=== PATIENT | female | born 1975 | race African-American/Black ===

== ENCOUNTER 2017-02-02 23:12 | Inpatient (IN) | payer OTHER ==
[2017-02-03 00:09] LABS: BASOPHIL 0.1 % (0-2.0); MCH 28.6 pg (25.7-33.7); MCHC 32.4 g/dl (32.0-36.0); MEAN CELL VOLUME 88.1 fl (80-96); MEAN PLT VOLUME 8.5 fl (7.5-11.1); NEUTROPHILS 87.7 % (42.8-82.8); PLATELET COUNT 326 K/MM3 (134-434); RDW 18.2 % (11.6-15.6); WHITE BLOOD COUNT 16.3 K/mm3 (4.0-10.0)
[2017-02-03 00:10] LABS: URINE APPEARANCE CLEAR; URINE BILIRUBIN NEGATIVE (NEGATIVE); URINE BLOOD NEGATIVE (NEGATIVE); URINE COLOR YELLOW; URINE GLUCOSE (UA) 3+ (NEGATIVE); URINE KETONE TRACE (NEGATIVE); URINE LEUK ESTERASE NEGATIVE (NEGATIVE); URINE NITRITE NEGATIVE (NEGATIVE); URINE UROBILINOGEN NEGATIVE E.U./dl (0.2-1.0)
[2017-02-03 00:15] LABS: URINE PROTEIN 1+ (NEGATIVE)
[2017-02-03 00:17] LABS: URINE BACTERIA RARE /hpf (NONE SEEN); URINE HYALINE CAST 26 /lpf; URINE MUCUS MANY; URINE RBC 2 /hpf (0-3); URINE WBC 2 /hpf (3-5)
[2017-02-03] MEDS ORDERED: SODIUM CHLORIDE 1,000 ML IV STA ×2 (00:18→03:10)
[2017-02-03] MEDS ORDERED: ONDANSETRON 4 MG/2 ML VIAL IVPUSH ONE ×2 (00:18→03:10)
[2017-02-03] MEDS ORDERED: morphine CARPU-JECT 4 MG/1 ML DISP.SYRIN IVPUSH ONE ×2 (00:18→03:10)
[2017-02-03] MEDS ORDERED: ONDANSETRON 4 MG/2 ML VIAL ONE ×2 (00:28→03:20)
[2017-02-03] MEDS ORDERED: morphine CARPU-JECT 4 MG/1 ML DISP.SYRIN ONE ×2 (00:28→03:20)
[2017-02-03 00:29] LABS: ALBUMIN 3.6 g/dl (3.4-5.0); ALK PHOS 128 U/L (45-117); ANION GAP 17 (8-16); CALCIUM 8.5 mg/dL (8.5-10.1); CO2 23 mmol/L (21-32); COCKROFT - GAULT 71.5615; CREATININE 0.8 mg/dL (0.55-1.02); SGOT/AST 28 U/L (15-37); SGPT/ALT 26 U/L (12-78)
[2017-02-03 00:35] LABS: GLUCOSE,RANDOM 302 mg/dL (74-106)
[2017-02-03] MEDS ORDERED: ONDANSETRON 4 MG/2 ML VIAL IVPB PRN (03:54)
[2017-02-03] MEDS ORDERED: MAGNESIUM SULF 50% (8.12 MEQ/2 ML-1 GM VIAL) IVPB ONE ×2 (04:06→07:04)
[2017-02-03] MEDS: LACTATED RINGERS SOLUTION 1,000 ML IV SCH (04:10)
--- NOTE | 2017-02-03 04:10 | PDOC ---
History of Present Illness - General Chief Complaint: Pain Stated Complaint: ACUTE PANCREATIS, DIZZY WEAK Time Seen by Provider: 02/02/17 23:33 History Source: Patient Exam Limitations: No Limitations - History of Present Illness Travel History: No Initial Comments: 02/03/17 04:05 41yo Female patient w/ PmHx: Pancreatitis presents to ED c/o sudden onset abdominal pain followed by abdominal bloating. Patient state symptoms began around 4-5 am yesterday morning and progressed to n/v, chills. Patient verbalized history of pancreatitis, but never this bad. Denies fever, CP, diff breathing, or any other complaints at this time. Timing/Duration: reports: getting worse, changing over time Quality: reports: severe Pain Radiation: reports: RUQ, LLQ, epigastric Activities at Onset: reports: sleep Treatment Prior to Arrive: improves with: analgesics Aggravating Factors: worse with: None, Defecation, Eating, Emotional upset, Exertion, [place], Movement, Voiding, Change in position Alleviating Factors: worse with: None, Belching, Shallow Breathing, Defecation, Eating, Holding Breath, Passing Gas, Change in Position, Rest, Voiding, Vomiting Past History - Travel Traveled outside of the country in the last 30 days: No Close contact w/someone who was outside of country & ill: No - Past Medical History Allergies/Adverse Reactions: Allergies Allergy/AdvReac Type Severity Reaction Status Date / Time No Known Allergies Allergy Verified 02/02/17 23:26 Home Medications: Ambulatory Orders NK [No Known Home Medication] 02/03/17 - Psycho/Social/Smoking Cessation Hx Suicidal Ideation: No Smoking History: Current every day smoker Have you smoked in the past 12 months: No Number of Cigarettes Smoked Daily: 8 Information on smoking cessation initiated: No Hx Alcohol Use: No Drug/Substance Use Hx: No Abd/GI Specific PMHX - Complaint Specific PMHX Colitis: No Diverticulitis: No Gall Bladder Disease: No GERD: No Hepatitis: No Irritable Bowel Synd (IBS): No Pancreatitis: Yes GI Ulcer Disease: No Review of Systems - Review of Systems Able to Perform ROS?: Yes Is the patient limited Green[place]ic proficient: No Constitutional: Yes: Chills. No: Fever Respiratory: No: Cough, Shortness of Breath, Stridor, Wheezing Cardiac (ROS): No: Chest Pain, Lightheadedness, Palpitations, Syncope, Chest Tightness ABD/GI: Yes: Abdominal Distended, Nausea, Poor Appetite, Poor Fluid Intake, Vomiting, Abdominal cramping (LUQ, RUQ). No: Constipated, Diarrhea : No: Burning, Dysuria, Flank Pain, Hematuria Musculoskeletal: No: Back Pain Integumentary: No: Bruising, Erythema, Rash, Sweating Neurological: No: Headache All Other Systems: Reviewed and Negative *Physical Exam - Vital Signs Last Vital Signs Temp Pulse Resp BP Pulse Ox 97.9 F 102 H 29 H 134/95 97 02/02/17 23:26 02/03/17 03:40 02/03/17 03:40 02/03/17 03:40 02/03/17 03:40 - Physical Exam General Appearance: Yes: Apparent Distress, Disheveled, Moderate Distress, Thin Neck: positive: Trachea midline, Supple. negative: Decreased range of motion, Stridor, Lymphadenopathy (R), Lymphadenopathy (L) Respiratory/Chest: positive: Lungs Clear, Normal Breath Sounds, Rapid RR. negative: Chest Tender, Respiratory Distress, Accessory Muscle Use, Labored Respiration, Stridor, Wheezing Cardiovascular: positive: Tachycardia Gastrointestinal/Abdominal: positive: Tender, Soft, Increased Bowel Sounds, Distended, Guarding, Rebound, Tenderness Musculoskeletal: positive: Normal Inspection. negative: CVA Tenderness, Decreased Range of Motion Extremity: positive: Normal Capillary Refill, Normal Inspection, Normal Range of Motion. negative: Pedal Edema, Swelling, Calf Tenderness, Erythema Integumentary: positive: Normal Color, Dry, Warm. negative: Moist, Hives, Rash , Swelling, Bruising Neurologic: positive: traffic agent II-XII NML intact, Fully Oriented, Alert, Normal Mood/ Affect, Normal Response, Motor Strength / ED Treatment Course - LABORATORY CBC & Chemistry Diagram: 02/02/17 23:45 02/02/17 23:45 - ADDITIONAL ORDERS Additional order review: Laboratory Results 02/03/17 02/02/17 02/02/17 00:17 23:45 23:45 Sodium 139 Potassium 3.3 L Chloride 99 Carbon Dioxide 23 Anion Gap 17 H BUN 10 Creatinine 0.8 Creat Clearance w eGFR > 60 Random Glucose 302 H* Calcium 8.5 Magnesium 1.5 L Total Bilirubin 1.0 AST 28 ALT 26 Alkaline Phosphatase 128 H Total Protein 7.0 Albumin 3.6 Total Amylase 206 H Lipase 2636 H Serum , Qual Urine Color Urine Appearance Urine pH Urine Protein Urine Glucose (UA) Urine Ketones Urine Blood Urine Nitrite Urine Bilirubin Urine Urobilinogen Ur Leukocyte Esterase Urine RBC Urine WBC Ur Epithelial Cells Urine Bacteria Hyaline Casts Urine Mucus Blood Type B POSITIVE Antibody Screen Negative 02/02/17 23:45 Sodium Potassium Chloride Carbon Dioxide Anion Gap BUN Creatinine Creat Clearance w eGFR Random Glucose Calcium Magnesium Total Bilirubin AST ALT Alkaline Phosphatase Total Protein Albumin Total Amylase Lipase Serum , Qual Negative Urine Color Yellow Urine Appearance Clear Urine pH 5.0 Urine Protein 1+ H Urine Glucose (UA) 3+ H Urine Ketones Trace H Urine Blood Negative Urine Nitrite Negative Urine Bilirubin Negative Urine Urobilinogen Negative Ur Leukocyte Esterase Negative Urine RBC 2 Urine WBC 2 Ur Epithelial Cells Few Urine Bacteria Rare Hyaline Casts 26 Urine Mucus Many Blood Type Antibody Screen 02/02/17 23:45 RBC 2.88 L MCV 88.1 MCHC 32.4 RDW 18.2 H MPV 8.5 Neutrophils % 87.7 H Lymphocytes % 6.8 L Monocytes % 5.4 Eosinophils % 0.0 Basophils % 0.1 - RADIOLOGY Radiology Studies Ordered: Category Date Time Status ABDOMEN & PELVIS CT WITH CONTR [CT] Stat CT Scan 02/03/17 00:19 Taken - Medications Given in the ED: ED Medications Discontinued Medications Generic Name Dose Route Start Last Admin Trade Name Freq PRN Reason Stop Dose Admin Sodium Chloride 1,000 mls @ 1,000 mls/hr 02/03/17 00:18 02/03/17 00:15 Normal Saline - IV 02/03/17 01:17 1,000 mls/hr ASDIR STA Administration Morphine Sulfate 4 mg 02/03/17 00:18 02/03/17 00:37 Morphine Injection - IVPUSH 02/03/17 00:19 4 mg ONCE ONE Administration Morphine Sulfate 4 mg 02/03/17 03:10 02/03/17 03:33 Morphine Injection - IVPUSH 02/03/17 03:11 4 mg ONCE ONE Administration Ondansetron HCl 4 mg 02/03/17 00:18 02/03/17 00:37 Zofran Injection IVPUSH 02/03/17 00:19 4 mg ONCE ONE Administration Ondansetron HCl 4 mg 02/03/17 03:10 02/03/17 03:33 Zofran Injection IVPUSH 02/03/17 03:11 4 mg ONCE ONE Administration Progress Note - Progress Note Progress Note: SPOKE WITH DR. CHRISTIAN MADRID (SURGERY) WHO WILL CONSULT ON CASE. REQUEST THAT PATIENT BE PLACED IN ICU. - 0340 am. SPOKE WITH ZACH MORELAND (ICU) WHO ACCEPTED PATIENT- 0400 am. *DC/Admit/Observation/Transfer Diagnosis at time of Disposition: Acute pancreatitis Qualifiers: Pancreatitis type: unspecified pancreatitis type Acute pancreatitis complication: uninfected necrosis Qualified Code(s): K85.91 - Acute pancreatitis with uninfected necrosis, unspecified - Discharge Dispostion Condition at time of disposition: Guarded Admit: Yes
--- NOTE | 2017-02-03 04:27 | HP ---
Admitting History and Physical - Admission Chief Complaint: abdominal pain History of Present Illness: 41 yo f w hx of etoh abuse, pancreatitis, who presents to the ER for eval of abdominal pain. She reports pain started 2 days ago. she reports sharp epigastric pain 9/10 radiating to her back. Reports pain aggravated with any type of movement, talking or coughing. She reports taking Tylenol w little effect. she reports recent increase in abdominal girth. She reports dark stools x 2 days but attributes that to eating kale. She report malaise, chills and sweats. She reports associated n/v/d. Denies fevers. She reports having good bowel movement 3 days ago. She reports drinking 1/2 liter of Pitron liquor daily. She reports her last flare of pancreatitis was 1 year ago at [facility] where she was given IV fluids and pain meds. PMH/PSH- etoh abuse, pancreatitis Social- Daily 1/2 pitron. 5-7cigs daily. daily weed user. Works at [employer] Famhx- Grandfather- asbestosis. Grandmother- Heart disease, HTn PCP- none Ros neg except for HPI PE: Gen- alert, appears uncomfortable Hent- at/nc, gabriel, neck supple, trachea midline Resp- shallow breathing, no cough, no rales, no ronchi, lungs ctab, no cyanosis Cards- s1s2 heard, tachy, no JVD, no leg edema Gi- distended, firm, no rebound, no guarding , bs normoactive Skin- no erythema, no lesions, healed scar to mid abdomen Psych- cooperative, no agitation Neuro- cn 2-12 grossly intact, no facial droop, no seizure Prob list pancreatitis leukocytosis hypomagnesemia hypokalemia SIRS splenic rupture hemoperitoneum Anemia Hyperglycemia Imaging: CTAP: Emt Driver: ([email or web address]) Report Date: 02/03/2017 02:37:00 Report Status: Addendum Begin of Report Content Referring Physician: Chani Olguin 3:13 AM Delores Machias: Festus Sheridan, sending Dr Wilde on pt Olguin THIS DOCUMENT HAS BEEN ELECTRONICALLY SIGNED Festus Shell M.D. 02/03/2017 03:16 YADY Sommer Please call Imaging Mold Maker [phone] ([phone]) with questions. PREVIOUS REPORT: Referring Physician : Chani Amin Patient Name: Nupur Olguin This is a preliminary report by imaging carbon accountant Exam: Contrast-enhanced CT abdomen and pelvis Images: [id number] Clinical indication: Severe abdominal pain. Findings: The lung bases are clear. A moderate to large amount of soft tissue attenuation ascites is seen throughout the abdomen and pelvis consistent with hemoperitoneum. A cystic hypodensity is noted in the right lobe liver measuring 19 mm in diameter. The liver has an otherwise normal appearance. The gallbladder is unremarkable. A soft tissue attenuation mass scallops and encases the majority of the spleen measuring up to 10 x 6 cm in diameter and appears to represent a large subcapsular hematoma with rupture of the capsule. Heterogeneity of the pancreatic tail is noted in the splenic hilum. Peripancreatic fluid is noted. There is heterogeneous attenuation of pancreatic head. The splenic vein, superior mesenteric vein and portal vein are all patent. The adrenal glands are unremarkable. The kidneys have a normal appearance and enhance symmetrically. There is no evidence of urinary tract obstruction. The gastrointestinal tract does not appear obstructed. No thickened or dilated bowel is seen. No mesenteric infiltration or free fluid. The uterus is heterogeneous with numerous fibroids many of which appear to be degenerating. No adnexal masses are seen. The urinary bladder is unremarkable. No abdominal or pelvic adenopathy is seen. No lytic or blastic destructive osseous lesions are seen. Impression: Large amount of hemoperitoneum appears to be the result of a splenic hematoma. Peripancreatic fluid and heterogeneity of the pancreas in the head uncinate and tail is noted this could represent pancreatitis. Alternatively the heterogeneous irregular soft tissue in the pancreatic tail cover present a neoplasm. The splenic hemorrhage could be the result of an immediate/early complication of acute pancreatitis. CXR pending EKG pending a/p-41 yo f w hx of etoh abuse, pancreatitis, who presents to the ER for eval of abdominal pain and found to have hemoperitoneum and ?pancreatitis 1. Splenic rupture/ Hemoperitoneum unclear etiology Abdomen distended, firm w diffuse TTP on exam Abdomen checks q 4hours Per attending in ER case discussed w surgery who recommended ICU monitoring until seen in AM Monitor CBC frequently 2.? Pancreatitis probably related to etoh abuse CTAP shows Peripancreatic fluid and heterogeneity of the pancreas in the head uncinate and tail is noted this could represent pancreatitis. Patient reports drinking 1/2 Liter of pitron daily Lipase 2K Continue IVF Pain control GI follow up 3. Electrolyte derangements: hypokalemia, hypomagnesemia Replete as needed 4. SIRS likely related to pancreatitis 5. Anemia ? 2/2 splenic rupture FU iron studies, FOBT [id number] CBC 6. Etoh abuse w/out signs of WD Consult amanda Zhang bag x 1 Thiamine IVPB until ok to have PO Prn Ativan 7. Hyperglycemia possibly related to pancreatitis FU A1c SSI FEN NPO IVF DVT prophy scd, oob. hold chemoprophylaxis 2/2 ? OR Dispo- requires >2mn stay for splenic rupture, pancreatitis, hemoperitoneum W/U. 7am 02/03/[address] akbar regarding drop in hg to 6.2. He suspects it is related to IVF + ?bleed. He recommends additional 3UPRBCs. He will FU with pt today. History Source: Patient, Family Member Limitations to Obtaining History: No Limitations - Smoking History Smoking history: Current every day smoker Have you smoked in the past 12 months: No Aproximately how many cigarettes per day: 8 - Alcohol/Substance Use Hx Alcohol Use: No Home Medications - Allergies Allergies/Adverse Reactions: Allergies Allergy/AdvReac Type Severity Reaction Status Date / Time No Known Allergies Allergy Verified 02/02/17 23:26 - Home Medications Home Medications: Ambulatory Orders NK [No Known Home Medication] 02/03/17 Physical Examination Vital Signs: Vital Signs Temperature 97.9 F 02/02/17 23:26 Pulse Rate 102 H 02/03/17 03:40 Respiratory Rate 29 H 02/03/17 03:40 Blood Pressure 134/95 02/03/17 03:40 O2 Sat by Pulse Oximetry (%) 97 02/03/17 03:40 Labs: CBC, BMP 02/02/17 23:45 02/02/17 23:45 Visit type - Emergency Visit Emergency Visit: Yes ED Registration Date: 02/03/17 Care time: The patient presented to the Emergency Department on the above date and was hospitalized for further evaluation of their emergent condition. - New Patient This patient is new to me today: Yes Date on this admission: 02/03/17 - Critical Care Critical Care patient: No
[2017-02-03 05:22] LABS: ARTERIAL BLD GAS O2 SATURATION 96.9 % (90-98.9); ARTERIAL BLOOD GAS HCO3 22.8 meq/L (22-26); ARTERIAL BLOOD GAS PO2 84.2 mmHg (80-100); ARTERIAL BLOOD GAS pH 7.42 (7.35-7.45)
[2017-02-03 05:23] LABS: ALLENS TEST POSITIVE; ART PUNCT SITE RIGHT RADIAL; LPM/O2% 21%; METHEMOGLOBIN 0.6 % (0.4-1.5); PT. ON O2? NO; TYPE OF O2 R/A
[2017-02-03 05:57] LABS: BASOPHIL 0.6 % (0-2.0); EOSINOPHIL 0.1 % (0-4.5); MCH 28.1 pg (25.7-33.7); MEAN CELL VOLUME 87.7 fl (80-96); MEAN PLT VOLUME 8.6 fl (7.5-11.1); NEUTROPHILS 76.6 % (42.8-82.8); PLATELET COUNT 253 K/MM3 (134-434); RDW 17.9 % (11.6-15.6); WHITE BLOOD COUNT 12.4 K/mm3 (4.0-10.0)
[2017-02-03] MEDS ORDERED: LORAZEPAM CARPU-JECT 2 MG/ML DISP.SYRIN IVPUSH PRN (05:59)
[2017-02-03 06:30] VITALS: BMI 18.4
[2017-02-03] MEDS ORDERED: FOLIC ACID INJECTION - 1 MG, THIAMINE HCL 100 MG, MULTIVIT INJECTION ADULT 10 ML in SOD... IVPB ONE (06:30)
--- NOTE | 2017-02-03 06:31 | CONSULT ---
Consult Consult Specialty:: Pulm/CCM - History of Present Illness Chief Complaint: Abd pain History of Present Illness: 41 yo f w hx of etoh abuse, pancreatitis, who presents to the ER with c/o of one day of acute abdominal pain and bloating. She reports dark stools, nausea, bilious emesis and non bloody diarrhea. Denies fevers, chills. She reports drinking 1/2 liter of Pitron liquor daily and reported drinking more at a family celebration. She had a episode of pancreatitis about a year ago although not as severe which was treated with fluids and pain meds. In ED she was hemodynamically stable, Lipase>2000. CT A/P c/w hemoperitoneum. Dr Freddy Oviedo of surgery was consulted and she was transferred to ICU for monitoring. In ICU she was rec'd A+O x3, HR 96, BP 138/105, RR 29, afebrile. Abd distended, firm, tympanic and tender with c/o 10/10 abd pain. Notified Hgb 8.2->6.4. 2U PRBC ordered. LR infusing at 150cc/h - History Source History Provided By: Patient, Medical Record - Past Medical History Gastrointestinal: Yes: Pancreatitis - Alcohol/Substance Use Hx Alcohol Use: Yes History of Substance Use: reports: Marijuana - Smoking History Smoking history: Current every day smoker Have you smoked in the past 12 months: No Aproximately how many cigarettes per day: 8 Home Medications - Allergies Allergies/Adverse Reactions: Allergies Allergy/AdvReac Type Severity Reaction Status Date / Time No Known Allergies Allergy Verified 02/02/17 23:26 - Home Medications Home Medications: Ambulatory Orders NK [No Known Home Medication] 02/03/17 Family Disease History - Family Disease History Family History: Unremarkable Review of Systems - Review of Systems Constitutional: reports: Loss of Appetite Eyes: reports: No Symptoms HENT: reports: No Symptoms Neck: reports: No Symptoms Cardiovascular: reports: No Symptoms Respiratory: reports: No Symptoms Gastrointestinal: reports: Abdominal Pain, Bloating, Diarrhea, Nausea, Vomiting Genitourinary: reports: No Symptoms Physical Exam Vital Signs: Vital Signs Temperature 97.9 F 02/02/17 23:26 Pulse Rate 96 H 02/03/17 04:56 Respiratory Rate 31 H 02/03/17 04:56 Blood Pressure 140/93 02/03/17 04:56 O2 Sat by Pulse Oximetry (%) 98 02/03/17 04:56 Constitutional: Yes: Mild Distress, Thin Eyes: Yes: WNL, PERRL HENT: Yes: Normocephalic Neck: Yes: Supple, Trachea Midline Cardiovascular: Yes: Regular Rate and Rhythm, Tachycardia Respiratory: Yes: CTA Bilaterally Gastrointestinal: Yes: Distention, Tenderness, Tenderness, Epigastrium ...Rectal Exam: Yes: Deferred Renal/: Yes: WNL Musculoskeletal: Yes: WNL Extremities: Yes: WNL Edema: No Peripheral Pulses WNL: Yes Neurological: Yes: Alert, Oriented ...Motor Strength: WNL Labs: CBC,CMP WBC 12.4 K/mm3 (4.0-10.0) H 02/03/17 05:05 RBC 2.27 M/mm3 (3.60-5.2) L D 02/03/17 05:05 Hgb 6.4 GM/dL (10.7-15.3) L* D 02/03/17 05:05 Hct 19.9 % (32.4-45.2) L D 02/03/17 05:05 MCV 87.7 fl (80-96) 02/03/17 05:05 MCHC 32.0 g/dl (32.0-36.0) 02/03/17 05:05 RDW 17.9 % (11.6-15.6) H 02/03/17 05:05 Plt Count 253 K/MM3 (134-434) D 02/03/17 05:05 MPV 8.6 fl (7.5-11.1) 02/03/17 05:05 Neutrophils % 76.6 % (42.8-82.8) 02/03/17 05:05 Lymphocytes % 15.6 % (8-40) D 02/03/17 05:05 Monocytes % 7.1 % (3.8-10.2) 02/03/17 05:05 Eosinophils % 0.1 % (0-4.5) D 02/03/17 05:05 Basophils % 0.6 % (0-2.0) D 02/03/17 05:05 Sodium 139 mmol/L (136-145) 02/02/17 23:45 Potassium 3.3 mmol/L (3.5-5.1) L 02/02/17 23:45 Chloride 99 mmol/L (98-107) 02/02/17 23:45 Carbon Dioxide 23 mmol/L (21-32) 02/02/17 23:45 Anion Gap 17 (8-16) H 02/02/17 23:45 BUN 10 mg/dL (7-18) 02/02/17 23:45 Creatinine 0.8 mg/dL (0.55-1.02) 02/02/17 23:45 Creat Clearance w eGFR > 60 (>60) 02/02/17 23:45 Random Glucose 302 mg/dL (74-106) H* 02/02/17 23:45 Calcium 8.5 mg/dL (8.5-10.1) 02/02/17 23:45 Magnesium 1.5 mg/dL (1.8-2.4) L 02/03/17 00:17 Total Bilirubin 1.0 mg/dL (0.2-1.0) 02/02/17 23:45 AST 28 U/L (15-37) 02/02/17 23:45 ALT 26 U/L (12-78) 02/02/17 23:45 Alkaline Phosphatase 128 U/L (45-117) H 02/02/17 23:45 Total Protein 7.0 g/dl (6.4-8.2) 02/02/17 23:45 Albumin 3.6 g/dl (3.4-5.0) 02/02/17 23:45 Total Amylase 206 U/L (25-115) H 02/03/17 00:17 Lipase 2636 U/L (73-393) H 02/02/17 23:45 Serum , Qual Negative 02/02/17 23:45 Imaging - Results Chest X-ray: Report Reviewed (Clear) Cat Scan: Report Reviewed (Hemoperitoneum ,m/l splenic hematoma, pancreatitis) Problem List - Problems (1) Pancreatitis, acute Code(s): K85.90 - ACUTE PANCREATITIS WITHOUT NECROSIS OR INFECTION, UNSP Qualifiers: Pancreatitis type: alcohol induced Acute pancreatitis complication: uninfected necrosis Qualified Code(s): K85.21 - Alcohol induced acute pancreatitis with uninfected necrosis Assessment/Plan 41 logan with PMHx of ETOH abuse and pancreatitis now with acute pancreatitis flair c/b hemoperitoneum 2/2 splenic hematoma, anemia Plan: GI/Heme: pancreatitis and splenic hematoma, severe anemia -Surgery consult -Maintain large bore IV access -IVF LR at 150cc/h -Serial CBC and coags -Transfuse PRBC for hgb <7 -Morphine 4mg IV for pain management -Monitor O2 sat re high risk of fluid overload and ARDS with pancreatitis -Strict I+O -Monitor BMP and electrolytes
[2017-02-03] MEDS ORDERED: morphine CARPU-JECT 4 MG/1 ML DISP.SYRIN IVPUSH PRN (06:40)
[2017-02-03] MEDS ORDERED: KCL 10 MEQ IVPB 100 ML IVPB SCH ×2 (06:45→07:45)
[2017-02-03] MEDS: INSULIN SLIDING SCALE (NOVOLOG) 1 VIAL SQ SCH ×3 (07:55→18:32)
[2017-02-03] MEDS ORDERED: SODIUM CHLORIDE 0.9% P/F 10 ML VIAL IJ ONE ×3 (08:28→09:19)
[2017-02-03] MEDS ORDERED: PHENYLEPHRINE HCL 10 MG/1 ML SINGLE DOSE VIAL ONE (08:28)
[2017-02-03] MEDS ORDERED: ePHEDrine SULFATE 50 MG/1 ML AMPULE ONE (08:29)
[2017-02-03] MEDS ORDERED: PROPOFOL 20 ML ONE (08:30)
[2017-02-03] MEDS ORDERED: LIDOCAINE HCL/PF 2% SDV 5ML VIAL ONE (08:30)
[2017-02-03] MEDS ORDERED: ROCURONIUM BROMIDE 50 MG/5 ML VIAL ONE ×2 (08:31→10:25)
--- NOTE | 2017-02-03 08:31 | HOSP ---
Physical Examination Vital Signs: Vital Signs Temperature 98.4 F 02/03/17 07:22 Pulse Rate 97 H 02/03/17 07:22 Respiratory Rate 333 H 02/03/17 07:22 Blood Pressure 133/93 02/03/17 07:22 O2 Sat by Pulse Oximetry (%) 99 02/03/17 07:07 Constitutional: Yes: Anxious Eyes: Yes: Sclera Icterus (mild) HENT: Yes: WNL, Other (mild exopahalmus) Neck: Yes: Supple Cardiovascular: Yes: Regular Rate and Rhythm, S1, S2 Respiratory: Yes: CTA Bilaterally, SOB, Tachypnea Gastrointestinal: Yes: Distention, Pulsatile Mass (epigastric hernia, reproducile), Tenderness, Epigastrium, Tenderness, Rebound Extremities: Yes: WNL Edema: No Peripheral Pulses WNL: Yes Integumentary: Yes: Skin Tear (abdomen) Wound/Incision: Yes: Other (transverse abdominal burn, healing (3 weeks ago cooking injury)) Neurological: Yes: Alert, Oriented, Cran Nerves II-XII Intact Psychiatric: Yes: Alert, Oriented Labs: CBC, BMP 02/03/17 05:05 Hospitalist Encounter Assessment: Assessment: 41 year old female with hx of ETOH abuse, pancreatitis admitted with x2 days of of acute abdominal pain and bloating, dark stools, nausea, bilious emesis and non bloody diarrhea. Last drink was Thursday 02/01. Plan: 1. 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 Acute pancreatitis - Possible d/t above rupture, last drink Saturday - LR @150cc/hr, monitor resp status and signs of ARDS - Trend Lipase 3. Hypomagnesemia - Repleted 2gm in ED 4. Hypokalemia - replete 10meq x2 riders 5. Acute blood loss anemia - Transfuse blood as above 6. ETOH - Ativan q2 PRN - Pt states she wants rehab 7. PPx - DVT: SCDs, avoid chemical AC d/t bleeding - Nutrition: NPO
[2017-02-03] MEDS ORDERED: MIDAZOLAM HCL 2 MG/2 ML SINGLE DOSE VIAL ONE (08:44)
[2017-02-03] MEDS ORDERED: ETOMIDATE 20 MG/10 ML AMPUL IVPUSH ONE (08:45)
[2017-02-03] MEDS: POTASSIUM CHLORIDE 20 MEQ PREMIX IVPB 100 ML IVPB SCH (09:02)
[2017-02-03] MEDS ORDERED: ceFAZolin SODIUM 1 GM VIAL ONE (09:20)
[2017-02-03] MEDS ORDERED: ceFAZolin SODIUM 1 GM VIAL IVPB ONE (09:21)
[2017-02-03] MEDS: THIAMINE HCL 200 MG/2 ML VIAL IVPB SCH (09:52)
[2017-02-03 09:57] LABS: MAGNESIUM 1.6 mg/dL (1.8-2.4)
[2017-02-03 10:00] LABS: AMYLASE 273 U/L (25-115); ANION GAP 10 (8-16); CALCIUM 7.4 mg/dL (8.5-10.1); CO2 23 mmol/L (21-32); CREATININE 0.4 mg/dL (0.55-1.02); GLUCOSE,RANDOM 114 mg/dL (74-106); PHOSPHOROUS 3.4 mg/dL (2.5-4.9); SGPT/ALT 22 U/L (12-78); TOT PROT 5.8 g/dl (6.4-8.2)
[2017-02-03 10:01] LABS: ALK PHOS 103 U/L (45-117); BILIRUBIN,TOTAL 0.9 mg/dL (0.2-1.0)
[2017-02-03 10:02] LABS: MAGNESIUM 2.5 mg/dL (1.8-2.4); SGOT/AST 31 U/L (15-37)
[2017-02-03] MEDS ORDERED: THROMBIN (BOVINE) 5,000 UNIT VIAL TP ONE (10:42)
[2017-02-03] MEDS ORDERED: NEOSTIGMINE METHYLSULFATE 0.5 MG/ML - 10 ML MDV ONE (10:59)
[2017-02-03] MEDS ORDERED: GLYCOPYRROLATE 0.2 MG/1 ML VIAL ONE (11:00)
[2017-02-03] MEDS ORDERED: LABETALOL HCL 5 MG/1 ML (100MG/20 ML VIAL) ONE (11:03)
[2017-02-03] MEDS ORDERED: PROMETHAZINE HCL 25 MG/1 ML VIAL IVPB PRN (11:31)
[2017-02-03] MEDS ORDERED: DEXAMETHASONE SOD PHOSPHATE 4 MG/1 ML VIAL IVPUSH ONE (11:31)
[2017-02-03] MEDS ORDERED: HYDROmorphone *PCA* 10MG/50ML DISP.SYRIN PCA SCH (11:45)
[2017-02-03] MEDS: PIPERACILLIN/TAZOB 3.375 GM/50 ML PRE-DOCKED IVPB SCH ×3 (12:27→21:44)
[2017-02-03] MEDS: D5-1/2NS+20 MEQ KCL - 1,000 ML IV SCH (12:28)
[2017-02-03] MEDS ORDERED: chlordiazePOXIDE HCL 25 MG CAPSULE PO PRN (13:28)
[2017-02-03] MEDS ORDERED: chlordiazePOXIDE HCL 25 MG CAPSULE PO ONE (13:28)
--- NOTE | 2017-02-03 13:36 | CONSULT ---
Consult Detox [facility] Reason for Current Admission/Consult: Alcohol detox Referred by:: Dylan River NP - History History of Present Illness: 41 y/o woman with hx. of alcoholism is admitted with the dx. of acute pancreatitis, lipase 2636 & amylase 276. Pt. denies previous treatment for alcoholism. - History Source History Provided By: Patient, Medical Record - Alcohol/Substance Use Hx Alcohol Use: No - Current Drug/Alcohol Use Alcohol Route: Oral Frequency: Daily Amount used: Tequila 1 pint Age of first use: 38 Date of Last Use: 02/01/17 - Past Medical History Gastrointestinal: Yes: Pancreatitis ...LMP: 01/19/17 ...: No - Significant Medical Findings: Laboratory Results - last 24 hr 02/02/17 02/02/17 02/02/17 23:45 23:45 23:45 WBC 16.3 H RBC 2.88 L Hgb 8.2 L Hct 25.4 L MCV 88.1 MCHC 32.4 RDW 18.2 H Plt Count 326 MPV 8.5 Neutrophils % 87.7 H Lymphocytes % 6.8 L Monocytes % 5.4 Eosinophils % 0.0 Basophils % 0.1 Puncture Site ABG pH ABG pCO2 at Pt Temp ABG pO2 at Pt Temp ABG HCO3 ABG O2 Sat (Measured) ABG O2 Content ABG Base Excess Adi Test Carboxyhemoglobin Methemoglobin O2 Delivery Device Oxygen Flow Rate Sodium 139 Potassium 3.3 L Chloride 99 Carbon Dioxide 23 Anion Gap 17 H BUN 10 Creatinine 0.8 Creat Clearance w eGFR > 60 POC Glucometer Random Glucose 302 H* Calcium 8.5 Phosphorus Magnesium Ferritin Total Bilirubin 1.0 AST 28 ALT 26 Alkaline Phosphatase 128 H Total Protein 7.0 Albumin 3.6 Triglycerides Total Amylase Lipase 2636 H Serum , Qual Negative Urine Color Yellow Urine Appearance Clear Urine pH 5.0 Ur Specific [place] >= 1.030 H Urine Protein 1+ H Urine Glucose (UA) 3+ H Urine Ketones Trace H Urine Blood Negative Urine Nitrite Negative Urine Bilirubin Negative Urine Urobilinogen Negative Ur Leukocyte Esterase Negative Urine RBC 2 Urine WBC 2 Ur Epithelial Cells Few Urine Bacteria Rare Hyaline Casts 26 Urine Mucus Many Monoscreen Blood Type Antibody Screen Crossmatch Crossmatch IS Only 02/02/17 02/03/17 02/03/17 23:45 00:17 05:05 WBC 12.4 H RBC 2.27 L D Hgb 6.4 L* D Hct 19.9 L D MCV 87.7 MCHC 32.0 RDW 17.9 H Plt Count 253 D MPV 8.6 Neutrophils % 76.6 Lymphocytes % 15.6 D Monocytes % 7.1 Eosinophils % 0.1 D Basophils % 0.6 D Puncture Site ABG pH ABG pCO2 at Pt Temp ABG pO2 at Pt Temp ABG HCO3 ABG O2 Sat (Measured) ABG O2 Content ABG Base Excess Adi Test Carboxyhemoglobin Methemoglobin O2 Delivery Device Oxygen Flow Rate Sodium Cancelled Potassium Cancelled Chloride Cancelled Carbon Dioxide Cancelled Anion Gap Cancelled BUN Cancelled Creatinine Cancelled Creat Clearance w eGFR Cancelled POC Glucometer Random Glucose Cancelled Calcium Cancelled Phosphorus Cancelled Magnesium 1.6 L Ferritin Total Bilirubin Cancelled AST Cancelled ALT Cancelled Alkaline Phosphatase Cancelled Total Protein Cancelled Albumin Cancelled Triglycerides Cancelled Total Amylase 206 H Lipase Serum , Qual Urine Color Urine Appearance Urine pH Ur Specific [place] Urine Protein Urine Glucose (UA) Urine Ketones Urine Blood Urine Nitrite Urine Bilirubin Urine Urobilinogen Ur Leukocyte Esterase Urine RBC Urine WBC Ur Epithelial Cells Urine Bacteria Hyaline Casts Urine Mucus Monoscreen Blood Type B POSITIVE Antibody Screen Negative Crossmatch Crossmatch IS Only 02/03/17 02/03/17 02/03/17 05:16 05:30 07:00 WBC RBC Hgb Hct MCV MCHC RDW Plt Count MPV Neutrophils % Lymphocytes % Monocytes % Eosinophils % Basophils % Puncture Site Right radial ABG pH 7.42 ABG pCO2 at Pt Temp 36.2 ABG pO2 at Pt Temp 84.2 ABG HCO3 22.8 ABG O2 Sat (Measured) 96.9 ABG O2 Content 9.9 L* ABG Base Excess -1.0 Adi Test Positive Carboxyhemoglobin 2.8 H Methemoglobin 0.6 O2 Delivery Device R/a Oxygen Flow Rate 21% Sodium 141 Potassium 4.1 D Chloride 108 H Carbon Dioxide 23 Anion Gap 10 BUN 6 L D Creatinine 0.4 L D Creat Clearance w eGFR > 60 POC Glucometer Random Glucose 114 H D Calcium 7.4 L Phosphorus 3.4 Magnesium 2.5 H D Ferritin 55.980 Total Bilirubin 0.9 AST 31 ALT 22 Alkaline Phosphatase 103 Total Protein 5.8 L Albumin 3.0 L Triglycerides 72 Total Amylase 273 H D Lipase Serum , Qual Urine Color Urine Appearance Urine pH Ur Specific [place] Urine Protein Urine Glucose (UA) Urine Ketones Urine Blood Urine Nitrite Urine Bilirubin Urine Urobilinogen Ur Leukocyte Esterase Urine RBC Urine WBC Ur Epithelial Cells Urine Bacteria Hyaline Casts Urine Mucus Monoscreen Blood Type B POSITIVE Antibody Screen Crossmatch See Detail Crossmatch IS Only See Detail 02/03/17 02/03/17 02/03/17 07:30 07:30 07:53 WBC RBC Hgb Hct MCV MCHC RDW Plt Count MPV Neutrophils % Lymphocytes % Monocytes % Eosinophils % Basophils % Puncture Site ABG pH ABG pCO2 at Pt Temp ABG pO2 at Pt Temp ABG HCO3 ABG O2 Sat (Measured) ABG O2 Content ABG Base Excess Adi Test Carboxyhemoglobin Methemoglobin O2 Delivery Device Oxygen Flow Rate Sodium Cancelled Potassium Cancelled Chloride Cancelled Carbon Dioxide Cancelled Anion Gap Cancelled BUN Cancelled Creatinine Cancelled Creat Clearance w eGFR Cancelled POC Glucometer [phone] Random Glucose Cancelled Calcium Cancelled Phosphorus Cancelled Magnesium Cancelled Ferritin Total Bilirubin Cancelled AST Cancelled ALT Cancelled Alkaline Phosphatase Cancelled Total Protein Cancelled Albumin Cancelled Triglycerides Cancelled Total Amylase Cancelled Lipase Serum , Qual Urine Color Urine Appearance Urine pH Ur Specific [place] Urine Protein Urine Glucose (UA) Urine Ketones Urine Blood Urine Nitrite Urine Bilirubin Urine Urobilinogen Ur Leukocyte Esterase Urine RBC Urine WBC Ur Epithelial Cells Urine Bacteria Hyaline Casts Urine Mucus Monoscreen Negative Blood Type Antibody Screen Crossmatch Crossmatch IS Only labs noted Assessment Plan - Diagnosis (1) Pancreatitis, acute Status: Acute Qualifiers: Pancreatitis type: alcohol induced Acute pancreatitis complication: uninfected necrosis Qualified Code(s): K85.21 - Alcohol induced acute pancreatitis with uninfected necrosis (2) Alcohol dependence with uncomplicated withdrawal Status: Acute - Plan Plan: Ciwa not done because pt. is on morphine drip And PRN benzodiazepine. - Medication Detox Regimen/Protocol: Librium
[2017-02-03 13:53] LABS: BASOPHIL 0.1 % (0-2.0); EOSINOPHIL 0.2 % (0-4.5); MEAN CELL VOLUME 91.3 fl (80-96); MEAN PLT VOLUME 8.3 fl (7.5-11.1); NEUTROPHILS 74.5 % (42.8-82.8); PLATELET COUNT 200 K/MM3 (134-434); RDW 14.7 % (11.6-15.6); WHITE BLOOD COUNT 11.9 K/mm3 (4.0-10.0)
[2017-02-03 13:54] LABS: URINE APPEARANCE CLEAR; URINE BILIRUBIN NEGATIVE (NEGATIVE); URINE BLOOD NEGATIVE (NEGATIVE); URINE COLOR YELLOW; URINE GLUCOSE (UA) NEGATIVE (NEGATIVE); URINE KETONE NEGATIVE (NEGATIVE); URINE LEUK ESTERASE NEGATIVE (NEGATIVE); URINE NITRITE NEGATIVE (NEGATIVE); URINE UROBILINOGEN NEGATIVE E.U./dl (0.2-1.0)
[2017-02-03] MEDS: HYDROmorphone *PCA* 10MG/50ML DISP.SYRIN PCA SCH (14:00)
[2017-02-03 14:08] LABS: URINE PROTEIN 2+ (NEGATIVE)
[2017-02-03 14:09] LABS: URINE MUCUS RARE; URINE RBC 3 /hpf (0-3); URINE WBC 3 /hpf (3-5)
[2017-02-03] MEDS ORDERED: DEXAMETHASONE SOD PHOSPHATE 10 MG/1 ML VIAL ONE (14:57)
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
--- NOTE | 2017-02-03 16:26 | EKG ---
Test Reason : Blood Pressure : / mmHG Vent. Rate : 097 BPM Atrial Rate : 097 BPM P-R Int : 124 ms QRS Dur : 074 ms QT Int : 360 ms P-R-T Axes : 061 042 020 degrees QTc Int : 457 ms NORMAL SINUS RHYTHM NORMAL ECG NO PREVIOUS ECGS AVAILABLE Confirmed by TAMIKO BONDS MD ([id number]) on 02/03/2017 4:25:51 PM Referred By: Confirmed By:TAMIKO BONDS MD
--- NOTE | 2017-02-03 16:32 | OP ---
DATE OF OPERATION: 02/03/2017 PREOPERATIVE DIAGNOSIS: Ruptured spleen, abdominal hematoma, hemoperitoneum, chronically incarcerated ventral hernia. POSTOPERATIVE DIAGNOSIS: Ruptured spleen, abdominal hematoma, hemoperitoneum, chronically incarcerated ventral hernia. PROCEDURE: Exploratory laparotomy, drainage of abdominal hematoma in all 4 quadrants, splenectomy, repair of incarcerated ventral hernia (primary). SURGEON: Freddy Oviedo MD LIQUID SUGAR MELTER: None. ANESTHESIA: Alex Ulrich MD, (general). ESTIMATED BLOOD LOSS: Minimal. SPECIMEN: Remnant of spleen, portions of spleen with hematoma. INDICATIONS FOR PROCEDURE: This is a 41-year-old female who presented to the hospital with 2-day history of progressive abdominal pain. CT scan performed in the emergency room demonstrated findings consistent with a hemoperitoneum and a ruptured spleen. The patient was initially attempted to be managed medically but she had dropped her hemoglobin of 2 g within several hours of being here. She initially started on admission with a hemoglobin of 8, which is significantly low to begin with and is now 6. Since with this rapid change, it was felt that she would best undergo an operation. Also on physical examination, the patient was noted to be tachypneic and extremely distended, and these are clinical signs for an urgent splenectomy. DESCRIPTION: Patient identified and appropriately positioned on operating room table. After placement of general anesthesia, the abdomen prepped and draped in usual sterile fashion with ChloraPrep. During this time, the patient was receiving 2 units of blood and FFP as well as platelets had been ordered as well. A midline incision was made deep in the subcutaneous tissue. The fascia was divided in the midline down to the level of the peritoneum. The peritoneum was incised and the abdomen was entered. Upon entering the abdomen, the liver was noted to be extremely large (the patient had significant hepatomegaly, and the left lobe extended well into the left upper quadrant and the right lobe went down to the level of the iliac crest). Palpation in the left upper quadrant revealed a large amount of intraabdominal blood along with clot. There was also clot and blood in the left pelvis and left gutter. On the right side, it was more limited due to large liver. The obvious blood and hemoperitoneum was evacuated as well as the clots, and the clots were placed into a basin. Exploration of the left upper quadrant revealed multiple portions of spleen. There were also multiple hematomas in the left upper quadrant as well. Due to the limited incision that was made, a Bookwalter retractor was placed for exposure. The old hematoma and ruptured spleen were evacuated and placed into a bucket. The majority of the spleen was shattered. There was a nub of spleen approximately the size of a walnut that was left. This was bleeding profusely and was cracked. Attempt at salvage of this portion was made; however, it continued to bleed and therefore this portion had to be taken as well. The splenic artery and vein were taken with single Lissy clamp and the remnant of the spleen was removed. The vessels were suture ligated with a 0 silk suture. Next, the left upper quadrant was then copiously irrigated, the operative field examined and noted to be hemostatic. The left upper quadrant peritoneal surfaces were raw but there was no obvious bleeding coming. The distal end of the pancreas was evaluated on a limited basis due to the inflammatory process from the ruptured spleen or pancreatitis. It appeared that the patient had mild pancreatitis at this time as well, and this area was inflamed and thickened. However, I could not determine whether this was related to carcinoma nor chronic pancreatitis. The stomach was also dilated, an NG tube placed and the air extracted as best as possible. Next, the left upper quadrant was then copiously irrigated with warm saline, the operative field examined again for approximately 5 minutes, and no obvious bleeding was noted. The raw surface areas were managed with FloSeal. Next, the abdomen was irrigated in all 4 quadrants. Approximately 4 L of fluid was used. After this irrigation, the fluid retrieved was noted to be clear. The remainder of the abdomen was not explored nor touched or examined. The midline incision was then reapproximated with running number 1 PDS suture. The patient is also noted to have an incarcerated hernia approximately 3 inches above the umbilicus. This hernia was reduced back into the subfascial space, and the fascia overlying the hernia was reapproximated with interrupted number 1 PDS as well. A single interrupted stitch was placed approximately 1 cm above the hernia defect, and then the inferior stitch was run from that interrupted suture to meet in the midline, in the mid incision , with the upper suture. The subcutaneous space was then irrigated and the skin closed with ana rosa. At the conclusion of this case, sponge counts were correct. ATTESTATION: Brief operative note handwritten on the preprinted form. [place] HANDLE ASSEMBLER will be queried prior to giving narcotics. Ros ATKINS [id number] cc: ROBLES Herman
[2017-02-03] MEDS ORDERED: chlordiazePOXIDE HCL 25 MG CAPSULE PO SCH (17:00)
[2017-02-04] MEDS: PIPERACILLIN/TAZOB 3.375 GM/50 ML PRE-DOCKED IVPB SCH (03:06)
[2017-02-04 06:10] LABS: SERUM IRON 54 ug/dL (27-159); TOTAL IRON BINDING CAPACITY 303 ug/dL (250-450); UIBC 249 ug/dL (131-425)
[2017-02-04 06:21] LABS: BASOPHIL 0.1 % (0-2.0); EOSINOPHIL 0.1 % (0-4.5); MCH 30.6 pg (25.7-33.7); MCHC 34.1 g/dl (32.0-36.0); MEAN CELL VOLUME 89.9 fl (80-96); NEUTROPHILS 81.1 % (42.8-82.8); PLATELET COUNT 220 K/MM3 (134-434); RDW 15.3 % (11.6-15.6); WHITE BLOOD COUNT 16.8 K/mm3 (4.0-10.0)
[2017-02-04] MEDS: INSULIN SLIDING SCALE (NOVOLOG) 1 VIAL SQ SCH ×3 (06:37→19:51)
[2017-02-04] MEDS: LACTATED RINGERS SOLUTION 1,000 ML IV SCH (06:38)
[2017-02-04 06:41] LABS: ALBUMIN 2.2 g/dl (3.4-5.0); ANION GAP 7 (8-16); BILIRUBIN,TOTAL 0.8 mg/dL (0.2-1.0); CALCIUM 7.3 mg/dL (8.5-10.1); CO2 26 mmol/L (21-32); CREATININE 0.4 mg/dL (0.55-1.02); GLUCOSE,RANDOM 136 mg/dL (74-106); PHOSPHOROUS 2.4 mg/dL (2.5-4.9); SGOT/AST 209 U/L (15-37); SGPT/ALT 62 U/L (12-78); TOT PROT 4.8 g/dl (6.4-8.2)
[2017-02-04 06:49] LABS: ALK PHOS 78 U/L (45-117); THYROID STIMULATING HORMONE 5.63 uIU/ml (0.358-3.74)
--- NOTE | 2017-02-04 08:29 | PN ---
Progress Note, Physician Chief Complaint: s/p open splenectomy and ventral hernia repair. History of Present Illness: post op day one, BALANCE WHEEL MOTION INSPECTOR for post op pain control - Current Medication List Current Medications: Active Medications Hydromorphone HCl (Dilaudid Director Of Sustainable Design -) 10 mg BALANCE WHEEL MOTION INSPECTOR BALANCE WHEEL MOTION INSPECTOR [facility] PRN Reason: Protocol Stop: 02/10/17 11:31 Last Admin: 02/03/17 14:00 Dose: 10 mg Lactated Ringer's (Lactated Ringers Solution) 1,000 mls @ 150 mls/hr IV ASDIR [facility] Last Admin: 02/04/17 06:38 Dose: Not Given Potassium Chloride/Dextrose/Sod Cl (D5-1/2ns+20 Meq Kcl -) 1,000 mls @ 150 mls/ hr IV ASDIR [facility] Last Admin: 02/03/17 12:28 Dose: 150 mls/hr Insulin Aspart (Novolog Vial Sliding Scale -) 1 vial SQ TIDAC [facility] PRN Reason: Protocol Last Admin: 02/04/17 06:37 Dose: Not Given Lorazepam (Ativan Injection -) 2 mg IVPUSH Q2H PRN PRN Reason: ANXIETY Morphine Sulfate (Morphine Injection -) 4 mg IVPUSH Q3H PRN PRN Reason: PAIN Last Admin: 02/03/17 07:56 Dose: 4 mg Ondansetron HCl (Zofran Injection) 4 mg IVPB Q4H PRN PRN Reason: NAUSEA AND/OR VOMITING Promethazine HCl (Phenergan Injection -) 12.5 mg IVPB Q6H PRN PRN Reason: NAUSEA AND/OR VOMITING Thiamine HCl (Vitamin B1 Injection -) 200 mg IVPB DAILY [facility] Last Admin: 02/03/17 09:52 Dose: Not Given - Objective Vital Signs: Vital Signs Temperature 98.4 F 02/04/17 02:00 Pulse Rate 75 02/04/17 06:00 Respiratory Rate 16 02/04/17 06:00 Blood Pressure 113/57 02/04/17 06:00 O2 Sat by Pulse Oximetry (%) 96 02/03/17 21:00 Constitutional: Yes: Mild Distress Cardiovascular: Yes: WNL Respiratory: Yes: WNL, On Nasal O2 Gastrointestinal: Yes: Tenderness (nasogastric tube in place) Labs: CBC, BMP 02/04/17 05:50 02/04/17 05:50 Assessment/Plan post opday one, pain controlled with BALANCE WHEEL MOTION INSPECTOR, no nausea overnight, no adverse anesthetic events. Will continue BALANCE WHEEL MOTION INSPECTOR until NGT comes out and the patient is tolerating PO
[2017-02-04] MEDS: D5-1/2NS+20 MEQ KCL - 1,000 ML IV SCH ×3 (09:05→22:29)
[2017-02-04 09:30] LABS: HIV 1 & 2 AB NEGATIVE; HIV 1 AGp24 NEGATIVE
[2017-02-04] MEDS: THIAMINE HCL 200 MG/2 ML VIAL IVPB SCH (09:37)
--- NOTE | 2017-02-04 10:54 | PN ---
Physical Exam: SUBJECTIVE: Patient seen and examined. She has pain with movement or coughing, no nausea, feeling well. Agrees to get to chair today. Events: - Receiving 1 unit PRBC now - LINEMARKER pump in place until NGT removed OBJECTIVE: Vital Signs Period Temp Pulse Resp BP Sys/Mccann Pulse Ox Last 24 Hr 98 F-98.6 F 75-106 15-22 101-133/57-91 95-96 PE Neuro: alert, awake, cn 2-12intact HEENT: R IJ CDI, + NGT, + exophthalmos Pulm: CTAB CV: s1 s2 rrr no mrg Abd: mid line ana rosa, drg CDI, hypoactive BS : Cohn Ext: warm, no le edema Lines: - Right TLC - Left A line Laboratory Results - last 24 hr CBCD WBC 16.8 K/mm3 (4.0-10.0) H D 02/04/17 05:50 RBC 2.29 M/mm3 (3.60-5.2) L 02/04/17 05:50 Hgb 7.0 GM/dL (10.7-15.3) L D 02/04/17 05:50 Hct 20.6 % (32.4-45.2) L D 02/04/17 05:50 MCV 89.9 fl (80-96) 02/04/17 05:50 MCHC 34.1 g/dl (32.0-36.0) 02/04/17 05:50 RDW 15.3 % (11.6-15.6) 02/04/17 05:50 Plt Count 220 K/MM3 (134-434) 02/04/17 05:50 MPV 9.0 fl (7.5-11.1) 02/04/17 05:50 CMP Sodium 139 mmol/L (136-145) 02/04/17 05:50 Potassium 4.0 mmol/L (3.5-5.1) 02/04/17 05:50 Chloride 106 mmol/L (98-107) 02/04/17 05:50 Carbon Dioxide 26 mmol/L (21-32) 02/04/17 05:50 Anion Gap 7 (8-16) L 02/04/17 05:50 BUN 3 mg/dL (7-18) L D 02/04/17 05:50 Creatinine 0.4 mg/dL (0.55-1.02) L 02/04/17 05:50 Creat Clearance w eGFR > 60 (>60) 02/04/17 05:50 Calcium 7.3 mg/dL (8.5-10.1) L 02/04/17 05:50 Total Bilirubin 0.8 mg/dL (0.2-1.0) 02/04/17 05:50 AST 209 U/L (15-37) H D 02/04/17 05:50 ALT 62 U/L (12-78) D 02/04/17 05:50 Alkaline Phosphatase 78 U/L (45-117) D 02/04/17 05:50 Total Protein 4.8 g/dl (6.4-8.2) L 02/04/17 05:50 Albumin 2.2 g/dl (3.4-5.0) L D 02/04/17 05:50 02/03/17 02/03/17 02/03/17 07:00 07:00 07:30 Magnesium 2.5 H D Iron 54 TIBC 303 Iron Saturation 18 Transferrin Pending Triglycerides 72 Total Amylase 273 H D Lipase TSH Hepatitis A IgM Ab Hep Bs Antigen Hep B Core IgM Ab Hepatitis C Ab (EIA) Monoscreen Negative HIV 1&2 Antibody Screen HIV P24 Antigen 02/03/17 02/03/17 02/04/17 18:00 18:00 05:50 Magnesium Iron TIBC Iron Saturation Transferrin Triglycerides Total Amylase Lipase 410 H TSH 5.63 H Hepatitis A IgM Ab Pending Hep Bs Antigen Pending Hep B Core IgM Ab Pending Hepatitis C Ab (EIA) Pending Monoscreen HIV 1&2 Antibody Screen Negative HIV P24 Antigen Negative Active Medications Generic Name Dose Route Start Last Admin Trade Name Freq PRN Reason Stop Dose Admin Hydromorphone HCl 10 mg 02/03/17 12:39 02/03/17 14:00 Dilaudid Biological Scientist - LINEMARKER 02/10/17 11:31 10 mg LINEMARKER LUCIO Administration Protocol Potassium Chloride/Dextrose/Sod Cl 1,000 mls @ 150 mls/hr 02/03/17 12:30 09:05 D5-1/2ns+20 Meq Kcl - IV 150 mls/hr ASDIR LUCIO Administration Insulin Aspart 1 vial 02/03/17 07:00 02/04/17 06:37 Novolog Vial Sliding Scale - SQ Not Given TIDAC [facility] Protocol Lorazepam 2 mg 02/03/17 05:59 Ativan Injection - IVPUSH Q2H PRN ANXIETY Morphine Sulfate 4 mg 02/03/17 06:40 02/03/17 07:56 Morphine Injection - IVPUSH 4 mg Q3H PRN Administration PAIN Ondansetron HCl 4 mg 02/03/17 03:54 Zofran Injection IVPB Q4H PRN NAUSEA AND/OR VOMITING Promethazine HCl 12.5 mg 02/03/17 11:31 Phenergan Injection - IVPB Q6H PRN NAUSEA AND/OR VOMITING Thiamine HCl 200 mg 02/03/17 10:00 02/04/17 09:37 Vitamin B1 Injection - IVPB 200 mg DAILY LUCIO Administration Assessment: 41 year old female with hx of ETOH abuse, pancreatitis admitted with x2 days of of acute abdominal pain and bloating, dark stools, nausea, bilious emesis and non bloody diarrhea. Last drink was Thursday 02/01. Plan: 1. Acute splenic rupture - Due to trauma - POD 1 Splenectomy 02/03 - Transfused 4uprbc, 2 units FFP, 1uplts - Receiving 1 units prbc now - CBC @ 1400 - NPO - ID consult for vaccines, pneumococcal, meningococcal, haemophilus 2. Acute pancreatitis - Improved, likely from splenic rupture - IVF: d5 / ns 20meq 3. Acute blood loss anemia - Due to blunt trauma - Iron studies stable - Transfuse as above 4. ETOH - Ativan q2 PRN - Pt states she wants rehab 5. PPx - DVT: SCDs, hold Lovenox - Nutrition: NPO Visit type - Emergency Visit Emergency Visit: Yes ED Registration Date: 02/03/17 Care time: The patient presented to the Emergency Department on the above date and was hospitalized for further evaluation of their emergent condition. - New Patient This patient is new to me today: Yes Date on this admission: 02/04/17 - Critical Care Critical Care patient: No
[2017-02-04] MEDS ORDERED: HEMOQUE TEST 1 EACH EACH ONE (11:50)
--- NOTE | 2017-02-04 13:41 | CON.GI ---
Consult Consult Specialty:: GI Referred by:: Hospitalist Reason for Consultation:: Pancreatitis - History of Present Illness Chief Complaint: I had abdominal pain and distention History of Present Illness: 41 year old woman admitted through [facility] ER saturday evening for eval of abdominal pain. The pain had started Saturday morning and became progressively worse along with abdominal distention and vomiting x 4. Given worsening of her symptoms, she went to the ER where initial work-up revealed her to be tachycardic with WBC: 16 Hgb 8. She had a CT scan revealing large hemoperitoneum, a ruptured spleen, hepatomegaly, fluid around the pancreas raising ? of pancreatitis and "mass at the tail of the pancreas could not be excluded". She was taken to the OR by Dr. Oviedo and splenectomy, evacuation of hemoperitoneum was performed as well as repair of chronically incarcerated ventral hernia. 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 She is also an alcoholic, drinking 1/2-1 L of Tequila daily for about three years. Her last drink was this past saturday and she denies history of alcohol withdrawal. She gives a history of pancreatitis, first occurring about 2 years ago and treated at [facility]. She has not been worked up here for this in the past. - History Source History Provided By: Patient, Medical Record Limitations to Obtaining History: No Limitations - Past Medical History Gastrointestinal: Yes: Pancreatitis ...LMP: 01/19/17 ...: No Psych: Yes: Addictions (Alcoholism) - Past Surgical History Additional Surgical History: Denies any surgeries prior to her splenectomy - Alcohol/Substance Use Hx Alcohol Use: Yes (1/2-1 L of alcohol daily) History of Substance Use: reports: Marijuana - Smoking History Smoking history: Current every day smoker Have you smoked in the past 12 months: No Aproximately how many cigarettes per day: 8 - Social History Usual Living Arrangement: Alone ADL: Independent 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 Place of : [facility] History of Recent Travel: No Home Medications - Allergies Allergies/Adverse Reactions: Allergies Allergy/AdvReac Type Severity Reaction Status Date / Time No Known Allergies Allergy Verified 02/02/17 23:26 - Home Medications Home Medications: Ambulatory Orders NK [No Known Home Medication] 02/03/17 Family Disease History - Family Disease History Family Disease History: Other: Father (does not know his medical history), Mother (alive: healthy), Brother ( in infancy: crib ), Daughter (1 healthy daughter) Other Family History: No family history of colorectal cancer or other GI malignancy Review of Systems - Review of Systems Constitutional: denies: Unintentional Wgt. Loss Cardiovascular: denies: Chest Pain Respiratory: denies: SOB Gastrointestinal: reports: Abdominal Pain. denies: Constipation Physical Exam-GI Vital Signs: Vital Signs Temperature 98.5 F 02/04/17 10:00 Pulse Rate 80 02/04/17 10:00 Respiratory Rate 20 02/04/17 10:00 Blood Pressure 108/64 02/04/17 10:00 O2 Sat by Pulse Oximetry (%) 95 02/04/17 08:37 Constitutional: Yes: Calm Eyes: No: Sclera Icterus Cardiovascular: Yes: Regular Rate and Rhythm. No: Murmur Respiratory: Yes: CTA Bilaterally Gastrointestinal Inspection: Yes: Distention (protuberant abdomen), Scars ( midline vertical surgical site) ...Auscultate: Yes: Hypoactive Bowel Sounds ...Palpate: Yes: Tenderness (TTP at surgical site) ...Percussion: No: Tympanitic Edema: No Neurological: Yes: Alert, Oriented Labs: CBC, BMP 02/04/17 05:50 02/04/17 05:50 Hepatic Panel Total Bilirubin 0.8 mg/dL (0.2-1.0) 02/04/17 05:50 AST 209 U/L (15-37) H D 02/04/17 05:50 ALT 62 U/L (12-78) D 02/04/17 05:50 Alkaline Phosphatase 78 U/L (45-117) D 02/04/17 05:50 Albumin 2.2 g/dl (3.4-5.0) L D 02/04/17 05:50 Imaging - Results Cat Scan: Report Reviewed, Image Reviewed Problem List - Problems (1) Splenic rupture Assessment/Plan: S/P splenectomy: ? if her history of alcoholic pancreatitis led to splenic vein thrombosis leading to splenomegaly and predisposing her to splenic rupture Advised strict alcohol cessation. Explained the complications from pancreatitis / alcohol abuse including Post op care per surgery Hepatitis serologies are pending When acute issues are resolved, will need follow-up contrast imaging of her pancreas Monitor for alcohol withdrawal./ Consider detox eval Code(s): S36.09XA - OTHER INJURY OF SPLEEN, INITIAL ENCOUNTER
--- NOTE | 2017-02-04 13:52 | PN ---
Progress Note (short form) - Note Progress Note: ID consult dictated imp/reccd s/p emergency surgery for splenic rupture yesterday history of ETOH use doing well postop oob to chair asked to see for vaccine reccd d/w patient heightened risk of infection due to splenectomy and need to seek medical care immediately if she has fever she should be discharged with a scrpit for augmentin and instructed to take it immediately and seek medical care if she has fever as well she should get a medic alert bracelet regarding vaccines - ideally should wait 14 days post splenectomy but if adherence may be an issue- would vaccinate prior to discharge for pneumococcus ( prevnar followed by pneumovax in 8 weeks) will need repeat pneumovax in 5 years Meningococcal A vaccine - 2 doses Hemophilus B will need meningococcus B vaccine as well- can be given by PMD suggest we wait until just prior to discharge to vaccinate we will need to set her up with a PMD to f/u her vaccinations (meningococcal a and b are multiple doses) as well she should have yearly influenza vaccine agrees to HIV testing- will order
--- NOTE | 2017-02-04 14:31 | PN ---
Physical Exam: SUBJECTIVE: Patient seen and examined. She is feeling good today. She denies SOB , abdominal pain, dizziness. No overnight events. OBJECTIVE: Vital Signs Period Temp Pulse Resp BP Sys/Mccann Pulse Ox Last 24 Hr 98 F-98.6 F 75-106 15-22 101-133/57-91 95-96 GENERAL: The patient is awake, alert, and fully oriented, in no acute distress. HEAD: Normal with no signs of trauma. EYES: extraocular movements intact, sclera anicteric, conjunctiva clear, NG tube. ENT: oropharynx clear without exudates, moist mucous membranes. NECK: Trachea midline, full range of motion, supple. LUNGS: Breath sounds equal, clear to auscultation bilaterally, no wheezes, no crackles, no accessory muscle use. HEART: Regular rate and rhythm, S1, S2 without murmur, rub or gallop. ABDOMEN: Soft, nontender, nondistended, hypoactive bowel sounds, no guarding, no rebound, dressing applied to the wound on abdomen. EXTREMITIES: 2+ pulses, warm, well-perfused, no edema. NEUROLOGICAL: No facial asymmetry. Normal speech, gait not observed. PSYCH: Normal mood, normal affect. SKIN: Warm, dry, normal turgor, no rashes. Laboratory Results - last 24 hr 02/03/17 02/03/17 02/03/17 05:30 07:00 07:00 WBC RBC Hgb Hct MCV MCHC RDW Plt Count MPV Neutrophils % Lymphocytes % Monocytes % Eosinophils % Basophils % Sodium Potassium Chloride Carbon Dioxide Anion Gap BUN Creatinine Creat Clearance w eGFR POC Glucometer Random Glucose Calcium Phosphorus Magnesium Iron 54 Cancelled TIBC 303 Iron Saturation 18 Total Bilirubin AST ALT Alkaline Phosphatase Total Protein Albumin Lipase TSH Ur Specific [place] HIV 1&2 Antibody Screen HIV P24 Antigen Blood Type B POSITIVE Crossmatch See Detail Crossmatch IS Only See Detail 02/03/17 02/03/17 02/03/17 13:00 18:00 18:18 WBC RBC Hgb Hct MCV MCHC RDW Plt Count MPV Neutrophils % Lymphocytes % Monocytes % Eosinophils % Basophils % Sodium Potassium Chloride Carbon Dioxide Anion Gap BUN Creatinine Creat Clearance w eGFR POC Glucometer [phone] Random Glucose Calcium Phosphorus Magnesium Iron TIBC Iron Saturation Total Bilirubin AST ALT Alkaline Phosphatase Total Protein Albumin Lipase TSH Ur Specific [place] 1.025 HIV 1&2 Antibody Screen Negative HIV P24 Antigen Negative Blood Type Crossmatch Crossmatch IS Only 02/04/17 02/04/17 02/04/17 05:50 05:50 06:37 WBC 16.8 H D RBC 2.29 L Hgb 7.0 L D Hct 20.6 L D MCV 89.9 MCHC 34.1 RDW 15.3 Plt Count 220 MPV 9.0 Neutrophils % 81.1 Lymphocytes % 11.4 D Monocytes % 7.3 Eosinophils % 0.1 Basophils % 0.1 Sodium 139 Potassium 4.0 Chloride 106 Carbon Dioxide 26 Anion Gap 7 L BUN 3 L D Creatinine 0.4 L Creat Clearance w eGFR > 60 POC Glucometer [phone] Random Glucose 136 H Calcium 7.3 L Phosphorus 2.4 L D Magnesium 2.0 Iron TIBC Iron Saturation Total Bilirubin 0.8 AST 209 H D ALT 62 D Alkaline Phosphatase 78 D Total Protein 4.8 L Albumin 2.2 L D Lipase 410 H TSH 5.63 H Ur Specific [place] HIV 1&2 Antibody Screen HIV P24 Antigen Blood Type Crossmatch Crossmatch IS Only Active Medications Generic Name Dose Route Start Last Admin Trade Name Freq PRN Reason Stop Dose Admin Hydromorphone HCl 10 mg 02/03/17 12:39 02/03/17 14:00 Dilaudid Supervisor Cd Area - MELLOWING MACHINE OPERATOR 02/10/17 11:31 10 mg MELLOWING MACHINE OPERATOR LUCIO Administration Protocol Potassium Chloride/Dextrose/Sod Cl 1,000 mls @ 150 mls/hr 02/03/17 12:30 09:05 D5-1/2ns+20 Meq Kcl - IV 150 mls/hr ASDIR LUCIO Administration Insulin Aspart 1 vial 02/03/17 07:00 02/04/17 06:37 Novolog Vial Sliding Scale - SQ Not Given TIDAC [facility] Protocol Lorazepam 2 mg 02/03/17 05:59 Ativan Injection - IVPUSH Q2H PRN ANXIETY Morphine Sulfate 4 mg 02/03/17 06:40 02/03/17 07:56 Morphine Injection - IVPUSH 4 mg Q3H PRN Administration PAIN Ondansetron HCl 4 mg 02/03/17 03:54 Zofran Injection IVPB Q4H PRN NAUSEA AND/OR VOMITING Promethazine HCl 12.5 mg 02/03/17 11:31 Phenergan Injection - IVPB Q6H PRN NAUSEA AND/OR VOMITING Thiamine HCl 200 mg 02/03/17 10:00 02/04/17 09:37 Vitamin B1 Injection - IVPB 200 mg DAILY LUCIO Administration ASSESSMENT/PLAN: 41 yo female w hx of etoh abuse, pancreatitis, who presents to the hospital complaining of abdominal abdominal pain and found to have hemoperitoneum, ruptured spleen and pancreatitis. She had exploratory laparotomy on 02/03/17. Splenic rupture/ Hemoperitoneum s/o laparotomy POD#1 -most likely due to trauma, the pt reports that she has been lifting heavy objects at work but doesn't recall any trauma -there is also possiblility that it is caused by splenic vein thrombosis, due to pancreatitis -Monitor in ICU, f/u with surgery recommendation -NG tube on suction, draining yellow fluid, dressing aplplied on abdominal wound -MELLOWING MACHINE OPERATOR for pain control -will requite vaccination for meningococcus, haemophilus, pneumococcus and influenza, f/u with ID recommendations Microcytic anemia: -Hg this morning was 7.0, HCT 20.6 -f/u CBC -ordered another 2 units of PRBC -FU iron studies, FOBT Pancreatitis most likely related to etoh abuse CTAP shows Peripancreatic fluid and heterogeneity of the pancreas in the head uncinate and tail is noted this could represent pancreatitis. Patient reports drinking 1/2 Liter of Pitron daily Lipase elevated at admission, amylase elevated Continue IVF MELLOWING MACHINE OPERATOR Pain control GI consultation f/u Etoh abuse no signs of withdrawal Consult Adam Thomas Banana bag x 1 Thiamine IVPB until ok to have PO Prn Ativan Hyperglycemia possibly related to pancreatitis f/u A1c FEN IVF/normalized/NPO DVT prophylaxis scd Dispo-monitor in ICU Problem List - Problems (1) Alcohol dependence with uncomplicated withdrawal Code(s): F10.230 - ALCOHOL DEPENDENCE WITH WITHDRAWAL, UNCOMPLICATED (2) Pancreatitis, acute Code(s): K85.90 - ACUTE PANCREATITIS WITHOUT NECROSIS OR INFECTION, UNSP Qualifiers: Pancreatitis type: alcohol induced Acute pancreatitis complication: uninfected necrosis Qualified Code(s): K85.21 - Alcohol induced acute pancreatitis with uninfected necrosis (3) Splenic rupture Code(s): S36.09XA - OTHER INJURY OF SPLEEN, INITIAL ENCOUNTER (4) Hemoperitoneum Code(s): K66.1 - HEMOPERITONEUM Visit type - Emergency Visit Emergency Visit: Yes ED Registration Date: 02/03/17 Care time: The patient presented to the Emergency Department on the above date and was hospitalized for further evaluation of their emergent condition. - New Patient This patient is new to me today: Yes Date on this admission: 02/04/17 - Critical Care Critical Care patient: Yes Total Critical Care Time (in minutes): 50 Critical Care Statement: The care of this patient involved high complexity decision making to prevent further life threatening deterioration of the patient 's condition and/or to evalute & treat vital organ system(s) failure or risk of failure.
--- NOTE | 2017-02-04 14:34 | PN ---
Teaching Attending Note Name of Resident: Shelly Cantor ATTENDING PHYSICIAN STATEMENT I saw and evaluated the patient. I reviewed the resident's note and discussed the case with the resident. I agree with the resident's findings and plan as documented. SUBJECTIVE: Patient seen and examined in the ICU. Awake and alert. Some mild incisional discomfort. Noted anemia this AM. pRBCs ordered. No CP or SOB. Intake & Output 02/01/17 02/02/17 02/03/17 02/04/17 23:59 23:59 23:59 23:59 Intake Total 5492 1900 Output Total 1900 800 Balance 3592 1100 Weight 108 lb 107 lb 11.2 oz 117 lb 1 oz Last Vital Signs Temp Pulse Resp BP Pulse Ox 98.5 F 80 20 108/64 95 02/04/17 10:00 02/04/17 10:00 02/04/17 10:00 02/04/17 10:00 02/04/17 08:37 Active Medications Hydromorphone HCl (Dilaudid Outpatient Program Coordinator -) 10 mg WEAPONS MECHANIC WEAPONS MECHANIC [facility] PRN Reason: Protocol Stop: 02/10/17 11:31 Last Admin: 02/03/17 14:00 Dose: 10 mg Potassium Chloride/Dextrose/Sod Cl (D5-1/2ns+20 Meq Kcl -) 1,000 mls @ 150 mls/ hr IV ASDIR [facility] Last Admin: 02/04/17 09:05 Dose: 150 mls/hr Insulin Aspart (Novolog Vial Sliding Scale -) 1 vial SQ TIDAC [facility] PRN Reason: Protocol Last Admin: 02/04/17 06:37 Dose: Not Given Lorazepam (Ativan Injection -) 2 mg IVPUSH Q2H PRN PRN Reason: ANXIETY Morphine Sulfate (Morphine Injection -) 4 mg IVPUSH Q3H PRN PRN Reason: PAIN Last Admin: 02/03/17 07:56 Dose: 4 mg Ondansetron HCl (Zofran Injection) 4 mg IVPB Q4H PRN PRN Reason: NAUSEA AND/OR VOMITING Promethazine HCl (Phenergan Injection -) 12.5 mg IVPB Q6H PRN PRN Reason: NAUSEA AND/OR VOMITING Thiamine HCl (Vitamin B1 Injection -) 200 mg IVPB DAILY [facility] Last Admin: 02/04/17 09:37 Dose: 200 mg Constitutional: Yes: Awake and alert, NAD Eyes: Yes: WNL, PERRL HENT: Yes: Normocephalic Neck: Yes: Supple, Trachea Midline Cardiovascular: Yes: Regular Rate and Rhythm, Tachycardia Respiratory: Yes: Clear Gastrointestinal: Yes: Distention, Tenderness, Tenderness, Epigastrium ...Rectal Exam: Yes: Deferred Renal/: Yes: WNL Musculoskeletal: Yes: WNL Extremities: Yes: WNL Edema: No Peripheral Pulses WNL: Yes Neurological: Yes: Alert, Oriented ...Motor Strength: WNL Labs: Laboratory Results - last 24 hr 02/03/17 02/03/17 02/03/17 05:30 07:00 07:00 WBC RBC Hgb Hct MCV MCHC RDW Plt Count MPV Neutrophils % Lymphocytes % Monocytes % Eosinophils % Basophils % Sodium Potassium Chloride Carbon Dioxide Anion Gap BUN Creatinine Creat Clearance w eGFR POC Glucometer Random Glucose Calcium Phosphorus Magnesium Iron 54 Cancelled TIBC 303 Iron Saturation 18 Total Bilirubin AST ALT Alkaline Phosphatase Total Protein Albumin Lipase TSH Ur Specific [place] HIV 1&2 Antibody Screen HIV P24 Antigen Blood Type B POSITIVE Crossmatch See Detail Crossmatch IS Only See Detail 02/03/17 02/03/17 02/03/17 13:00 18:00 18:18 WBC RBC Hgb Hct MCV MCHC RDW Plt Count MPV Neutrophils % Lymphocytes % Monocytes % Eosinophils % Basophils % Sodium Potassium Chloride Carbon Dioxide Anion Gap BUN Creatinine Creat Clearance w eGFR POC Glucometer [phone] Random Glucose Calcium Phosphorus Magnesium Iron TIBC Iron Saturation Total Bilirubin AST ALT Alkaline Phosphatase Total Protein Albumin Lipase TSH Ur Specific [place] 1.025 HIV 1&2 Antibody Screen Negative HIV P24 Antigen Negative Blood Type Crossmatch Crossmatch IS Only 02/04/17 02/04/17 02/04/17 05:50 05:50 06:37 WBC 16.8 H D RBC 2.29 L Hgb 7.0 L D Hct 20.6 L D MCV 89.9 MCHC 34.1 RDW 15.3 Plt Count 220 MPV 9.0 Neutrophils % 81.1 Lymphocytes % 11.4 D Monocytes % 7.3 Eosinophils % 0.1 Basophils % 0.1 Sodium 139 Potassium 4.0 Chloride 106 Carbon Dioxide 26 Anion Gap 7 L BUN 3 L D Creatinine 0.4 L Creat Clearance w eGFR > 60 POC Glucometer [phone] Random Glucose 136 H Calcium 7.3 L Phosphorus 2.4 L D Magnesium 2.0 Iron TIBC Iron Saturation Total Bilirubin 0.8 AST 209 H D ALT 62 D Alkaline Phosphatase 78 D Total Protein 4.8 L Albumin 2.2 L D Lipase 410 H TSH 5.63 H Ur Specific [place] HIV 1&2 Antibody Screen HIV P24 Antigen Blood Type Crossmatch Crossmatch IS Only Problem List - Problems (1) Pancreatitis, acute Code(s): K85.90 - ACUTE PANCREATITIS WITHOUT NECROSIS OR INFECTION, UNSP Qualifiers: Pancreatitis type: alcohol induced Acute pancreatitis complication: uninfected necrosis Qualified Code(s): K85.21 - Alcohol induced acute pancreatitis with uninfected necrosis (2) Splenic rupture (3) S/P Laparotomy (4) ETOH abuse Assessment/Plan IVF Serial CBC and coags Normal transfusion thresholds Transfuse PRBC for hgb <7 Pain control Incentive Spirometry Strict I+O O2 to maintain saturation Dr Del Rosario Critical care time spent in reviewing chart, evaluating patient and formulating plan 35 min
--- NOTE | 2017-02-04 15:12 | CONS ---
DATE OF CONSULTATION: DATE OF DICTATION: 02/04/2017 REQUESTED BY: Hospitalist Service This is a 41-year-old woman. She is a chronic alcohol user. She last had a drink on Saturday. She developed abdominal pain and distention, presented to the emergency room, where she was found to have a ruptured spleen. She was hemodynamically unstable with a drop in her hemoglobin. She was taken emergently to the operating room on the 03 of February, the same day, and had an exploratory laparotomy, drainage of abdominal hematoma in all 4 quadrants, splenectomy, and repair of incarcerated ventral hernia. Asked to see her for recommendations for postoperative vaccines status post splenectomy. She is awake and alert. She is sitting up out of bed. She is currently resting comfortably. She has an NG tube in place and has no complaints. Her past medical history is notable for alcohol use. She had pancreatitis the 1st time about 2 years ago at [facility]. Her social history is notable for daily alcohol use. She smokes 5 to 7 cigarettes and uses marijuana. There is no history of any intravenous drug use or opioid use. She works at a [employer]. She lives with her mother; and she has 1 child, who is 23. Family history is notable for she is not aware of what happened to her father. She reports her mother is in good health. She does not have any routine medical care. Her review of systems, she denies any chest pain or any trouble breathing. She reports that she was HIV tested 2 years ago at [facility] and is HIV negative. PHYSICAL EXAMINATION: General: She is awake and alert. Vital Signs: Temperature is 98.5. Pulse is 80. Blood pressure is 108/64. Respiratory rate is 20. HEENT: She is normocephalic. Her eyes are anicteric. She has an NG tube in place. Neck: Supple. Lungs: Diminished breath sounds at the bases. Heart: Regular rate and rhythm. Abdomen: Soft. She has a vertical incision with ana rosa intact. She has diminished bowel sounds. Her abdomen is minimally distended. Extremities: Her extremities are without edema. White count is 16.8, hemoglobin is 7, and platelets are 220. BUN 3, creatinine 0.4. AST is 209, ALT is 62, alkaline phosphatase is 78. Her lipase is 410. Urinalysis is negative. She is HIV negative. In summary, this a 41-year-old woman with a history of alcohol use, admitted with a splenic laceration, status post emergent splenectomy. I spoke to her at length and counseled her about the risk of infection post splenectomy, of which she is now aware of the need to have her appropriate vaccinations, which include pneumococcal vaccine, both Prevnar and Pneumovax, meningococcal vaccines A and B, as well as Haemophilus. She also needs a prescription for Augmentin and should be instructed to take it immediately and seek medical care if she has fever. As well, she should get a medical alert bracelet. Regarding her vaccines, ideally in the setting of trauma, as they cannot be administered preoperatively as this was not elective surgery, they should be administered 14 days later, but given her youth, history of alcohol use, and the fact that she does not have an identified primary care provider, I would suggest that we wait until just prior to discharge to vaccinate her. We will need to set her up with a PMD to follow up her vaccinations, as both meningococcal A and B will require multiple doses. As well, she should have yearly influenza vaccine. She should receive Prevnar in the hospital as well as meningococcal A vaccine and Haemophilus. She should be able to receive her other vaccinations as an outpatient with her primary care doctor. If possible, we should give her a diary in order to keep track of her vaccination history. SERG YUEN M.D. [id number]
--- NOTE | 2017-02-04 15:56 | PN ---
Progress Note (short form) - Note Progress Note: surgery pt seen and examined. feels well. minimal discomfort. sitting in chair. afebrile abd- soft, nt, incision clean, u/o 1400 Laboratory Tests 02/04/ 05:50 WBC 16.8 H D Hgb 7.0 L D A/P 1) Pod#2 s/p emergent splenectomy- cont npo, cont ngt, 2) acute blood loss anemia- transfuse 2 units prbc 3) prophylaxis- hold lovenox for r.o.b., needs vaccinations, protonix, oob 4) abnormal pancreatic tail- will not be followed or evaluated by general surgery service. 5) ruptured spleen- likely traumatic. 6) leukocytosis- common after splenectomy
[2017-02-04 16:06] LABS: BASOPHIL 0.2 % (0-2.0); EOSINOPHIL 0.3 % (0-4.5); MCH 29.5 pg (25.7-33.7); MCHC 34.2 g/dl (32.0-36.0); MEAN CELL VOLUME 86.3 fl (80-96); MEAN PLT VOLUME 9.1 fl (7.5-11.1); NEUTROPHILS 81.2 % (42.8-82.8); PLATELET COUNT 208 K/MM3 (134-434); RDW 18.8 % (11.6-15.6); WHITE BLOOD COUNT 16.2 K/mm3 (4.0-10.0)
[2017-02-04] MEDS ORDERED: chlordiazePOXIDE HCL 25 MG CAPSULE PO SCH (17:00)
[2017-02-04 19:58] LABS: MCH 29.2 pg (25.7-33.7); MCHC 33.6 g/dl (32.0-36.0); MEAN CELL VOLUME 86.7 fl (80-96); MEAN PLT VOLUME 8.5 fl (7.5-11.1); PLATELET COUNT 221 K/MM3 (134-434); RDW 18.8 % (11.6-15.6); WHITE BLOOD COUNT 16.7 K/mm3 (4.0-10.0)
[2017-02-04 20:39] LABS: PLATELET ESTIMATE ADEQUATE (NORMAL)
[2017-02-04] MEDS: HYDROmorphone *PCA* 10MG/50ML DISP.SYRIN PCA SCH (20:45)
[2017-02-05] MEDS: INSULIN SLIDING SCALE (NOVOLOG) 1 VIAL SQ SCH ×3 (06:27→16:42)
[2017-02-05 08:10] LABS: TRANSFERRIN 244 mg/dL (200-370)
[2017-02-05] MEDS: THIAMINE HCL 200 MG/2 ML VIAL IVPB SCH (10:41)
--- NOTE | 2017-02-05 11:08 | PN ---
Progress Note (short form) - Note Progress Note: remains afebrile still with NGT and myles +flatus Vital Signs Period Temp Pulse Resp BP Sys/Mccann Pulse Ox Last 24 Hr 98 F-98.4 F 70-90 16-25 101-138/56-86 98-99 cor-rrr lungs clear abd soft, incision with ana rosa clean and dry ext no edema Microbiology 02/03/17 01:00 Blood - Peripheral Venous Blood Culture - Preliminary NO GROWTH OBTAINED AFTER 24 HOURS, INCUBATION TO CONTINUE FOR 4 DAYS. 02/03/17 01:00 Blood - Peripheral Venous Blood Culture - Preliminary NO GROWTH OBTAINED AFTER 24 HOURS, INCUBATION TO CONTINUE FOR 4 DAYS. 02/03/17 13:00 Urine - Urine Myles Urine Culture - Final NO GROWTH OBTAINED HIV negative a/p s/p emergency surgery for splenic rupture 02/03 history of ETOH use doing well postop oob to chair asked to see for vaccine reccd d/w patient heightened risk of infection due to splenectomy and need to seek medical care immediately if she has fever she should be discharged with a scrpit for augmentin and instructed to take it immediately and seek medical care if she has fever as well she should get a medic alert bracelet regarding vaccines - ideally should wait 14 days post splenectomy but if adherence may be an issue- would vaccinate prior to discharge for pneumococcus ( prevnar followed by pneumovax in 8 weeks) will need repeat pneumovax in 5 years Meningococcal A vaccine - 2 doses Hemophilus B will need meningococcus B vaccine as well- can be given by PMD suggest we wait until just prior to discharge to vaccinate we will need to set her up with a PMD to f/u her vaccinations (meningococcal a and b are multiple doses) as well she should have yearly influenza vaccine d/c myles
[2017-02-05] MEDS: D5-1/2NS+20 MEQ KCL - 1,000 ML IV SCH (11:53)
--- NOTE | 2017-02-05 12:16 | PN ---
Teaching Attending Note Name of Resident: Shelly Cantor ATTENDING PHYSICIAN STATEMENT I saw and evaluated the patient. I reviewed the resident's note and discussed the case with the resident. I agree with the resident's findings and plan as documented. SUBJECTIVE: Patient seen and examined in the ICU. Awake and alert. Still with some mild incisional discomfort. No CP or SOB. 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 [facility] PRN Reason: Protocol Stop: 02/10/17 11:31 Last Admin: 02/03/17 14:00 Dose: 10 mg Potassium Chloride/Dextrose/Sod Cl (D5-1/2ns+20 Meq Kcl -) 1,000 mls @ 150 mls/ hr IV ASDIR [facility] Last Admin: 02/05/17 11:53 Dose: 150 mls/hr Insulin Aspart (Novolog Vial Sliding Scale -) 1 vial SQ TIDAC [facility]UC[facility] PRN Reason: Protocol Last Admin: 02/05/17 12:06 Dose: Not Given Lorazepam (Ativan Injection -) 2 mg IVPUSH Q2H PRN PRN Reason: ANXIETY Morphine Sulfate (Morphine Injection -) 4 mg IVPUSH Q3H PRN PRN Reason: PAIN Last Admin: 02/03/17 07:56 Dose: 4 mg Ondansetron HCl (Zofran Injection) 4 mg IVPB Q4H PRN PRN Reason: NAUSEA AND/OR VOMITING Promethazine HCl (Phenergan Injection -) 12.5 mg IVPB Q6H PRN PRN Reason: NAUSEA AND/OR VOMITING Thiamine HCl (Vitamin B1 Injection -) 200 mg IVPB DAILY [facility] Last Admin: 02/05/17 10:41 Dose: 200 mg Constitutional: Yes: Awake and alert, NAD Eyes: Yes: WNL, PERRL HENT: Yes: Normocephalic Neck: Yes: Supple, Trachea Midline Cardiovascular: Yes: Regular Rate and Rhythm, Tachycardia Respiratory: Yes: Clear Gastrointestinal: Yes: Distention, Tenderness, Tenderness, Epigastrium ...Rectal Exam: Yes: Deferred Renal/: Yes: WNL Musculoskeletal: Yes: WNL Extremities: Yes: WNL Edema: No Peripheral Pulses WNL: Yes Neurological: Yes: Alert, Oriented ...Motor Strength: WNL Labs: Laboratory Results - last 24 hr 02/03/17 02/03/17 02/03/17 07:00 07:30 18:00 WBC RBC Hgb Hct MCV MCHC RDW Plt Count MPV Neutrophils % Lymphocytes % Monocytes % Eosinophils % Basophils % Differential Comment Platelet Estimate Platelet Comment RBC Morphology POC Glucometer Transferrin 244 LD Total 142 LDL 1 Fraction 22.0 LDL 2 Fraction 25.0 LDL 3 Fraction 23.0 LDL 4 Fraction 12.0 LDL 5 Fraction 18.0 Free T4 Free T3 Hepatitis A IgM Ab Negative Hep Bs Antigen Negative Hep B Core IgM Ab Negative Hepatitis C Ab (EIA) <0.1 02/04/17 02/04/17 02/04/17 06:37 11:26 11:26 WBC RBC Hgb Hct MCV MCHC RDW Plt Count MPV Neutrophils % Lymphocytes % Monocytes % Eosinophils % Basophils % Differential Comment Platelet Estimate Platelet Comment RBC Morphology POC Glucometer [phone] Transferrin LD Total LDL 1 Fraction LDL 2 Fraction LDL 3 Fraction LDL 4 Fraction LDL 5 Fraction Free T4 1.97 H Free T3 2.6 Hepatitis A IgM Ab Hep Bs Antigen Hep B Core IgM Ab Hepatitis C Ab (EIA) 02/04/17 02/04/17 02/04/17 14:18 15:00 18:23 WBC 16.2 H RBC 2.68 L Hgb 7.9 L D Hct 23.1 L MCV 86.3 MCHC 34.2 RDW 18.8 H D Plt Count 208 MPV 9.1 Neutrophils % 81.2 Lymphocytes % 10.1 Monocytes % 8.2 Eosinophils % 0.3 D Basophils % 0.2 Differential Comment Slide scanned Platelet Estimate Adequate Platelet Comment Few large plts RBC Morphology Appears normal POC Glucometer [phone] Transferrin LD Total LDL 1 Fraction LDL 2 Fraction LDL 3 Fraction LDL 4 Fraction LDL 5 Fraction Free T4 Free T3 Hepatitis A IgM Ab Hep Bs Antigen Hep B Core IgM Ab Hepatitis C Ab (EIA) 02/04/17 19:50 WBC 16.7 H RBC 2.72 L Hgb 7.9 L Hct 23.6 L MCV 86.7 MCHC 33.6 RDW 18.8 H Plt Count 221 MPV 8.5 Neutrophils % Lymphocytes % Monocytes % Eosinophils % Basophils % Differential Comment Platelet Estimate Platelet Comment RBC Morphology POC Glucometer Transferrin LD Total LDL 1 Fraction LDL 2 Fraction LDL 3 Fraction LDL 4 Fraction LDL 5 Fraction Free T4 Free T3 Hepatitis A IgM Ab Hep Bs Antigen Hep B Core IgM Ab Hepatitis C Ab (EIA) Problem List - Problems (1) Pancreatitis, acute Code(s): K85.90 - ACUTE PANCREATITIS WITHOUT NECROSIS OR INFECTION, UNSP Qualifiers: Pancreatitis type: alcohol induced Acute pancreatitis complication: uninfected necrosis Qualified Code(s): K85.21 - Alcohol induced acute pancreatitis with uninfected necrosis (2) Splenic rupture (3) S/P Laparotomy (4) ETOH abuse Assessment/Plan IVF Follow CBC Normal transfusion thresholds Pain control Incentive Spirometry Strict I+O O2 to maintain saturation D/C shar Del Rosario Critical care time spent in reviewing chart, evaluating patient and formulating plan 35 min
[2017-02-05 12:19] LABS: MCHC 34.2 g/dl (32.0-36.0); MEAN CELL VOLUME 87.8 fl (80-96); MEAN PLT VOLUME 8.2 fl (7.5-11.1); PLATELET COUNT 230 K/MM3 (134-434); RDW 19.4 % (11.6-15.6); WHITE BLOOD COUNT 18.7 K/mm3 (4.0-10.0)
[2017-02-05 12:53] LABS: ALBUMIN 2.4 g/dl (3.4-5.0); ANION GAP 10 (8-16); BILIRUBIN,TOTAL 0.7 mg/dL (0.2-1.0); CALCIUM 8.2 mg/dL (8.5-10.1); CO2 25 mmol/L (21-32); CREATININE 0.4 mg/dL (0.55-1.02); GLUCOSE,RANDOM 98 mg/dL (74-106); SGOT/AST 81 U/L (15-37); SGPT/ALT 53 U/L (12-78)
[2017-02-05 12:54] LABS: ALK PHOS 157 U/L (45-117); TOT PROT 5.6 g/dl (6.4-8.2)
--- NOTE | 2017-02-05 13:27 | PN ---
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
--- NOTE | 2017-02-05 13:47 | PN ---
Physical Exam: SUBJECTIVE: Patient seen and examined. SHe is feeling good today. She denies chest pain, SOB, nausea, vomiting. She hasn't pass flatus yet. OBJECTIVE: Vital Signs Period Temp Pulse Resp BP Sys/Mccann Pulse Ox Last 24 Hr 98 F-98.3 F 70-85 16-25 101-138/56-86 98-99 GENERAL: The patient is awake, alert, and fully oriented, in no acute distress. HEAD: Normal with no signs of trauma. EYES: extraocular movements intact, sclera anicteric, conjunctiva clear, NG tube. ENT: oropharynx clear without exudates, moist mucous membranes. NECK: Trachea midline, full range of motion, supple. LUNGS: Breath sounds equal, clear to auscultation bilaterally, no wheezes, no crackles, no accessory muscle use. HEART: Regular rate and rhythm, S1, S2 without murmur, rub or gallop. ABDOMEN: Soft, nontender, nondistended, hypoactive bowel sounds, no guarding, no rebound, dressing applied to the wound on abdomen. EXTREMITIES: 2+ pulses, warm, well-perfused, no edema. NEUROLOGICAL: No facial asymmetry. Normal speech, gait not observed. PSYCH: Normal mood, normal affect. SKIN: Warm, dry, normal turgor, no rashes. Central line was removed today. Laboratory Results - last 24 hr 02/03/17 02/03/17 02/03/17 07:00 07:30 18:00 WBC RBC Hgb Hct MCV MCHC RDW Plt Count MPV Neutrophils % Lymphocytes % Monocytes % Eosinophils % Basophils % Differential Comment Platelet Estimate Platelet Comment RBC Morphology Sodium Potassium Chloride Carbon Dioxide Anion Gap BUN Creatinine Creat Clearance w eGFR POC Glucometer Random Glucose Calcium Transferrin 244 Total Bilirubin AST ALT Alkaline Phosphatase LD Total 142 Total Protein Albumin LDL 1 Fraction 22.0 LDL 2 Fraction 25.0 LDL 3 Fraction 23.0 LDL 4 Fraction 12.0 LDL 5 Fraction 18.0 Free T4 Free T3 Hepatitis A IgM Ab Negative Hep Bs Antigen Negative Hep B Core IgM Ab Negative Hepatitis C Ab (EIA) <0.1 02/04/17 02/04/17 02/04/17 11:26 11:26 14:18 WBC RBC Hgb Hct MCV MCHC RDW Plt Count MPV Neutrophils % Lymphocytes % Monocytes % Eosinophils % Basophils % Differential Comment Platelet Estimate Platelet Comment RBC Morphology Sodium Potassium Chloride Carbon Dioxide Anion Gap BUN Creatinine Creat Clearance w eGFR POC Glucometer [phone] Random Glucose Calcium Transferrin Total Bilirubin AST ALT Alkaline Phosphatase LD Total Total Protein Albumin LDL 1 Fraction LDL 2 Fraction LDL 3 Fraction LDL 4 Fraction LDL 5 Fraction Free T4 1.97 H Free T3 2.6 Hepatitis A IgM Ab Hep Bs Antigen Hep B Core IgM Ab Hepatitis C Ab (EIA) 02/04/17 02/04/17 02/04/17 15:00 18:23 19:50 WBC 16.2 H 16.7 H RBC 2.68 L 2.72 L Hgb 7.9 L D 7.9 L Hct 23.1 L 23.6 L MCV 86.3 86.7 MCHC 34.2 33.6 RDW 18.8 H D 18.8 H Plt Count 208 221 MPV 9.1 8.5 Neutrophils % 81.2 Lymphocytes % 10.1 Monocytes % 8.2 Eosinophils % 0.3 D Basophils % 0.2 Differential Comment Slide scanned Platelet Estimate Adequate Platelet Comment Few large plts RBC Morphology Appears normal Sodium Potassium Chloride Carbon Dioxide Anion Gap BUN Creatinine Creat Clearance w eGFR POC Glucometer [phone] Random Glucose Calcium Transferrin Total Bilirubin AST ALT Alkaline Phosphatase LD Total Total Protein Albumin LDL 1 Fraction LDL 2 Fraction LDL 3 Fraction LDL 4 Fraction LDL 5 Fraction Free T4 Free T3 Hepatitis A IgM Ab Hep Bs Antigen Hep B Core IgM Ab Hepatitis C Ab (EIA) 02/05/17 02/05/17 12:05 12:05 WBC 18.7 H RBC 2.93 L Hgb 8.8 L D Hct 25.7 L MCV 87.8 MCHC 34.2 RDW 19.4 H Plt Count 230 MPV 8.2 Neutrophils % Lymphocytes % Monocytes % Eosinophils % Basophils % Differential Comment Platelet Estimate Platelet Comment RBC Morphology Sodium 138 Potassium 4.1 Chloride 103 Carbon Dioxide 25 Anion Gap 10 BUN 2 L* D Creatinine 0.4 L Creat Clearance w eGFR > 60 POC Glucometer Random Glucose 98 D Calcium 8.2 L Transferrin Total Bilirubin 0.7 AST 81 H D ALT 53 Alkaline Phosphatase 157 H D LD Total Total Protein 5.6 L Albumin 2.4 L LDL 1 Fraction LDL 2 Fraction LDL 3 Fraction LDL 4 Fraction LDL 5 Fraction Free T4 Free T3 Hepatitis A IgM Ab Hep Bs Antigen Hep B Core IgM Ab Hepatitis C Ab (EIA) Active Medications Generic Name Dose Route Start Last Admin Trade Name Freq PRN Reason Stop Dose Admin Hydromorphone HCl 10 mg 02/03/17 12:39 02/03/17 14:00 Dilaudid Rn Supplemental - SHOTGUN SHELL ASSEMBLY MACHINE OPERATOR 02/10/17 11:31 10 mg SHOTGUN SHELL ASSEMBLY MACHINE OPERATOR LUCIO Administration Protocol Potassium Chloride/Dextrose/Sod Cl 1,000 mls @ 150 mls/hr 02/03/17 12:30 11:53 D5-1/2ns+20 Meq Kcl - IV 150 mls/hr ASDIR [facility]UCIO Administration Insulin Aspart 1 vial 02/03/17 07:00 02/05/17 12:06 Novolog Vial Sliding Scale - SQ Not Given TIDAC [facility] Protocol Lorazepam 2 mg 02/03/17 05:59 Ativan Injection - IVPUSH Q2H PRN ANXIETY Morphine Sulfate 4 mg 02/03/17 06:40 02/03/17 07:56 Morphine Injection - IVPUSH 4 mg Q3H PRN Administration PAIN Ondansetron HCl 4 mg 02/03/17 03:54 Zofran Injection IVPB Q4H PRN NAUSEA AND/OR VOMITING Promethazine HCl 12.5 mg 02/03/17 11:31 Phenergan Injection - IVPB Q6H PRN NAUSEA AND/OR VOMITING Thiamine HCl 200 mg 02/03/17 10:00 02/05/17 10:41 Vitamin B1 Injection - IVPB 200 mg DAILY [facility]IO Administration ASSESSMENT/PLAN: 41 yo female w hx of etoh abuse, pancreatitis, who presents to the hospital complaining of abdominal abdominal pain and found to have hemoperitoneum, ruptured spleen and pancreatitis. She had exploratory laparotomy on 02/03/17. 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 Patient reports drinking 1/2 Liter of Pitron daily Lipase elevated at admission, amylase elevated Continue IVF SHOTGUN SHELL ASSEMBLY MACHINE OPERATOR Pain control GI consultation f/u BUN low may indicate low protein diet or liver disease Etoh abuse no signs of withdrawal Consult Adam Thomas Banana bag x 1 Thiamine IVPB until ok to have PO Prn Ativan Hyperglycemia possibly related to pancreatitis f/u A1c FEN IVF/normalized/NPO DVT prophylaxis scd Dispo-monitor in ICU Problem List - Problems (1) Alcohol dependence with uncomplicated withdrawal Code(s): F10.230 - ALCOHOL DEPENDENCE WITH WITHDRAWAL, UNCOMPLICATED (2) Pancreatitis, acute Code(s): K85.90 - ACUTE PANCREATITIS WITHOUT NECROSIS OR INFECTION, UNSP Qualifiers: Pancreatitis type: alcohol induced Acute pancreatitis complication: uninfected necrosis Qualified Code(s): K85.21 - Alcohol induced acute pancreatitis with uninfected necrosis (3) Splenic rupture Code(s): S36.09XA - OTHER INJURY OF SPLEEN, INITIAL ENCOUNTER (4) Hemoperitoneum Code(s): K66.1 - HEMOPERITONEUM Visit type - Emergency Visit Emergency Visit: Yes ED Registration Date: 02/03/17 Care time: The patient presented to the Emergency Department on the above date and was hospitalized for further evaluation of their emergent condition. - New Patient This patient is new to me today: No - Critical Care Critical Care patient: Yes Total Critical Care Time (in minutes): 50 Critical Care Statement: The care of this patient involved high complexity decision making to prevent further life threatening deterioration of the patient 's condition and/or to evalute & treat vital organ system(s) failure or risk of failure.
--- NOTE | 2017-02-05 14:05 | PN ---
Physical Exam: SUBJECTIVE: Patient seen and examined in ICU. She is feeling well, sat in chair yesterday, willing again today. Denies flatus Events: - Transfused 1uprbc yesterday - Discontinue myles today OBJECTIVE: Vital Signs Period Temp Pulse Resp BP Sys/Mccann Pulse Ox Last 24 Hr 98 F-98.3 F 70-85 16-25 101-138/56-86 98-99 PE Neuro: alert, awake, cn 2-12intact HEENT: R IJ CDI, + NGT, + mild exophthalmos Pulm: CTAB CV: s1 s2 rrr no mrg Abd: mid line ana rosa, drg CDI, +BS : Myles Ext: warm, no le edema Lines: - Right TLC- removed today - Left A line- removed 02/04 CBCD WBC 18.7 K/mm3 (4.0-10.0) H 02/05/17 12:05 RBC 2.93 M/mm3 (3.60-5.2) L 02/05/17 12:05 Hgb 8.8 GM/dL (10.7-15.3) L D 02/05/17 12:05 Hct 25.7 % (32.4-45.2) L 02/05/17 12:05 MCV 87.8 fl (80-96) 02/05/17 12:05 MCHC 34.2 g/dl (32.0-36.0) 02/05/17 12:05 RDW 19.4 % (11.6-15.6) H 02/05/17 12:05 Plt Count 230 K/MM3 (134-434) 02/05/17 12:05 MPV 8.2 fl (7.5-11.1) 02/05/17 12:05 CMP Sodium 138 mmol/L (136-145) 02/05/17 12:05 Potassium 4.1 mmol/L (3.5-5.1) 02/05/17 12:05 Chloride 103 mmol/L (98-107) 02/05/17 12:05 Carbon Dioxide 25 mmol/L (21-32) 02/05/17 12:05 Anion Gap 10 (8-16) 02/05/17 12:05 BUN 2 mg/dL (7-18) L* D 02/05/17 12:05 Creatinine 0.4 mg/dL (0.55-1.02) L 02/05/17 12:05 Creat Clearance w eGFR > 60 (>60) 02/05/17 12:05 Calcium 8.2 mg/dL (8.5-10.1) L 02/05/17 12:05 Total Bilirubin 0.7 mg/dL (0.2-1.0) 02/05/17 12:05 AST 81 U/L (15-37) H D 02/05/17 12:05 ALT 53 U/L (12-78) 02/05/17 12:05 Alkaline Phosphatase 157 U/L (45-117) H D 02/05/17 12:05 Total Protein 5.6 g/dl (6.4-8.2) L 02/05/17 12:05 Albumin 2.4 g/dl (3.4-5.0) L 02/05/17 12:05 02/03/17 02/03/17 02/03/17 07:30 08:00 18:00 Hemoglobin A1c % Pending Free T4 Free T3 Hepatitis A IgM Ab Negative Hep Bs Antigen Negative Hep B Core IgM Ab Negative Hepatitis C Ab (EIA) <0.1 Monoscreen Negative HIV 1&2 Antibody Screen HIV P24 Antigen 02/03/17 02/04/17 02/04/17 18:00 11:26 11:26 Hemoglobin A1c % Free T4 1.97 H Free T3 2.6 Hepatitis A IgM Ab Hep Bs Antigen Hep B Core IgM Ab Hepatitis C Ab (EIA) Monoscreen HIV 1&2 Antibody Screen Negative HIV P24 Antigen Negative Active Medications Generic Name Dose Route Start Last Admin Trade Name Ramosq PRN Reason Stop Dose Admin Hydromorphone HCl 10 mg 02/03/17 12:39 02/03/17 14:00 Dilaudid Acquisitions Librarian - WIRE MILL ROVER 02/10/17 11:31 10 mg WIRE MILL ROVER LUCIO Administration Protocol Potassium Chloride/Dextrose/Sod Cl 1,000 mls @ 150 mls/hr 02/03/17 12:30 11:53 D5-1/2ns+20 Meq Kcl - IV 150 mls/hr ASDIR L[facility]IO Administration Insulin Aspart 1 vial 02/03/17 07:00 02/05/17 12:06 Novolog Vial Sliding Scale - SQ Not Given TIDAC LUCIO Protocol Lorazepam 2 mg 02/03/17 05:59 Ativan Injection - IVPUSH Q2H PRN ANXIETY Morphine Sulfate 4 mg 02/03/17 06:40 02/03/17 07:56 Morphine Injection - IVPUSH 4 mg Q3H PRN Administration PAIN Ondansetron HCl 4 mg 02/03/17 03:54 Zofran Injection IVPB Q4H PRN NAUSEA AND/OR VOMITING Promethazine HCl 12.5 mg 02/03/17 11:31 Phenergan Injection - IVPB Q6H PRN NAUSEA AND/OR VOMITING Thiamine HCl 200 mg 02/03/17 10:00 02/05/17 10:41 Vitamin B1 Injection - IVPB 200 mg DAILY LUCIO Administration Assessment: 41 year old female with hx of ETOH abuse, pancreatitis admitted with x2 days of of acute abdominal pain and bloating, dark stools, nausea, bilious emesis and non bloody diarrhea. Last drink was Thursday 02/01. Plan: 1. Acute splenic rupture/Hemoperitoneum - Due to trauma - s/p Splenectomy 02/03 - Transfused 1uprbc with appropriate rise - Maintain WIRE MILL ROVER while NGT in - ID input appreciated, defer vaccinations until prior to discharge - HIV/hep panel negative - NPO 2. Acute pancreatitis - Improved, likely from splenic rupture/etoh abuse - IVF: d5 09/03 ns 20meq @150cc/hr 3. Abnormal pancreatic tail - Will need GI follow up contrast imaging of her pancreas as outpt once stable 4. Acute blood loss anemia - Due to blunt trauma - Transfused 5uprbc, 2 units FFP, 1uplts - Iron studies stable - Hgb stable 5. Secondary hypothyroidism - Will need to repeat TSH or 6. ETOH abuse - No acute withdrawal issues - Thiamine daily injections 7. PPx - DVT: SCDs, hold Lovenox - Nutrition: NPO Visit type - Emergency Visit Emergency Visit: Yes ED Registration Date: 02/03/17 Care time: The patient presented to the Emergency Department on the above date and was hospitalized for further evaluation of their emergent condition. - New Patient This patient is new to me today: No - Critical Care Critical Care patient: No
--- NOTE | 2017-02-05 16:31 | PN ---
Progress Note (short form) - Note Progress Note: surgery pt seen and examined. feels well. bm and flatus. afebrile abd- soft, nt, incision clean, ngt 100 Laboratory Tests 02/05/17 12:05 WBC 18.7 H Hgb 8.8 L D A/P 1) Pod#3 s/p emergent splenectomy- remove ngt, full liquids, stable for transfer to medical floor 2) acute blood loss anemia- stable, can start prophylactic lovenox in am 3) prophylaxis- hold lovenox for r.o.b. till am, vaccinations per id, protonix , oob 4) abnormal pancreatic tail- will not be followed or evaluated by general surgery service. this could be a malignancy. pt understands. will have outpt w /u per medical team. 5) ruptured spleen- likely traumatic. 6) leukocytosis- common after splenectomy
[2017-02-05] MEDS ORDERED: D5-1/2NS+20 MEQ KCL - 1,000 ML IV SCH (16:32)
[2017-02-05] MEDS ORDERED: chlordiazePOXIDE 5 MG CAPSULE PO SCH (17:00)
[2017-02-05] MEDS: HYDROmorphone HCL CARPU-JECT 1 MG/1 ML DISP.SYRIN IVPB PRN (20:30)
[2017-02-06] MEDS: HYDROmorphone HCL CARPU-JECT 1 MG/1 ML DISP.SYRIN IVPB PRN (02:10)
[2017-02-06 06:17] LABS: MCH 29.3 pg (25.7-33.7); MCHC 32.7 g/dl (32.0-36.0); MEAN CELL VOLUME 89.8 fl (80-96); MEAN PLT VOLUME 8.7 fl (7.5-11.1); PLATELET COUNT 331 K/MM3 (134-434); WHITE BLOOD COUNT 16.6 K/mm3 (4.0-10.0)
[2017-02-06] MEDS: INSULIN SLIDING SCALE (NOVOLOG) 1 VIAL SQ SCH ×3 (06:40→16:51)
[2017-02-06 06:45] LABS: ALBUMIN 2.7 g/dl (3.4-5.0); ANION GAP 11 (8-16); CALCIUM 8.9 mg/dL (8.5-10.1); CO2 25 mmol/L (21-32); COCKROFT - GAULT 121.7115; CREATININE 0.5 mg/dL (0.55-1.02); GLUCOSE,RANDOM 108 mg/dL (74-106); SGOT/AST 209 U/L (15-37); SGPT/ALT 103 U/L (12-78)
[2017-02-06 06:48] LABS: ALK PHOS 220 U/L (45-117); BILIRUBIN,TOTAL 0.8 mg/dL (0.2-1.0); TOT PROT 6.2 g/dl (6.4-8.2)
--- NOTE | 2017-02-06 07:34 | PN ---
Progress Note, Physician Chief Complaint: ID Post op day 4 splenectomy ( traumatic ?) evacuation of hematoma Alert NAD - Current Medication List Current Medications: Active Medications Enoxaparin Sodium (Lovenox -) 40 mg SQ DAILY [facility] Hydromorphone HCl (Dilaudid Injection -) 0.5 mg IVPB Q4H PRN PRN Reason: PAIN Last Admin: 02/06/17 02:10 Dose: 0.5 mg Potassium Chloride/Dextrose/Sod Cl (D5-1/2ns+20 Meq Kcl -) 1,000 mls @ 150 mls/ hr IV ASDIR [facility] Last Admin: 02/05/17 17:16 Dose: 150 mls/hr Insulin Aspart (Novolog Vial Sliding Scale -) 1 vial SQ TIDAC LUCIO PRN Reason: Protocol Last Admin: 02/06/17 06:40 Dose: Not Given Lorazepam (Ativan Injection -) 2 mg IVPUSH Q2H PRN PRN Reason: ANXIETY Ondansetron HCl (Zofran Injection) 4 mg IVPB Q4H PRN PRN Reason: NAUSEA AND/OR VOMITING Promethazine HCl (Phenergan Injection -) 12.5 mg IVPB Q6H PRN PRN Reason: NAUSEA AND/OR VOMITING Thiamine HCl (Vitamin B1 Injection -) 200 mg IVPB DAILY [facility] Last Admin: 02/05/17 10:41 Dose: 200 mg - Objective Vital Signs: Vital Signs Temperature 99 F 02/06/17 06:00 Pulse Rate 70 02/06/17 06:00 Respiratory Rate 16 02/06/17 06:00 Blood Pressure 124/82 02/06/17 06:00 O2 Sat by Pulse Oximetry (%) 99 02/05/17 19:47 Constitutional: Yes: Thin Neck: Yes: WNL, Supple Cardiovascular: Yes: Regular Rate and Rhythm, S1, S2. No: Murmur Respiratory: Yes: WNL, Regular, CTA Bilaterally, Diminished Gastrointestinal: Yes: WNL, Normal Bowel Sounds, Soft, Other (Incision clean) Labs: CBC, BMP 02/06/17 05:15 02/06/17 05:15 Assessment/Plan Laboratory Tests 02/06/17 02/06/17 05:15 05:15 WBC 16.6 H Hgb 9.0 L Hct 27.5 L Plt Count 331 D BUN 2 L* Creatinine 0.5 L D AST 209 H D ALT 103 H D Assessment Post splenectomy recovering well Plan Continue current post op care Check INR ? coagulopathy Vaccinations as outlined Alcohol Recovery discharge planning Kindly recall as needed Dimitry ARREOLA
--- NOTE | 2017-02-06 09:32 | PN ---
Physical Exam: SUBJECTIVE: Patient seen and examined. She is feeling better today., had multiple bowel movements overnight. She denies abdominal pain, SOB, dizziness, headache, fever, chills. OBJECTIVE: Vital Signs Period Temp Pulse Resp BP Sys/Mccann Pulse Ox Last 24 Hr 98.3 F-99.2 F 69-86 15-24 105-138/65-87 99 GENERAL: The patient is awake, alert, and fully oriented, in no acute distress. HEAD: Normal with no signs of trauma. EYES: extraocular movements intact, sclera anicteric, conjunctiva clear. ENT: oropharynx clear without exudates, moist mucous membranes. NECK: Trachea midline, full range of motion, supple. LUNGS: Breath sounds equal, clear to auscultation bilaterally, no wheezes, no crackles, no accessory muscle use. HEART: Regular rate and rhythm, S1, S2 without murmur, rub or gallop. ABDOMEN: Soft, nontender, nondistended, normoactive bowel sounds, no guarding, no rebound, healing wound with sutures on abdomen. EXTREMITIES: 2+ pulses, warm, well-perfused, no edema. NEUROLOGICAL: No facial asymmetry. Normal speech, gait not observed. PSYCH: Normal mood, normal affect. SKIN: Warm, dry, normal turgor, no rashes. Central line was removed today. Laboratory Results - last 24 hr 02/03/17 02/05/17 02/05/17 05:30 06:09 11:58 WBC RBC Hgb Hct MCV MCHC RDW Plt Count MPV Sodium Potassium Chloride Carbon Dioxide Anion Gap BUN Creatinine Creat Clearance w eGFR POC Glucometer [phone] Random Glucose Calcium Total Bilirubin AST ALT Alkaline Phosphatase Total Protein Albumin Blood Type B POSITIVE Crossmatch See Detail Crossmatch IS Only See Detail 02/05/17 02/05/17 02/05/17 12:05 12:05 16:32 WBC 18.7 H RBC 2.93 L Hgb 8.8 L D Hct 25.7 L MCV 87.8 MCHC 34.2 RDW 19.4 H Plt Count 230 MPV 8.2 Sodium 138 Potassium 4.1 Chloride 103 Carbon Dioxide 25 Anion Gap 10 BUN 2 L* D Creatinine 0.4 L Creat Clearance w eGFR > 60 POC Glucometer [phone] Random Glucose 98 D Calcium 8.2 L Total Bilirubin 0.7 AST 81 H D ALT 53 Alkaline Phosphatase 157 H D Total Protein 5.6 L Albumin 2.4 L Blood Type Crossmatch Crossmatch IS Only 02/06/17 02/06/17 02/06/17 05:15 05:15 06:30 WBC 16.6 H RBC 3.06 L Hgb 9.0 L Hct 27.5 L MCV 89.8 MCHC 32.7 RDW 19.0 H Plt Count 331 D MPV 8.7 Sodium 139 Potassium 3.8 Chloride 103 Carbon Dioxide 25 Anion Gap 11 BUN 2 L* Creatinine 0.5 L D Creat Clearance w eGFR > 60 POC Glucometer [phone] Random Glucose 108 H Calcium 8.9 Total Bilirubin 0.8 AST 209 H D ALT 103 H D Alkaline Phosphatase 220 H D Total Protein 6.2 L Albumin 2.7 L Blood Type Crossmatch Crossmatch IS Only Active Medications Generic Name Dose Route Start Last Admin Trade Name Freq PRN Reason Stop Dose Admin Enoxaparin Sodium 40 mg 02/06/17 10:00 Lovenox - SQ DAILY LUCIO Hydromorphone HCl 0.5 mg 02/05/17 16:26 02/06/17 02:10 Dilaudid Injection - IVPB 0.5 mg Q4H PRN Administration PAIN Potassium Chloride/Dextrose/Sod Cl 1,000 mls @ 150 mls/hr 02/05/17 16:32 17:16 D5-1/2ns+20 Meq Kcl - IV 150 mls/hr ASDIR LUCIO Administration Insulin Aspart 1 vial 02/03/17 07:00 02/06/17 06:40 Novolog Vial Sliding Scale - SQ Not Given TIDAC [facility] Protocol Lorazepam 2 mg 02/03/17 05:59 Ativan Injection - IVPUSH Q2H PRN ANXIETY Ondansetron HCl 4 mg 02/03/17 03:54 Zofran Injection IVPB Q4H PRN NAUSEA AND/OR VOMITING Promethazine HCl 12.5 mg 02/03/17 11:31 Phenergan Injection - IVPB Q6H PRN NAUSEA AND/OR VOMITING Thiamine HCl 200 mg 02/03/17 10:00 02/05/17 10:41 Vitamin B1 Injection - IVPB 200 mg DAILY LUCIO Administration ASSESSMENT/PLAN: 41 yo female w hx of etoh abuse, pancreatitis, who presents to the hospital complaining of abdominal abdominal pain and found to have hemoperitoneum, ruptured spleen and pancreatitis. She had exploratory laparotomy on 02/03/17. Splenic rupture/ Hemoperitoneum s/o laparotomy POD#2 -most likely due to trauma, the pt reports that she has been lifting heavy objects at work but doesn't recall any trauma -there is also possiblility that it is caused by splenic vein thrombosis, due to pancreatitis -Monitor in ICU, f/u with surgery recommendation -she had multiple BMs, passing gas, started on full liquid diet -Dilaulid for pain control when requested -will requite vaccination for meningococcus, haemophilus, pneumococcus and influenza before leaving the hospital and f/u with -PCP as outpatient -will check coags Transaminitis: -today's AST and ALT are elevated -BUN low -will monitor and US tomorrow if still elevated -will check lipid panel Microcytic anemia: -Hg stable -iron studies nl, FOBT Hypothyroidism: -elevated TSH 5.63 and free T4 1.97 Pancreatitis most likely related to etoh abuse CTAP shows Peripancreatic fluid and heterogeneity of the pancreas in the head uncinate and tail is noted this could represent pancreatitis. Patient reports drinking 1/2 Liter of Pitron daily Lipase elevated at admission, amylase elevated GI consultation f/u BUN low may indicate low protein diet or liver disease Etoh abuse no signs of withdrawal Consult Adam Thomas Banana bag x 1 Thiamine IVPB until ok to have PO Prn Ativan Hyperglycemia possibly related to pancreatitis f/u A1c FEN IVF/normalized/clear liquid DVT prophylaxis scd Dispo-monitor in ICU Problem List - Problems (1) Alcohol dependence with uncomplicated withdrawal Code(s): F10.230 - ALCOHOL DEPENDENCE WITH WITHDRAWAL, UNCOMPLICATED (2) Pancreatitis, acute Code(s): K85.90 - ACUTE PANCREATITIS WITHOUT NECROSIS OR INFECTION, UNSP Qualifiers: Pancreatitis type: alcohol induced Acute pancreatitis complication: uninfected necrosis Qualified Code(s): K85.21 - Alcohol induced acute pancreatitis with uninfected necrosis (3) Splenic rupture Code(s): S36.09XA - OTHER INJURY OF SPLEEN, INITIAL ENCOUNTER (4) Hemoperitoneum Code(s): K66.1 - HEMOPERITONEUM Visit type - Emergency Visit Emergency Visit: Yes ED Registration Date: 02/03/17 Care time: The patient presented to the Emergency Department on the above date and was hospitalized for further evaluation of their emergent condition. - New Patient This patient is new to me today: No - Critical Care Critical Care patient: Yes Total Critical Care Time (in minutes): 45 Critical Care Statement: The care of this patient involved high complexity decision making to prevent further life threatening deterioration of the patient 's condition and/or to evalute & treat vital organ system(s) failure or risk of failure.
[2017-02-06] MEDS: THIAMINE HCL 200 MG/2 ML VIAL IVPB SCH (09:55)
[2017-02-06 10:30] LABS: CHOLESTEROL 111 mg/dL (50-200)
[2017-02-06 10:37] LABS: LDL CHOLESTEROL (ONLY SJRH) 40 mg/dL (5-100)
[2017-02-06 10:40] LABS: INR 1.06 (0.82-1.09); PROTHROMBIN TIME (PATIENT) 11.7 SEC (9.98-11.88)
--- NOTE | 2017-02-06 10:41 | PN ---
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 Criselda Corral MD.
[2017-02-06 10:43] LABS: ACTIVATED PTT 31.3 SECONDS (26.9-34.4)
--- NOTE | 2017-02-06 11:40 | PN ---
Physical Exam: SUBJECTIVE: Patient seen and examined. She is passing gas and tolerating full liquids. Discussed at length need to abstain from Etoh and rehab. 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0) 02/06/17 05:15 RDW 19.0 % (11.6-15.6) H 02/06/17 05:15 Plt Count 331 K/MM3 (134-434) D 02/06/17 05:15 MPV 8.7 fl (7.5-11.1) 02/06/17 05:15 CMP Sodium 139 mmol/L (136-145) 02/06/17 05:15 Potassium 3.8 mmol/L (3.5-5.1) 02/06/17 05:15 Chloride 103 mmol/L (98-107) 02/06/17 05:15 Carbon Dioxide 25 mmol/L (21-32) 02/06/17 05:15 Anion Gap 11 (8-16) 02/06/17 05:15 BUN 2 mg/dL (7-18) L* 02/06/17 05:15 Creatinine 0.5 mg/dL (0.55-1.02) L D 02/06/17 05:15 Creat Clearance w eGFR > 60 (>60) 02/06/17 05:15 Calcium 8.9 mg/dL (8.5-10.1) 02/06/17 05:15 Total Bilirubin 0.8 mg/dL (0.2-1.0) 02/06/17 05:15 AST 209 U/L (15-37) H D 02/06/17 05:15 ALT 103 U/L (12-78) H D 02/06/17 05:15 Alkaline Phosphatase 220 U/L (45-117) H D 02/06/17 05:15 Total Protein 6.2 g/dl (6.4-8.2) L 02/06/17 05:15 Albumin 2.7 g/dl (3.4-5.0) L 02/06/17 05:15 02/06/17 02/06/17 09:35 09:35 INR 1.06 PTT (Actin FS) 31.3 Triglycerides 66 Cholesterol 111 Total LDL Cholesterol 40 HDL Cholesterol 55 Active Medications Generic Name Dose Route Start Last Admin Trade Name Freq PRN Reason Stop Dose Admin Enoxaparin Sodium 40 mg 02/06/17 10:00 Lovenox - SQ DAILY [facility] Insulin Aspart 1 vial 02/03/17 07:00 02/06/17 06:40 Novolog Vial Sliding Scale - SQ Not Given TIDAC [facility] Protocol Lorazepam 2 mg 02/03/17 05:59 Ativan Injection - IVPUSH Q2H PRN ANXIETY Ondansetron HCl 4 mg 02/03/17 03:54 Zofran Injection IVPB Q4H PRN NAUSEA AND/OR VOMITING Promethazine HCl 12.5 mg 02/03/17 11:31 Phenergan Injection - IVPB Q6H PRN NAUSEA AND/OR VOMITING Thiamine HCl 200 mg 02/03/17 10:00 02/06/17 09:55 Vitamin B1 Injection - IVPB 200 mg DAILY [facility] Administration Assessment: 41 year old female with hx of ETOH abuse, pancreatitis admitted with x2 days of of acute abdominal pain and bloating, dark stools, nausea, bilious emesis and non bloody diarrhea. Last drink was Thursday 02/01. Plan: 1. Acute traumatic splenic rupture/Hemoperitoneum - s/p Splenectomy 02/03 - Refer to ID note (02/05/17) for vaccinations to give prior to discharge - Full liquids 2. Transaminitis - Recall GI - Coags wnl 3. Acute pancreatitis - Improved, likely from splenic rupture/etoh abuse - Stop fluids 4. Abnormal pancreatic tail - Will need GI follow up contrast imaging of her pancreas as outpt once stable 5. Acute blood loss anemia - Due to blunt trauma - Transfused 5uprbc, 2 units FFP, 1uplts in total - Iron studies stable - Hgb stable 6. Secondary hyperthyroidism - Will need to repeat TSH if still high will need to check: - ACTH, FSH, LH, grown hormone and check brain MRI pituitary 7. ETOH abuse - No acute withdrawal issues - Thiamine daily injections 8. Malnutrition - Low BUN - Will trend 9. PPx - DVT: Start lovenox daily, PT daily Visit type - Emergency Visit Emergency Visit: Yes ED Registration Date: 02/03/17 Care time: The patient presented to the Emergency Department on the above date and was hospitalized for further evaluation of their emergent condition. - New Patient This patient is new to me today: No - Critical Care Critical Care patient: No
[2017-02-06] MEDS: ENOXAPARIN NA (PORCINE) 40 MG/0.4 ML DISP.SYRIN SQ SCH (11:41)
--- NOTE | 2017-02-06 12:09 | PN ---
Teaching Attending Note Name of Resident: Shelly Cantor ATTENDING PHYSICIAN STATEMENT I saw and evaluated the patient. I reviewed the resident's note and discussed the case with the resident. I agree with the resident's findings and plan as documented. SUBJECTIVE: Pt seen and examined in the ICU. Pain controlled with current regimen. No shortness of breath or chest pain. No fevers or chills. OBJECTIVE: Last Vital Signs Temp Pulse Resp BP Pulse Ox 99 F 70 16 110/66 97 02/06/17 10:00 02/06/17 10:00 02/06/17 10:00 02/06/17 10:00 02/06/17 09:00 Intake & Output 02/03/17 02/04/17 02/05/17 02/06/17 23:59 23:59 23:59 23:59 Intake Total 5492 4100 1350 1900 Output Total 1900 1700 2800 Balance 3592 2400 -1450 1900 Weight 107 lb 11.2 oz 117 lb 1 oz 119 lb 114 lb 12.8 oz Gen: NAD at rest Heart: RRR Lung: decreased breath sounds at the bases Abd: soft, incision clean Ext: no edema CBC, BMP 02/06/17 05:15 02/06/17 05:15 Hepatic Panel Total Bilirubin 0.8 mg/dL (0.2-1.0) 02/06/17 05:15 AST 209 U/L (15-37) H D 02/06/17 05:15 ALT 103 U/L (12-78) H D 02/06/17 05:15 Alkaline Phosphatase 220 U/L (45-117) H D 02/06/17 05:15 Albumin 2.7 g/dl (3.4-5.0) L 02/06/17 05:15 Active Medications Enoxaparin Sodium (Lovenox -) 40 mg SQ DAILY LUCIO Last Admin: 02/06/17 11:41 Dose: 40 mg Insulin Aspart (Novolog Vial Sliding Scale -) 1 vial SQ TIDAC LUCIO PRN Reason: Protocol Last Admin: 02/06/17 06:40 Dose: Not Given Lorazepam (Ativan Injection -) 2 mg IVPUSH Q2H PRN PRN Reason: ANXIETY Ondansetron HCl (Zofran Injection) 4 mg IVPB Q4H PRN PRN Reason: NAUSEA AND/OR VOMITING Promethazine HCl (Phenergan Injection -) 12.5 mg IVPB Q6H PRN PRN Reason: NAUSEA AND/OR VOMITING Thiamine HCl (Vitamin B1 Injection -) 200 mg IVPB DAILY LUCIO Last Admin: 02/06/17 09:55 Dose: 200 mg ASSESSMENT AND PLAN: Ruptured Spleen s/p ex-lap/splenectomy/hematoma evacuation Pancreatic Mass Acute Blood Loss Anemia Alcohol Abuse Elevated LFTs - monitor H/H - pain control - incentive spirometry - vaccinations prior to discharge - PO as tolerated - DVT prophylaxis - can monitor on surgical floor
--- NOTE | 2017-02-06 15:15 | PATH ---
Surgical Pathology Report Patient Name: NII QUINTERO [facility]. Rec. 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 PORTION OF REMAINING SPLEEN: CLOTTED BLOOD. B. PORTION OF REMAINING SPLEEN: PORTIONS OF RUPTURED SPLEEN WITH EXTENSIVE HEMORRHAGE. NO MALIGNANCY IDENTIFIED. Electronically Signed Linus Nelson M.D. Gross Description A. Received in formalin labeled "portion of remaining spleen" is a 549 g, 25.5 x 20.0 x 2.5 cm aggregate of red-brown, fragmented possible soft tissue admixed with abundant blood clot. Correctional Probation Officer sections are submitted in 7 cassettes. B. Received in formalin labeled "portion of remaining spleen" is a 26 g, aggregate of 2 ch-brown, irregular, unoriented portions of tissue measuring 4.5 x 2.8 x 1.5 cm and 5.0 x 4.0 x 2.3 cm. Sectioning reveals red-brown splenic parenchyma with foci of hemorrhage within the larger portion of tissue. Correctional Probation Officer sections are submitted in 6 cassettes as follows: 1-4-larger portion of spleen; 5-6-smaller portion of spleen. DL/02/04/2017 saudi/02/04/2017
[2017-02-06] MEDS: HYDROmorphone *PCA* 10MG/50ML DISP.SYRIN PCA SCH ×2 (16:07→16:08)
--- NOTE | 2017-02-06 18:02 | PN ---
GI Progress Note Subjective: Called to evaluate abnormal liver chemistries Patient was started on a diet as she has been having bowel movements Pain in the abdomen along surgical sit when she moves - Objective Vital Signs: Vital Signs Temperature 98 F 02/06/17 14:00 Pulse Rate 70 02/06/17 14:00 Respiratory Rate 16 02/06/17 14:00 Blood Pressure 112/72 02/06/17 14:00 O2 Sat by Pulse Oximetry (%) 97 02/06/17 09:00 Constitutional: Calm Eyes: No: PERRL Cardiovascular: Yes: Regular Rate and Rhythm. No: Tachycardia Respiratory: No: CTA Bilaterally Gastrointestinal Inspection: Yes: Distention (Mildly protuberant) ...Auscultate: Yes: Normoactive Bowel Sounds ...Palpate: Yes: Hepatomegaly (No RUQ TTP), Tenderness ( upon palpation along surgical site) Edema: No Neurological: Yes: Alert, Oriented Labs: CBC, BMP 02/06/17 05:15 02/06/17 05:15 INR, PTT INR 1.06 (0.82-1.09) 02/06/17 09:35 Laboratory Tests 02/03/17 02/03/17 02/04/17 07:30 18:00 05:50 Total Bilirubin 0.8 AST 209 H D ALT 62 D Alkaline Phosphatase 78 D Total Protein 4.8 L Albumin 2.2 L D Hepatitis A IgM Ab Negative Hep Bs Antigen Negative Hep B Core IgM Ab Negative Hepatitis C Ab (EIA) <0.1 Monoscreen Negative 02/05/17 02/06/17 12:05 05:15 Total Bilirubin 0.7 0.8 AST 81 H D 209 H D ALT 53 103 H D Alkaline Phosphatase 157 H D 220 H D Total Protein 5.6 L 6.2 L Albumin 2.4 L 2.7 L Hepatitis A IgM Ab Hep Bs Antigen Hep B Core IgM Ab Hepatitis C Ab (EIA) Monoscreen Problem List - Problems (1) Splenic rupture Assessment/Plan: Continuing Post-Op care per Surgery Code(s): S36.09XA - OTHER INJURY OF SPLEEN, INITIAL ENCOUNTER (2) Abnormal liver function test Assessment/Plan: ? if medication related / reactive (received zosyn/lovenox). ? if superimposed acute process on preexisating liver such as NAFLD Will check abdominal US Continue to monitor LFT's now off Abx If LFT's continue to rise, triple phase CT scan with and without IV contrast to assess hepatoportal vasculature and pancreas Code(s): R79.89 - OTHER SPECIFIED ABNORMAL FINDINGS OF BLOOD CHEMISTRY
[2017-02-06] MEDS: morphine CARPU-JECT 2 MG/1 ML DISP.SYRIN IVPUSH PRN (19:13)
[2017-02-06] MEDS: oxyCODONE HCL 5 MG TABLET PO PRN (19:13)
[2017-02-07] MEDS: morphine CARPU-JECT 2 MG/1 ML DISP.SYRIN IVPUSH PRN (05:05)
[2017-02-07] MEDS: INSULIN SLIDING SCALE (NOVOLOG) 1 VIAL SQ SCH ×3 (06:06→17:45)
[2017-02-07 07:01] LABS: MCH 29.8 pg (25.7-33.7); MCHC 33.4 g/dl (32.0-36.0); MEAN CELL VOLUME 89.2 fl (80-96); MEAN PLT VOLUME 8.1 fl (7.5-11.1); PLATELET COUNT 409 K/MM3 (134-434); RDW 18.5 % (11.6-15.6)
[2017-02-07 07:12] LABS: ALBUMIN 2.6 g/dl (3.4-5.0); ANION GAP 10 (8-16); BILIRUBIN,DIRECT 0.2 mg/dL (0.0-0.2); CALCIUM 8.6 mg/dL (8.5-10.1); CO2 24 mmol/L (21-32); COCKROFT - GAULT 152.1415; CREATININE 0.4 mg/dL (0.55-1.02); GLUCOSE,RANDOM 87 mg/dL (74-106); SGOT/AST 399 U/L (15-37); SGPT/ALT 222 U/L (12-78)
[2017-02-07 07:15] LABS: ALK PHOS 238 U/L (45-117); BILIRUBIN,TOTAL 0.7 mg/dL (0.2-1.0); TOT PROT 6.1 g/dl (6.4-8.2)
[2017-02-07] MEDS: ENOXAPARIN NA (PORCINE) 40 MG/0.4 ML DISP.SYRIN SQ SCH (09:49)
[2017-02-07] MEDS: THIAMINE HCL 200 MG/2 ML VIAL IVPB SCH (09:49)
--- NOTE | 2017-02-07 16:27 | PN ---
Physical Exam: SUBJECTIVE: Patient seen and examined. She feels well, denies abdominal pain, tenderness when laughs. Is ambulating. Denies fever, chills. OBJECTIVE: Vital Signs Period Temp Pulse Resp BP Sys/Mccann Pulse Ox Last 24 Hr 98.7 F-98.9 F 66-85 18-21 112-138/62-74 98-98 PE Neuro: alert, awake, cn 2-12intact Pulm: CTAB CV: s1 s2 rrr no mrg Abd: mid line ana rosa CDI, no erythema, drainage, clicking Ext: warm, no le edema Laboratory Results - last 24 hr CBCD WBC 13.0 K/mm3 (4.0-10.0) H 02/07/17 05:55 RBC 2.89 M/mm3 (3.60-5.2) L 02/07/17 05:55 Hgb 8.6 GM/dL (10.7-15.3) L 02/07/17 05:55 Hct 25.8 % (32.4-45.2) L 02/07/17 05:55 MCV 89.2 fl (80-96) 02/07/17 05:55 MCHC 33.4 g/dl (32.0-36.0) 02/07/17 05:55 RDW 18.5 % (11.6-15.6) H 02/07/17 05:55 Plt Count 409 K/MM3 (134-434) D 02/07/17 05:55 MPV 8.1 fl (7.5-11.1) 02/07/17 05:55 CMP Sodium 138 mmol/L (136-145) 02/07/17 05:55 Potassium 3.7 mmol/L (3.5-5.1) 02/07/17 05:55 Chloride 104 mmol/L (98-107) 02/07/17 05:55 Carbon Dioxide 24 mmol/L (21-32) 02/07/17 05:55 Anion Gap 10 (8-16) 02/07/17 05:55 BUN 3 mg/dL (7-18) L D 02/07/17 05:55 Creatinine 0.4 mg/dL (0.55-1.02) L 02/07/17 05:55 Creat Clearance w eGFR > 60 (>60) 02/07/17 05:55 Calcium 8.6 mg/dL (8.5-10.1) 02/07/17 05:55 Total Bilirubin 0.7 mg/dL (0.2-1.0) 02/07/17 05:55 AST 399 U/L (15-37) H D 02/07/17 05:55 ALT 222 U/L (12-78) H D 02/07/17 05:55 Alkaline Phosphatase 238 U/L (45-117) H 02/07/17 05:55 Total Protein 6.1 g/dl (6.4-8.2) L 02/07/17 05:55 Albumin 2.6 g/dl (3.4-5.0) L 02/07/17 05:55 Active Medications Generic Name Dose Route Start Last Admin Trade Name Freq PRN Reason Stop Dose Admin Enoxaparin Sodium 40 mg 02/06/17 10:00 02/07/17 09:49 Lovenox - SQ 40 mg DAILY LUCIO Administration Insulin Aspart 1 vial 02/03/17 07:00 02/07/17 11:47 Novolog Vial Sliding Scale - SQ Not Given TIDAC [facility] Protocol Lorazepam 2 mg 02/03/17 05:59 Ativan Injection - IVPUSH Q2H PRN ANXIETY Morphine Sulfate 1 mg 02/06/17 16:38 02/07/17 05:05 Morphine Injection - IVPUSH 1 mg Q6H PRN Administration PAIN Ondansetron HCl 4 mg 02/03/17 03:54 Zofran Injection IVPB Q4H PRN NAUSEA AND/OR VOMITING Oxycodone HCl 5 mg 02/06/17 16:38 02/06/17 19:13 Roxicodone - PO 5 mg Q4H PRN Administration PAIN Promethazine HCl 12.5 mg 02/03/17 11:31 Phenergan Injection - IVPB Q6H PRN NAUSEA AND/OR VOMITING Thiamine HCl 200 mg 02/03/17 10:00 02/07/17 09:49 Vitamin B1 Injection - IVPB 200 mg DAILY LUCIO Administration Assessment: 41 year old female with hx of ETOH abuse, pancreatitis admitted with x2 days of of acute abdominal pain and bloating, dark stools, nausea, bilious emesis and non bloody diarrhea. Last drink was Thursday 02/01. Plan: 1. Transaminitis - Levels continue to rise - CTAP shows 2cm hepatic cyst, hepatomegaly - Triple phase CT with and without IV contrast to assess hepatoportal vasculature and pancreas - GI following 2. Acute traumatic splenic rupture/Hemoperitoneum - Leukocytosis improving - s/p Splenectomy 02/03 - Refer to ID note (02/05/17) for vaccinations to give prior to discharge - Full liquids 3. Acute pancreatitis - Improved, likely from splenic rupture/etoh abuse 4. Abnormal pancreatic tail - Will need GI follow up contrast imaging of her pancreas as outpt once stable 5. Acute blood loss anemia - Due to blunt trauma - Transfused 5uprbc, 2 units FFP, 1uplts in total 6. Secondary hyperthyroidism - Will need to repeat TSH if still high will need to check: - ACTH, FSH, LH, grown hormone and check brain MRI pituitary 7. ETOH abuse - No acute withdrawal issues - Thiamine daily - Folic acid 8. Malnutrition - Low BUN - Will trend 9. PPx - DVT: Stop lovenox, start heparin TID for LFT elevation Visit type - Emergency Visit Emergency Visit: Yes ED Registration Date: 02/03/17 Care time: The patient presented to the Emergency Department on the above date and was hospitalized for further evaluation of their emergent condition. - New Patient This patient is new to me today: No - Critical Care Critical Care patient: No
--- NOTE | 2017-02-07 16:31 | PN ---
Progress Note (short form) - Note Progress Note: surgery pt seen and examined. feels well. hungry. tolerating liquids afebrile abd- soft, nt, incision clean, A/P 1) Pod#5 s/p emergent splenectomy- regular diet. f/u in 2 weeks for staple removal [phone] 2) acute blood loss anemia- ok for lovenox 3) prophylaxis- lovenox, protonix, oob 4) abnormal pancreatic tail- will not be followed or evaluated by general surgery service. this could be a malignancy. pt understands. will have outpt w /u per medical team. Ct done today per gi. 5) ruptured spleen- likely traumatic. 6) leukocytosis- common after splenectomy, improved
--- NOTE | 2017-02-07 19:51 | PN ---
GI Progress Note Subjective: No acute events states feeling hungry. gets bloated after eating No abdominal pain Repeat CT scan failed to reveal PVT however there is still fluid surrounding pancreas - Objective Vital Signs: Vital Signs Temperature 98.8 F 02/07/17 14:23 Pulse Rate 70 02/07/17 14:23 Respiratory Rate 18 02/07/17 08:00 Blood Pressure 121/70 02/07/17 14:23 O2 Sat by Pulse Oximetry (%) 98 02/07/17 09:00 Constitutional: Calm Eyes: No: Sclera Icterus Cardiovascular: Yes: Regular Rate and Rhythm Respiratory: Yes: CTA Bilaterally Gastrointestinal Inspection: No: Distention ...Auscultate: Yes: Normoactive Bowel Sounds ...Palpate: Yes: Tenderness (mild TTP at scar) ...Percussion: No: Tympanitic Edema: No Neurological: Yes: Alert, Oriented Labs: CBC, BMP 02/07/17 05:55 02/07/17 05:55 INR, PTT INR 1.06 (0.82-1.09) 02/06/17 09:35 Hepatic Panel Total Bilirubin 0.7 mg/dL (0.2-1.0) 02/07/17 05:55 Direct Bilirubin 0.2 mg/dL (0.0-0.2) 02/07/17 05:55 AST 399 U/L (15-37) H D 02/07/17 05:55 ALT 222 U/L (12-78) H D 02/07/17 05:55 Alkaline Phosphatase 238 U/L (45-117) H 02/07/17 05:55 Albumin 2.6 g/dl (3.4-5.0) L 02/07/17 05:55 - ....Imaging Cat Scan: Report Reviewed, Image Reviewed (fatty liver, no PVT, peripancreatic fluid) Problem List - Problems (1) Splenic rupture Assessment/Plan: Post op care per surgery Code(s): S36.09XA - OTHER INJURY OF SPLEEN, INITIAL ENCOUNTER (2) Abnormal liver function test Assessment/Plan: Continued to rise asymptomatically Monitor LFTs Avoid hepatotoxic agents ? if reactive secondary to the surrounding blood in the peritoneum. The Head of pancreas appeareared prominent on US with normal caliber CBD at 2mm so do not think obstructive etiology is the cause Code(s): R79.89 - OTHER SPECIFIED ABNORMAL FINDINGS OF BLOOD CHEMISTRY
[2017-02-07] MEDS: oxyCODONE HCL 5 MG TABLET PO PRN (20:38)
[2017-02-08 06:53] LABS: BASOPHIL 0.2 % (0-2.0); EOSINOPHIL 0.6 % (0-4.5); MCH 29.7 pg (25.7-33.7); MCHC 33.5 g/dl (32.0-36.0); MEAN CELL VOLUME 88.7 fl (80-96); MEAN PLT VOLUME 7.9 fl (7.5-11.1); NEUTROPHILS 75.2 % (42.8-82.8); PLATELET COUNT 538 K/MM3 (134-434); RDW 18.2 % (11.6-15.6); WHITE BLOOD COUNT 18.1 K/mm3 (4.0-10.0)
[2017-02-08 07:20] LABS: ALBUMIN 2.6 g/dl (3.4-5.0); CALCIUM 8.6 mg/dL (8.5-10.1)
[2017-02-08 07:24] LABS: BILIRUBIN,DIRECT 0.2 mg/dL (0.0-0.2); BILIRUBIN,TOTAL 0.5 mg/dL (0.2-1.0); COCKROFT - GAULT 130.6705; CREATININE 0.4 mg/dL (0.55-1.02); TOT PROT 6.1 g/dl (6.4-8.2)
[2017-02-08] MEDS: FOLIC ACID 1 MG TABLET (FP) PO SCH (10:13)
[2017-02-08] MEDS: HEPARIN NA (PORCINE) 5,000 UNITS/ML 1ML VIAL SQ SCH ×3 (10:13→22:34)
[2017-02-08] MEDS: THIAMINE HCL 100 MG TABLET (FP) PO SCH (10:13)
--- NOTE | 2017-02-08 10:37 | PN ---
Progress Note (short form) - Note Progress Note: SUBJECTIVE: The patient was seen and examined at the bedside, she denies any pain. She reports feeling full frequently after only eating about half her meal. Recommendation for smaller more frequent meals was given Current Medications Generic Name Dose Route Start Last Admin Trade Name Evangelista PRN Reason Stop Dose Admin Folic Acid 1 mg 02/08/17 10:00 02/08/17 10:13 Folic Acid - PO 1 mg DAILY LUCIO Administration Heparin Sodium (Porcine) 5,000 unit 02/08/17 10:00 02/08/17 10:13 Heparin - SQ 5,000 unit TID LUCIO Administration Morphine Sulfate 1 mg 02/06/17 16:38 02/07/17 05:05 Morphine Injection - IVPUSH 1 mg Q6H PRN Administration PAIN Ondansetron HCl 4 mg 02/03/17 03:54 Zofran Injection IVPB Q4H PRN NAUSEA AND/OR VOMITING Oxycodone HCl 5 mg 02/06/17 16:38 02/07/17 20:38 Roxicodone - PO 5 mg Q4H PRN Administration PAIN Thiamine HCl 100 mg 02/08/17 10:00 02/08/17 10:13 Vitamin B1 - PO 100 mg DAILY LUCIO Administration OBJECTIVE: Vital Signs Period Temp Pulse Resp BP Sys/Mccann Pulse Ox Last 24 Hr 98.6 F-99.0 F 70-105 20-20 116-121/66-72 98 Physical Exam: General: NAD, A&Ox3 Lungs: CTA bilaterally Heart: RRR, S1S2 Abd: Midline abdominal incision, c/d/i Ext: Warm, well-perfused. 2+ DP/PT bilaterally Neuro: CN 2-12 intact CBCD WBC 18.1 K/mm3 (4.0-10.0) H D 02/08/17 06:20 RBC 2.97 M/mm3 (3.60-5.2) L 02/08/17 06:20 Hgb 8.8 GM/dL (10.7-15.3) L 02/08/17 06:20 Hct 26.3 % (32.4-45.2) L 02/08/17 06:20 MCV 88.7 fl (80-96) 02/08/17 06:20 MCHC 33.5 g/dl (32.0-36.0) 02/08/17 06:20 RDW 18.2 % (11.6-15.6) H 02/08/17 06:20 Plt Count 538 K/MM3 (134-434) H D 02/08/17 06:20 MPV 7.9 fl (7.5-11.1) 02/08/17 06:20 CMP Sodium 138 mmol/L (136-145) 02/08/17 06:20 Potassium 4.0 mmol/L (3.5-5.1) 02/08/17 06:20 Chloride 103 mmol/L (98-107) 02/08/17 06:20 Carbon Dioxide 24 mmol/L (21-32) 02/08/17 06:20 Anion Gap 11 (8-16) 02/08/17 06:20 BUN 5 mg/dL (7-18) L D 02/08/17 06:20 Creatinine 0.4 mg/dL (0.55-1.02) L 02/08/17 06:20 Creat Clearance w eGFR > 60 (>60) 02/07/17 05:55 Random Glucose 78 mg/dL (74-106) 02/08/17 06:20 Calcium 8.6 mg/dL (8.5-10.1) 02/08/17 06:20 Total Bilirubin 0.5 mg/dL (0.2-1.0) D 02/08/17 06:20 AST 125 U/L (15-37) H D 02/08/17 06:20 ALT 153 U/L (12-78) H D 02/08/17 06:20 Alkaline Phosphatase 214 U/L (45-117) H 02/08/17 06:20 Total Protein 6.1 g/dl (6.4-8.2) L 02/08/17 06:20 Albumin 2.6 g/dl (3.4-5.0) L 02/08/17 06:20 Microbiology 02/03/17 01:00 Blood - Peripheral Venous Blood Culture - Preliminary NO GROWTH OBTAINED AFTER 96 HOURS, INCUBATION TO CONTINUE FOR 1 DAYS. 02/03/17 01:00 Blood - Peripheral Venous Blood Culture - Preliminary NO GROWTH OBTAINED AFTER 96 HOURS, INCUBATION TO CONTINUE FOR 1 DAYS. 02/03/17 13:00 Urine - Urine Cohn Urine Culture - Final NO GROWTH OBTAINED Assessment: This is a 41 year old female with PMHx of ETOH abuse, pancreatitis who presented to the ED with 2 days of acute abdominal pain and bloating, dark stools, nausea, bilious emesis and non bloody diarrhea. Last drink was Thursday 02/01. Plan: 1) GI: Transaminitis - Trending down - CTAP with hepatomegaly and probable diffuse fatty infiltration of the liver with no evidence of pleural vein thrombosis. 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 - Will need vaccinations prior to discharge (see ID note 02/05/17) - Regular diet - Appreciate surgery consult - Appreciate ID consult Acute pancreatitis - Improving - Likely / splenic rupture/etoh abuse Abnormal pancreatic tail - Will need outpatient follow-up for further imaging to evaluate pancreatic tail 2) Heme: Acute blood loss anemia - 2/2 blunt trauma - Transfused 5u PRBC, 2u FFP, 1u platelets in total - Hgb stable 3) Endocrine: secondary hyperthyroidism - Recheck TSH as an outpatient in 3-4 weeks 4) Psych: ETOH abuse - No evidence of acute withdrawal - Continue Thiamine - Continue folic acid 5) F/E/N: - Malnutrition as evidence by low BMI - Regular diet - Ensure shakes - Monitor electrolytes 6) Prophylaxis: - Heparin 5,000u sq tid 7) Dispo: - Once condition improves CODE STATUS: FULL CODE Visit type - Emergency Visit Emergency Visit: Yes ED Registration Date: 02/03/17 Care time: The patient presented to the Emergency Department on the above date and was hospitalized for further evaluation of their emergent condition. - New Patient This patient is new to me today: Yes Date on this admission: 02/08/17 - Critical Care Critical Care patient: No
--- NOTE | 2017-02-08 16:26 | PN ---
GI Progress Note Subjective: Found sitting up in bed watching TV in no distress No abdominal pain Tolerating PO No acute issues overnight - Objective Vital Signs: Vital Signs Temperature 99.1 F 02/08/17 14:05 Pulse Rate 94 H 02/08/17 14:05 Respiratory Rate 20 02/08/17 14:05 Blood Pressure 125/67 02/08/17 14:05 O2 Sat by Pulse Oximetry (%) 98 02/08/17 09:00 Constitutional: Calm Eyes: No: Sclera Icterus Cardiovascular: Yes: Regular Rate and Rhythm Respiratory: Yes: CTA Bilaterally Gastrointestinal Inspection: Yes: Scars (surgical scar with ana rosa) ...Auscultate: Yes: Normoactive Bowel Sounds ...Percussion: No: Tympanitic Edema: No Neurological: Yes: Alert, Oriented Labs: CBC, BMP 02/08/17 06:20 02/08/17 06:20 INR, PTT INR 1.06 (0.82-1.09) 02/06/17 09:35 Laboratory Tests 02/08/17 06:20 Total Amylase 80 D Lipase 468 H Problem List - Problems (1) Splenic rupture Assessment/Plan: Continuing to convalesce and improve clinically WBC has increased. If continued worsening leukocytosis / fevers, ID f/u Code(s): S36.09XA - OTHER INJURY OF SPLEEN, INITIAL ENCOUNTER (2) Abnormal liver function test Assessment/Plan: Liver chemistries improving overall. ? reactive in nature, secondary to abx or combination of causes Continue to monitor Code(s): R79.89 - OTHER SPECIFIED ABNORMAL FINDINGS OF BLOOD CHEMISTRY
[2017-02-08] MEDS: oxyCODONE HCL 5 MG TABLET PO PRN (20:52)
[2017-02-09] MEDS: HEPARIN NA (PORCINE) 5,000 UNITS/ML 1ML VIAL SQ SCH ×3 (06:34→21:48)
[2017-02-09 07:33] LABS: EOSINOPHIL 0.9 % (0-4.5); MCHC 33.7 g/dl (32.0-36.0); MEAN CELL VOLUME 88.9 fl (80-96); MEAN PLT VOLUME 7.9 fl (7.5-11.1); NEUTROPHILS 66.9 % (42.8-82.8); PLATELET COUNT 648 K/MM3 (134-434); RDW 17.7 % (11.6-15.6); WHITE BLOOD COUNT 15.4 K/mm3 (4.0-10.0)
[2017-02-09 08:02] LABS: ALBUMIN 2.9 g/dl (3.4-5.0); ANION GAP 10 (8-16); CALCIUM 8.9 mg/dL (8.5-10.1); CO2 25 mmol/L (21-32); GLUCOSE,RANDOM 94 mg/dL (74-106); SGOT/AST 50 U/L (15-37); SGPT/ALT 104 U/L (12-78)
[2017-02-09 08:04] LABS: ALK PHOS 185 U/L (45-117); BILIRUBIN,TOTAL 0.6 mg/dL (0.2-1.0); CREATININE 0.5 mg/dL (0.55-1.02); TOT PROT 6.6 g/dl (6.4-8.2)
[2017-02-09] MEDS: FOLIC ACID 1 MG TABLET (FP) PO SCH (11:00)
[2017-02-09] MEDS: THIAMINE HCL 100 MG TABLET (FP) PO SCH (11:00)
--- NOTE | 2017-02-09 11:45 | PN ---
Progress Note (short form) - Note Progress Note: SUBJECTIVE: The patient was seen and examined at the bedside, she denies any pain. Current Medications Generic Name Dose Route Start Last Admin Trade Name Evangelista PRN Reason Stop Dose Admin Folic Acid 1 mg 02/08/17 10:00 02/09/17 11:00 Folic Acid - PO 1 mg DAILY LUCIO Administration Heparin Sodium (Porcine) 5,000 unit 02/08/17 10:00 02/09/17 06:34 Heparin - SQ 5,000 unit TID LUCIO Administration Morphine Sulfate 1 mg 02/06/17 16:38 02/07/17 05:05 Morphine Injection - IVPUSH 1 mg Q6H PRN Administration PAIN Ondansetron HCl 4 mg 02/03/17 03:54 Zofran Injection IVPB Q4H PRN NAUSEA AND/OR VOMITING Oxycodone HCl 5 mg 02/06/17 16:38 02/08/17 20:52 Roxicodone - PO 5 mg Q4H PRN Administration PAIN Thiamine HCl 100 mg 02/08/17 10:00 02/09/17 11:00 Vitamin B1 - PO 100 mg DAILY LUCIO Administration OBJECTIVE: Vital Signs Period Temp Pulse Resp BP Sys/Mccann Pulse Ox Last 24 Hr 98.6 F-99.1 F 71-94 20-20 105-125/63-79 98 Physical Exam: General: NAD, A&Ox3 Lungs: CTA bilaterally Heart: RRR, S1S2 Abd: Midline abdominal incision, c/d/i Ext: Warm, well-perfused. 2+ DP/PT bilaterally Neuro: CN 2-12 intact CBCD WBC 15.4 K/mm3 (4.0-10.0) H 02/09/17 06:00 RBC 3.02 M/mm3 (3.60-5.2) L 02/09/17 06:00 Hgb 9.0 GM/dL (10.7-15.3) L 02/09/17 06:00 Hct 26.8 % (32.4-45.2) L 02/09/17 06:00 MCV 88.9 fl (80-96) 02/09/17 06:00 MCHC 33.7 g/dl (32.0-36.0) 02/09/17 06:00 RDW 17.7 % (11.6-15.6) H 02/09/17 06:00 Plt Count 648 K/MM3 (134-434) H D 02/09/17 06:00 MPV 7.9 fl (7.5-11.1) 02/09/17 06:00 CMP Sodium 138 mmol/L (136-145) 02/09/17 06:00 Potassium 4.1 mmol/L (3.5-5.1) 02/09/17 06:00 Chloride 103 mmol/L (98-107) 02/09/17 06:00 Carbon Dioxide 25 mmol/L (21-32) 02/09/17 06:00 Anion Gap 10 (8-16) 02/09/17 06:00 BUN 5 mg/dL (7-18) L 02/09/17 06:00 Creatinine 0.5 mg/dL (0.55-1.02) L D 02/09/17 06:00 Creat Clearance w eGFR > 60 (>60) 02/09/17 06:00 Random Glucose 94 mg/dL (74-106) D 02/09/17 06:00 Calcium 8.9 mg/dL (8.5-10.1) 02/09/17 06:00 Total Bilirubin 0.6 mg/dL (0.2-1.0) 02/09/17 06:00 AST 50 U/L (15-37) H D 02/09/17 06:00 ALT 104 U/L (12-78) H D 02/09/17 06:00 Alkaline Phosphatase 185 U/L (45-117) H 02/09/17 06:00 Total Protein 6.6 g/dl (6.4-8.2) 02/09/17 06:00 Albumin 2.9 g/dl (3.4-5.0) L 02/09/17 06:00 Microbiology 02/03/17 01:00 Blood - Peripheral Venous Blood Culture - Final NO GROWTH AFTER 5 DAYS INCUBATION 02/03/17 01:00 Blood - Peripheral Venous Blood Culture - Final NO GROWTH AFTER 5 DAYS INCUBATION 02/03/17 13:00 Urine - Urine Cohn Urine Culture - Final NO GROWTH OBTAINED Assessment: This is a 41 year old female with PMHx of ETOH abuse, pancreatitis who presented to the ED with 2 days of acute abdominal pain and bloating, dark stools, nausea, bilious emesis and non bloody diarrhea. Last drink was Thursday 02/01. Plan: 1) GI: Transaminitis - Trending down - CTAP with hepatomegaly and probable diffuse fatty infiltration of the liver with no evidence of pleural vein thrombosis. 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 - Will need vaccinations prior to discharge (see ID note 02/05/17) - Regular diet - Appreciate surgery consult - Appreciate ID consult Acute pancreatitis - Improving - Likely 2/2 splenic rupture/etoh abuse Abnormal pancreatic tail - Will need outpatient follow-up for further imaging to evaluate pancreatic tail 2) ID: Leukocytosis - Improving slightly - Remains afebrile - Reconsult ID for evaluation of leukocytosis 3) Heme: Acute blood loss anemia - 2/2 blunt trauma - Transfused 5u PRBC, 2u FFP, 1u platelets in total - Hgb stable 4) Endocrine: secondary hyperthyroidism - Recheck TSH as an outpatient in 3-4 weeks 5) Psych: ETOH abuse - No evidence of acute withdrawal - Continue Thiamine - Continue folic acid 6) F/E/N: - Malnutrition as evidence by low BMI - Regular diet - Ensure shakes - Monitor electrolytes 7) Prophylaxis: - Heparin 5,000u sq tid 8) Dispo: - Once condition improves CODE STATUS: FULL CODE Visit type - Emergency Visit Emergency Visit: Yes ED Registration Date: 02/03/17 Care time: The patient presented to the Emergency Department on the above date and was hospitalized for further evaluation of their emergent condition. - New Patient This patient is new to me today: No - Critical Care Critical Care patient: No
[2017-02-09] MEDS ORDERED: DOCUSATE SODIUM 100 MG CAPSULE (FP) PO PRN (14:22)
--- NOTE | 2017-02-09 14:24 | PN ---
Progress Note (short form) - Note Progress Note: remains afebrile eating well, good appetite c/o constipation- no BM yet Vital Signs Period Temp Pulse Resp BP Sys/Mccann Pulse Ox Last 24 Hr 98.6 F-98.9 F 64-84 18-20 100-121/63-79 98 cor-rrr lungs clear abd soft, +incision with ana rosa intact, no erythema ext no edema CBC, BMP 02/09/17 06:00 02/09/17 06:00 a/p s/p emergency surgery for splenic rupture 02/03 history of ETOH use doing well postop oob to chair leukocytosis and thrombocytosis are very common in the post op period s/p splenectomy she has no signs of clinical infection- she has not identified any provider for post op care- would proceed with vaccines as previously outlined prior to discharge
[2017-02-09] MEDS ORDERED: oxyCODONE HCL 5 MG TABLET PO PRN (21:51)
[2017-02-10] MEDS: HEPARIN NA (PORCINE) 5,000 UNITS/ML 1ML VIAL SQ SCH ×3 (06:32→22:00)
[2017-02-10 09:08] LABS: ALBUMIN 3.2 g/dl (3.4-5.0); ALK PHOS 192 U/L (45-117); ANION GAP 10 (8-16); BILIRUBIN,TOTAL 0.3 mg/dL (0.2-1.0); CALCIUM 9.3 mg/dL (8.5-10.1); CO2 27 mmol/L (21-32); CREATININE 0.5 mg/dL (0.55-1.02); GLUCOSE,RANDOM 93 mg/dL (74-106); SGOT/AST 38 U/L (15-37); SGPT/ALT 87 U/L (12-78); TOT PROT 7.6 g/dl (6.4-8.2)
[2017-02-10] MEDS: THIAMINE HCL 100 MG TABLET (FP) PO SCH (10:41)
[2017-02-10] MEDS: FOLIC ACID 1 MG TABLET (FP) PO SCH (10:41)
--- NOTE | 2017-02-10 12:01 | DS ---
Physical Examination Vital Signs: Vital Signs Temperature 98.7 F 02/10/17 10:00 Pulse Rate 85 02/10/17 10:00 Respiratory Rate 20 02/10/17 10:00 Blood Pressure 113/89 02/10/17 10:00 O2 Sat by Pulse Oximetry (%) 98 02/08/17 21:00 Labs: CBC, BMP 02/09/17 06:00 02/10/17 07:25 Discharge Summary Reason For Visit: ACUTE PANCREATITIS Current Active Problems Abnormal liver function test (Acute) Alcohol dependence with uncomplicated withdrawal (Acute) Hemoperitoneum (Acute) Pancreatitis, acute (Acute) Splenic rupture (Acute) Hospital Course: The patient was discharged on 02/10, however she will be leaving on 02/11 as we do not have the HIB vaccine here. She will be discharged once an appointment is made for her to follow-up with pcp Dr. Taylor) in the office to receive the HIB vaccine and Meningicoccal vaccine this week. Condition: Improved - Instructions Diet, Activity, Other Instructions: Please return to the ED with new, persistent, or worsening symptoms. Please follow-up with providers as indicated. Vaccines: - You have received Prevnar on 02/10/17. You must schedule an appointment with your pcp to receive Pneumovax in 8 weeks from today. You will need a repeat pneumovax in 5 years - You have received Meningococcal A (Menactra) on 02/10/17. You MUST schedule an appointment with your pcp to receive a second dose of Menactra in 2 months from today - You have received Hemophilus B vaccine on 02/10/17 - You MUST schedule an appointment with your pcp within 2-3 days to receive Meningococcus B vaccine. - You MUST receive your yearly influenza vaccine Please get a medical alert bracelet that states "Asplenic" on it. You are being discharged with a prescription for Augmentin. You MUST take it immediately if you have a fever and seek medical care immediately No heavy lifting until you are reevaluated by your surgeon. You may shower. Referrals: Nghia Taylor MD [Staff Physician] - (Please follow-up with Dr. Hanson within 2-3 days. It is IMPORTANT you make this appointment as you will need to receive the meningococcal B vaccine as well as schedule appointments for follow-up vaccines as indicated on your discharge instructions. Please also have your TSH rechecked by your pcp within 3-4 weeks. Your TSH was 5.63 on 02/04/17) Moe Aguilar DO [Staff Physician] - (Please follow-up with Dr. Aguilar within 1 week for further evaluation of the abnormalities on your pancreatic tail) Yannick Salomon MD [Staff Physician] - (Please follow-up with Dr. Salomon in 10 days for staple removal and for post operative assessment) Disposition: HOME - Home Medications Comprehensive Discharge Medication List: Ambulatory Orders Amoxicillin/Potassium Clav [Augmentin 875-125 Tablet] 1 each PO BID PRN #20 tablet 02/10/17 Docusate Sodium [Colace -] 100 mg PO BID PRN #90 tab 02/10/17 Folic Acid - 1 mg PO DAILY #30 tablet 02/10/17 Thiamine HCl [Vitamin B1 -] 100 mg PO DAILY #30 tablet 02/10/17
[2017-02-10] MEDS ORDERED: PNEUMOC 13-VAL CONJ-DIP CRM/PF 0.5 ML DISP.SYRIN IM ONE (12:15)
[2017-02-10] MEDS ORDERED: [UNRECOGNIZED DRUG - OTHER] IM ONE (12:15)
[2017-02-10] MEDS ORDERED: [UNRECOGNIZED DRUG - OTHER] IM ONE (12:15)
[2017-02-10] MEDS: POLYETHYLENE GLYCOL 3350 119 GM BTL PO SCH (12:35)
[2017-02-11] MEDS: HEPARIN NA (PORCINE) 5,000 UNITS/ML 1ML VIAL SQ SCH (06:19)
[2017-02-11] MEDS: THIAMINE HCL 100 MG TABLET (FP) PO SCH (09:36)
[2017-02-11] MEDS: FOLIC ACID 1 MG TABLET (FP) PO SCH (09:36)
[2017-02-11] MEDS: POLYETHYLENE GLYCOL 3350 119 GM BTL PO SCH (09:37)
--- NOTE | 2017-02-11 09:48 | HOSP ---
Physical Examination Vital Signs: Vital Signs Temperature 98.6 F 02/11/17 06:00 Pulse Rate 84 02/11/17 06:00 Respiratory Rate 18 02/11/17 06:00 Blood Pressure 113/70 02/11/17 06:00 O2 Sat by Pulse Oximetry (%) 98 02/08/17 21:00 Labs: CBC, BMP 02/09/17 06:00 02/10/17 07:25 Hospitalist Encounter Assessment: Appointment made with Dr. David office so that patient can be given both the HIB vaccine and Meningococcus B Vaccine. Spoke to plaster machine operator named Ladsandeep who set appointment for this Saturday (February 13 ) @1:30pm, names of needed vaccine given to plaster machine operator who states she will order vaccines. Patient made aware to bring her discharge instructions with her as she will need continued follow up for additional vaccines Stressed to patient importance of getting these vaccines timely. Patient made aware to call us back for any reason.
[2017-02-11 10:13] VITALS: BP 119/65; PULSE 102; TEMP 98.4
== END 2017-02-11 12:09 | disposition home or self-care (01) | DRG 650 ==
LOC: JER 23:12 → JERBED 02-03 04:18 → UNDOADMIN 02-03 04:25 → JERBED 02-03 04:25 → JICU 02-03 06:05 → J6S 02-06 15:45
PROVIDERS: ADMIT Internal Medicine; ATTEND Nurse Practitioner Family
PROC: 0D9W0ZZ Drainage of Peritoneum, Open Approach (ICD-10-PCS; 2017-02-03)
PROC: 30233N1 Transfusion of Nonautologous Red Blood Cells into Peripheral Vein, Percutaneous Approach (ICD-10-PCS; 2017-02-03)
PROC: 30233K1 Transfusion of Nonautologous Frozen Plasma into Peripheral Vein, Percutaneous Approach (ICD-10-PCS; 2017-02-03)
PROC: 30233L1 Transfusion of Nonautologous Fresh Plasma into Peripheral Vein, Percutaneous Approach (ICD-10-PCS; 2017-02-03)
PROC: 30233R1 Transfusion of Nonautologous Platelets into Peripheral Vein, Percutaneous Approach (ICD-10-PCS; 2017-02-03)
PROC: 07BP0ZZ Excision of Spleen, Open Approach (ICD-10-PCS; principal; 2017-02-03 09:00)
PROC: 0WQF0ZZ Repair Abdominal Wall, Open Approach (ICD-10-PCS; 2017-02-03 09:00)
DX: S36.09XA Other injury of spleen, initial encounter (principal); K85.20 Alcohol induced acute pancreatitis without necrosis or infection; K66.1 Hemoperitoneum; D62 Acute posthemorrhagic anemia; K43.6 Other and unspecified ventral hernia with obstruction, without gangrene; F10.230 Alcohol dependence with withdrawal, uncomplicated; E46 Unspecified protein-calorie malnutrition; Z68.1 Body mass index [BMI] 19.9 or less, adult; S36.32XA Contusion of stomach, initial encounter; F17.210 Nicotine dependence, cigarettes, uncomplicated; E87.6 Hypokalemia; E83.42 Hypomagnesemia; R73.9 Hyperglycemia, unspecified; F12.10 Cannabis abuse, uncomplicated; E05.80 Other thyrotoxicosis without thyrotoxic crisis or storm; R74.0 Nonspecific elevation of levels of transaminase and lactic acid dehydrogenase [LDH]; R79.89 Other specified abnormal findings of blood chemistry; R16.0 Hepatomegaly, not elsewhere classified; X50.0XXA Overexertion from strenuous movement or load, initial encounter; Y93.89 Activity, other specified; Y92.89 Other specified places as the place of occurrence of the external cause; Y99.8 Other external cause status
CPT/HCPCS: 36415; 36430; 36511; 36600; 71010-TC; 74177-TC; 74178-TC; 76705-TC; 80048; 80053; 80061; 80074; 80076; 81003; 81015; 82150; 82375; 82728; 82803; 83036; 83050; 83540; 83550; 83615; 83625; 83690; 83721; 83735; 84100; 84439; 84443; 84466; 84478; 84481; 84703; 85025; 85027; 85610; 85730; 86308; 86850; 86900; 86901; 86922; 87040; 87086; 87389; 88305-TC; 90670; 90733; 93005; 93010; 94010; 99283-25; J1644; P9017; P9034; P9038; P9058

== ENCOUNTER 2017-09-10 19:30 | Inpatient (IN) | payer SELFPAY ==
[2017-09-10] MEDS ORDERED: ONDANSETRON *ODT* 4 MG TABLET SL ONE (20:01)
--- NOTE | 2017-09-10 20:02 | PDOC ---
Rapid Medical Evaluation Chief Complaint: Pain, Acute Time Seen by Provider: 09/10/17 19:56 Medical Evaluation: Allergies Allergy/AdvReac Type Severity Reaction Status Date / Time No Known Allergies Allergy Verified 02/02/17 23:26 09/10/17 19:57 CC; c/o upper abdominal pain with NV x 2 days. no fever/ chills, no diarrhea. PE; patient alert ox 3 , + upper abdominal pain and tenderness. pmhx: Spleenectomy 02/16 I have ordered; CBC, CMP, lipase, type and screen , ua, test. jean TRISTAN patient to the ER for further management of care. 09/10/17 20:02
[2017-09-10 20:36] LABS: BASO % 0.5 % (0-2.0); EOS % 0.3 % (0-4.5); HEMATOCRIT 42.6 % (32.4-45.2); HEMOGLOBIN 13.7 GM/dL (10.7-15.3); LYMPH % 10.5 % (8-40); MCH 28.4 pg (25.7-33.7); MCHC 32.1 g/dl (32.0-36.0); MEAN CELL VOLUME 88.5 fl (80-96); MEAN PLT VOLUME 8.4 fl (7.5-11.1); MONO % 5.5 % (3.8-10.2); NEUT % 83.2 % (42.8-82.8); PLATELET COUNT 458 K/MM3 (134-434); RBC 4.82 M/mm3 (3.60-5.2); RDW 18.6 % (11.6-15.6); WHITE BLOOD COUNT 16.6 K/mm3 (4.0-10.0)
[2017-09-10 20:40] LABS: URINE APPEARANCE SLCLOUDY; URINE BILIRUBIN NEGATIVE (NEGATIVE); URINE BLOOD NEGATIVE (NEGATIVE); URINE COLOR AMBER; URINE GLUCOSE (UA) NEGATIVE (NEGATIVE); URINE KETONE TRACE (NEGATIVE); URINE LEUK ESTERASE NEGATIVE (NEGATIVE); URINE NITRITE NEGATIVE (NEGATIVE)
[2017-09-10 21:00] LABS: INR 1.07 (0.82-1.09); PROTHROMBIN TIME (PATIENT) 12.1 SEC (9.98-11.88); URINE PROTEIN 2+ (NEGATIVE)
[2017-09-10 21:03] LABS: ACTIVATED PTT 35.7 SECONDS (26.9-34.4)
[2017-09-10 21:09] LABS: ALBUMIN 3.6 g/dl (3.4-5.0); ANION GAP 8 (8-16); BILIRUBIN,TOTAL 0.5 mg/dL (0.2-1.0); BLOOD UREA NITROGEN 5 mg/dL (7-18); CALCIUM 9.6 mg/dL (8.5-10.1); CHLORIDE 100 mmol/L (98-107); CO2 27 mmol/L (21-32); CREATININE 0.5 mg/dL (0.55-1.02); GLUCOSE,RANDOM 124 mg/dL (74-106); POTASSIUM 3.8 mmol/L (3.5-5.1); SGOT/AST 18 U/L (15-37); SGPT/ALT 20 U/L (12-78); SODIUM 135 mmol/L (136-145); TOT PROT 8.4 g/dl (6.4-8.2)
[2017-09-10 21:10] LABS: ALK PHOS 180 U/L (45-117)
[2017-09-10 21:13] LABS: LIPASE 4794 U/L (73-393)
[2017-09-10 21:25] LABS: EPI CELLS FEW /HPF (FEW); URINE BACTERIA RARE /hpf (NONE SEEN); URINE MUCUS MANY
[2017-09-10] MEDS ORDERED: ONDANSETRON 4 MG/2 ML VIAL IVPB ONE (22:21)
[2017-09-10] MEDS ORDERED: SODIUM CHLORIDE FOR INHALATION 3 ML VIAL.NEB IH ONE (22:21)
--- NOTE | 2017-09-10 22:23 | PDOC ---
History of Present Illness - General Chief Complaint: Pain Stated Complaint: INFLAMMATION Time Seen by Provider: 09/10/17 19:56 History Source: Patient - History of Present Illness Initial Comments: 09/11/17 00:10 42-year-old female complaining of left upper quadrant pain, nausea, vomiting x1 day. Denies fevers/chills/chest pain/diaphoresis, numbness, dizziness. Patient has a past medical history of pancreatitis, spleenectomy 09/11/17 00:14 Timing/Duration: reports: getting worse (er course at ated by him ruptured splemy at the [facility] having nause) Past History - Past Medical History Allergies/Adverse Reactions: Allergies Allergy/AdvReac Type Severity Reaction Status Date / Time No Known Allergies Allergy Verified 09/10/17 19:57 Home Medications: Ambulatory Orders NK [No Known Home Medication] 09/10/17 Anemia: No Asthma: No Cancer: No Cardiac Disorders: No CVA: No COPD: No CHF: No Dementia: No Diabetes: No GI Disorders: Yes (pancreatitis) Disorders: No HTN: No Hypercholesterolemia: No Liver Disease: No Seizures: No Thyroid Disease: No - Surgical History Abdominal Surgery: No Appendectomy: No Cardiac Surgery: No Cholecystectomy: No Lung Surgery: No Neurologic Surgery: No Orthopedic Surgery: No - Suicide/Smoking/Psychosocial Hx Smoking History: Current every day smoker Have you smoked in the past 12 months: No Number of Cigarettes Smoked Daily: 8 Information on smoking cessation initiated: No Hx Alcohol Use: No Drug/Substance Use Hx: Yes Substance Use Type: Alcohol, Marijuana Hx Substance Use Treatment: No Abd/GI Specific PMHX - Complaint Specific PMHX Colitis: No Diverticulitis: No Gall Bladder Disease: No GERD: No Hepatitis: No Irritable Bowel Synd (IBS): No Pancreatitis: Yes GI Ulcer Disease: No *Physical Exam - Vital Signs Last Vital Signs Temp Pulse Resp BP Pulse Ox 98.3 F 78 20 151/93 99 09/10/17 19:57 09/10/17 19:57 09/10/17 19:57 09/10/17 19:57 09/10/17 19:57 - Physical Exam General Appearance: Yes: Appropriately Dressed Respiratory/Chest: positive: Lungs Clear, Normal Breath Sounds Gastrointestinal/Abdominal: positive: Normal Bowel Sounds, Tender (LUQ), Soft Musculoskeletal: positive: Normal Inspection Extremity: positive: Normal Capillary Refill, Normal Inspection, Normal Range of Motion Integumentary: positive: Normal Color, Dry, Warm Neurologic: positive: Fully Oriented, Alert, Normal Mood/Affect, Normal Response , Motor Strength 01/04 ED Treatment Course - LABORATORY CBC & Chemistry Diagram: 09/10/17 20:20 09/10/17 20:20 - ADDITIONAL ORDERS Additional order review: Laboratory Results 09/10/17 09/10/17 09/10/17 20:20 20:20 20:20 PT with INR 12.10 H INR 1.07 PTT (Actin FS) 35.7 H Sodium 135 L Potassium 3.8 Chloride 100 Carbon Dioxide 27 Anion Gap 8 BUN 5 L Creatinine 0.5 L Creat Clearance w eGFR > 60 Random Glucose 124 H D Calcium 9.6 Total Bilirubin 0.5 D AST 18 D ALT 20 D Alkaline Phosphatase 180 H Total Protein 8.4 H Albumin 3.6 Lipase 4794 H Serum , Qual Negative Urine Color Urine Appearance Urine pH Ur Specific [place] Urine Protein Urine Glucose (UA) Urine Ketones Urine Blood Urine Nitrite Urine Bilirubin Urine Urobilinogen Ur Leukocyte Esterase Urine WBC (Auto) Urine RBC (Auto) Ur Epithelial Cells Urine Bacteria Urine Mucus 09/10/17 20:20 PT with INR INR PTT (Actin FS) Sodium Potassium Chloride Carbon Dioxide Anion Gap BUN Creatinine Creat Clearance w eGFR Random Glucose Calcium Total Bilirubin AST ALT Alkaline Phosphatase Total Protein Albumin Lipase Serum , Qual Urine Color Jessica Urine Appearance Slcloudy Urine pH 5.0 Ur Specific [place] 1.044 H Urine Protein 2+ H Urine Glucose (UA) Negative Urine Ketones Trace H Urine Blood Negative Urine Nitrite Negative Urine Bilirubin Negative Urine Urobilinogen 2.0 H Ur Leukocyte Esterase Negative Urine WBC (Auto) 3 Urine RBC (Auto) 2 Ur Epithelial Cells Few Urine Bacteria Rare Urine Mucus Many 09/10/17 20:20 RBC 4.82 D MCV 88.5 MCHC 32.1 RDW 18.6 H MPV 8.4 Neutrophils % 83.2 H D Lymphocytes % 10.5 D Monocytes % 5.5 Eosinophils % 0.3 Basophils % 0.5 - RADIOLOGY Radiology Studies Ordered: Category Date Time Status ABDOMEN & PELVIS CT WITH CONTR [CT] Stat CT Scan 09/10/17 22:21 Ordered Progress Note - Progress Note Progress Note: A: Acute pancreatitis P: CBC CMP Lipase IVF antiemetics Medical Decision Making - Medical Decision Making 09/11/17 01:46 CTAP: There is moderate amount of inflammation and fluid surrounding the pancreas. This represents acute pancreatitis. Fluid involves the lesser sac as well. There is also track of fluid along the periportal spaces. Pancreatic duct is dilated. There multiple cystic areas along the pancreas. These either represent dilated side ducts are steak lesions. This has progressed significantly since prior scan of January 2017. *DC/Admit/Observation/Transfer Diagnosis at time of Disposition: Pancreatitis, acute Qualifiers: Pancreatitis type: alcohol induced Acute pancreatitis complication: uninfected necrosis Qualified Code(s): K85.21 - Alcohol induced acute pancreatitis with uninfected necrosis - Discharge Dispostion Admit: Yes - Referrals - Patient Instructions - Post Discharge Activity
[2017-09-10] MEDS ORDERED: HYDROmorphone HCL CARPU-JECT 1 MG/1 ML DISP.SYRIN IVPB ONE (22:32)
[2017-09-10] MEDS ORDERED: ONDANSETRON 4 MG/2 ML VIAL ONE (22:35)
[2017-09-10] MEDS ORDERED: HYDROmorphone HCL CARPU-JECT 1 MG/1 ML DISP.SYRIN ONE (22:36)
--- NOTE | 2017-09-11 00:24 | PN ---
Teaching Attending Note Name of Resident: Cash Sharpe ATTENDING PHYSICIAN STATEMENT I saw and evaluated the patient. I reviewed the resident's note and discussed the case with the resident. I agree with the resident's findings and plan as documented. SUBJECTIVE: 42 F with hx.of etoh and pancreatitis who presents with left upper quadrant abdominal pain. Also with associated vomiting X1 day. Pt. states she last drank on . She drinks 1/2 liter of etoh a day. States her pain has improved now and has no nausea or vomiting. No chest pain, pressure or shortness of breath. No fevers or chills. No dysuria. Pshx: Splenectomy OBJECTIVE: Physical: VS: Vital Signs Period Temp Pulse Resp BP Sys/Mccann Pulse Ox Last 24 Hr 98.3 F 78 20 151/93 99 GEN: NAD, Resting in bed, AA0X3 HEENT: NCAT, PERRL, throat without erythema or exudates CARD: RRR S1, S2 RESP: CTAB ABD: BSX4, NTD to palpation EXT: - C/C/E CBCD WBC 16.6 K/mm3 (4.0-10.0) H 09/10/17 20:20 RBC 4.82 M/mm3 (3.60-5.2) D 09/10/17 20:20 Hgb 13.7 GM/dL (10.7-15.3) D 09/10/17 20:20 Hct 42.6 % (32.4-45.2) D 09/10/17 20:20 MCV 88.5 fl (80-96) 09/10/17 20:20 MCHC 32.1 g/dl (32.0-36.0) 09/10/17 20:20 RDW 18.6 % (11.6-15.6) H 09/10/17 20:20 Plt Count 458 K/MM3 (134-434) H D 09/10/17 20:20 MPV 8.4 fl (7.5-11.1) 09/10/17 20:20 CMP Sodium 135 mmol/L (136-145) L 09/10/17 20:20 Potassium 3.8 mmol/L (3.5-5.1) 09/10/17 20:20 Chloride 100 mmol/L (98-107) 09/10/17 20:20 Carbon Dioxide 27 mmol/L (21-32) 09/10/17 20:20 Anion Gap 8 (8-16) 09/10/17 20:20 BUN 5 mg/dL (7-18) L 09/10/17 20:20 Creatinine 0.5 mg/dL (0.55-1.02) L 09/10/17 20:20 Creat Clearance w eGFR > 60 (>60) 09/10/17 20:20 Random Glucose 124 mg/dL (74-106) H D 09/10/17 20:20 Calcium 9.6 mg/dL (8.5-10.1) 09/10/17 20:20 Total Bilirubin 0.5 mg/dL (0.2-1.0) D 09/10/17 20:20 AST 18 U/L (15-37) D 09/10/17 20:20 ALT 20 U/L (12-78) D 09/10/17 20:20 Alkaline Phosphatase 180 U/L (45-117) H 09/10/17 20:20 Total Protein 8.4 g/dl (6.4-8.2) H 09/10/17 20:20 Albumin 3.6 g/dl (3.4-5.0) 09/10/17 20:20 Home Medications Medication Instructions Recorded NK [No Known Home Medication] 09/10/17 CT ABD/Pelvis With Contrast- Acute Pancreatitis. Multiple cystic areas around pancreas. Calcifications are noted within the pancreas, representing a chronic component. Pseudocyst LUQ measuring 9 cm. Splenic vein tapers in course, Not occluded as I spoke with reading radiologist. Spleen Absent. L. renal Cyst EKG: TWI amy lateral leads ASSESSMENT AND PLAN: 42 F with Acute Pancreatitis 1.) Acute Pancreatitis - With Psudocyst complication - NPO - IVF - Monitor CBC, Lipase - Pain Control - CXR - Repeat EKG/trop - Monitor Psuedocyst with repeat Imaging in 3-6 months- GI consult 2.) ETOH Abuse - Banana Bag - Thiamine/Folic A - Librium Protocol - Detox Consult 3.) DVT Ppx - Heparin [address] in Med-sx
--- NOTE | 2017-09-11 00:35 | HP ---
CHIEF COMPLAINT: Abdominal pain, N/V PCP: Dr. David HISTORY OF PRESENT ILLNESS: 42 yo F w/ pmh of ETOH abuse, pancreatitis in 02/16 of last year, who presents to ED with three days of abdominal pain/poor PO intake and one day of N/V after recent binge drinking episode on 09/02. Pt endorses drinking excessively over New Year's Weekend (Sat - 09/02), consuming multiple bottles of tequila over the course of the weekend. Three days prior to admission, pt endorses onset of band- like LUQ abdominal pain, radiating to back and shoulders BL and decreased PO intake. Pt states the pain felt deep, persistent and was worsened by eating, deep breathing and laying on her back. She similarly endorsed multiple episodes of nonbilious emesis w/ nausea, notable for trace amounts of bright red blood. Pt has hx of two prior episodes pancreatitis in the past, once in 2015 and 2016 , and states she experienced similar symptoms both times after persistent drinking. She denies any fever/chills, BATES/dizziness, CP, SOB, cough, diarrhea, dysuria, rashes, bruising, pruritis or new neurologic symptoms. She does endorse constipation for the last three days. Pt denies any hx of chronic GI conditions or hx of HLD, autoimmune disease, gallstones, recent abdominal surgery, trauma. She does not take any chronic medications at home. 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 Mainly liquor. Drugs: Marijuana Family History: Noncontributory Allergies No Known Allergies Allergy (Verified 09/10/17 19:57) HOME MEDICATIONS: Home Medications Medication Instructions Recorded NK [No Known Home Medication] 09/10/17 REVIEW OF SYSTEMS CONSTITUTIONAL: Decreased PO intake Absent: fever, chills, diaphoresis, generalized weakness, malaise, loss of appetite, weight change HEENT: Absent: rhinorrhea, nasal congestion, throat pain, throat swelling, difficulty swallowing, mouth swelling, ear pain, eye pain, visual changes CARDIOVASCULAR: Absent: chest pain, syncope, palpitations, irregular heart rate, lightheadedness , peripheral edema RESPIRATORY: Absent: cough, shortness of breath, dyspnea with exertion, orthopnea, wheezing, stridor, hemoptysis GASTROINTESTINAL: +abdominal pain for 3 days, nausea/vomiting for one day; constipation, trace hematemesis noted yesterday Absent: abdominal distension, diarrhea, melena, hematochezia GENITOURINARY: Absent: dysuria, frequency, urgency, hesitancy, hematuria, flank pain, genital pain MUSCULOSKELETAL: Absent: myalgia, arthralgia, joint swelling, back pain, neck pain SKIN: Absent: rash, itching, pallor HEMATOLOGIC/IMMUNOLOGIC: Absent: easy bleeding, easy bruising, lymphadenopathy, frequent infections ENDOCRINE: Absent: unexplained weight gain, unexplained weight loss, heat intolerance, cold intolerance NEUROLOGIC: Absent: headache, focal weakness or paresthesias, dizziness, unsteady gait, seizure, mental status changes, bladder or bowel incontinence PHYSICAL EXAMINATION Vital Signs - 24 hr 09/10/17 19:57 Temperature 98.3 F Pulse Rate 78 Respiratory 20 Rate Blood Pressure 151/93 O2 Sat by Pulse 99 Oximetry (%) GENERAL: Awake, alert, and fully oriented, in no acute distress. HEAD: Normal with no signs of trauma. EYES: Pupils equal, round and reactive to light, extraocular movements intact, sclera anicteric, conjunctiva clear. No lid lag. EARS, NOSE, THROAT: Ears normal, nares patent, oropharynx clear without exudates. Moist mucous membranes. NECK: Normal range of motion, supple without lymphadenopathy, JVD, or masses. LUNGS: Breath sounds equal, clear to auscultation bilaterally. No wheezes, and no crackles. No accessory muscle use. HEART: Regular rate and rhythm, normal S1 and S2 without murmur, rub or gallop. ABDOMEN: Increased abdominal tone, non-distended. Pain on deep palpation in LUQ/ RUQ. Negative cohen's, negative grace's/luis patel sign. No guarding, no rebound tenderness, no masses noted. Hepatomegaly, liver edge palpable. MUSCULOSKELETAL: Normal range of motion at all joints. No bony deformities or tenderness. No CVA tenderness. UPPER EXTREMITIES: 2+ pulses, warm, well-perfused. No cyanosis. No clubbing. No peripheral edema. LOWER EXTREMITIES: 2+ pulses, warm, well-perfused. No calf tenderness. No peripheral edema. NEUROLOGICAL: Cranial nerves II-XII intact. Normal speech. Gait not evaluated PSYCHIATRIC: Cooperative. Good eye contact. Appropriate mood and affect. SKIN: Warm, dry, normal turgor, no rashes or lesions noted, normal capillary refill. Laboratory Results - last 24 hr CBC, BMP 09/10/17 20:20 09/10/17 20:20 09/10/17 09/10/17 09/10/17 20:20 20:20 20:20 WBC 16.6 H RBC 4.82 D Hgb 13.7 D Hct 42.6 D MCV 88.5 MCH 28.4 MCHC 32.1 RDW 18.6 H Plt Count 458 H D MPV 8.4 Neutrophils % 83.2 H D Lymphocytes % 10.5 D Monocytes % 5.5 Eosinophils % 0.3 Basophils % 0.5 PT with INR INR PTT (Actin FS) Sodium 135 L Potassium 3.8 Chloride 100 Carbon Dioxide 27 Anion Gap 8 BUN 5 L Creatinine 0.5 L Creat Clearance w eGFR > 60 Random Glucose 124 H D Calcium 9.6 Total Bilirubin 0.5 D AST 18 D ALT 20 D Alkaline Phosphatase 180 H Total Protein 8.4 H Albumin 3.6 Lipase 4794 H Serum , Qual Urine Color Jessica Urine Appearance Slcloudy Urine pH 5.0 Ur Specific [place] 1.044 H Urine Protein 2+ H Urine Glucose (UA) Negative Urine Ketones Trace H Urine Blood Negative Urine Nitrite Negative Urine Bilirubin Negative Urine Urobilinogen 2.0 H Ur Leukocyte Esterase Negative Urine WBC (Auto) 3 Urine RBC (Auto) 2 Ur Epithelial Cells Few Urine Bacteria Rare Urine Mucus Many Blood Type Antibody Screen 09/10/17 09/10/17 09/10/17 20:20 20:20 20:20 WBC RBC Hgb Hct MCV MCH MCHC RDW Plt Count MPV Neutrophils % Lymphocytes % Monocytes % Eosinophils % Basophils % PT with INR 12.10 H INR 1.07 PTT (Actin FS) 35.7 H Sodium Potassium Chloride Carbon Dioxide Anion Gap BUN Creatinine Creat Clearance w eGFR Random Glucose Calcium Total Bilirubin AST ALT Alkaline Phosphatase Total Protein Albumin Lipase Serum , Qual Negative Urine Color Urine Appearance Urine pH Ur Specific [place] Urine Protein Urine Glucose (UA) Urine Ketones Urine Blood Urine Nitrite Urine Bilirubin Urine Urobilinogen Ur Leukocyte Esterase Urine WBC (Auto) Urine RBC (Auto) Ur Epithelial Cells Urine Bacteria Urine Mucus Blood Type B POSITIVE Antibody Screen Negative No Micro CXR - No consolidations, pneumonias, or pleural effusions noted. Abdominal CT - Findings (my read) 1. Large L renal cyst noted 2. Large, heterogenous pancreas w/ dilated pancreatic duct, multiple diffuse calcifications 3. Possible gastric varices/hypervascularity noted in stomach wall 4. Dilated GB. Hepatic cyst noted. 5. Dilated large bowel with air/fluid levels, suggestive of fecal retention/ constipation 6. Large pancreatic pseudocyst noted EKG - NSR, NAD, QTC 457, No ST changes, TWIs noted in V1-V3 ASSESSMENT/PLAN: 42 yo F w/ pmh of ETOH abuse, pancreatitis in 02/16 of last year, who presents to ED with three days of abdominal pain/poor PO intake and one day of N/V after recent binge drinking episode on 09/02. Pt likely suffering from acute pancreatitis secondary to increased alcohol consumption. #Acute on chronic pancreatitis/pseudocyst - lipase 4794; clinical symptoms consistent w/ pancreatitis; Alk phos elevated (180), LFTs normal - NPO - IVFs (LR 150cc/hr) - Morphine 1mg IV Q4h for pain control - GI consulted - F/u official read of Abdominal CT - Lipid panel (triglycerides) - Consider RUQ U/S if does not improve - Pseudocyst noted on CT; Will require monitoring and follow-up imaging #Alcohol abuse - Chronic drinker; 7-8 drinks per night; most recent alcohol use was 09/02 - Detox consult - Librium/CIWA protocol - Banana bag - Monitor for signs of withdrawal - Counseled regarding importance of abstinence to prevent future episodes of pancreatitis and [facility]dc health benefits #TWIs in EKG - new compared to prior EKG on 02/16; no prior cardiac hx - Stat cardiac profile - Monitor for chest pain - EKG in AM #Leukocytosis - likely reactive to inflammatory process; afebrile - Trend WBC, fever curve - Monitor for infectious symptoms #Hepatic cyst - Cyst noted on Abdominal CT - GI consulted - Will require outpt f/u - AFP sent #Renal Cyst - Large simple L renal cyst on Abdominal CT - Consider renal consult - F/u official read for further characterization PPX Heparin subq SCDs FEN LR 150cc/hr Daily Electrolytes, trend Na NPO Plan discussed with attending, Dr. Anabell Sharpe, PGY1 Visit type - Emergency Visit Emergency Visit: Yes ED Registration Date: 09/11/17 Care time: The patient presented to the Emergency Department on the above date and was hospitalized for further evaluation of their emergent condition. - New Patient This patient is new to me today: Yes Date on this admission: 09/11/17 - Critical Care Critical Care patient: No
[2017-09-11] MEDS ORDERED: ONDANSETRON 4 MG/2 ML VIAL IVPB PRN (01:27)
[2017-09-11] MEDS ORDERED: chlordiazePOXIDE HCL 25 MG CAPSULE PO PRN (01:36)
[2017-09-11] MEDS ORDERED: FOLIC ACID INJECTION - 1 MG, THIAMINE HCL 100 MG, MULTIVIT INJECTION ADULT 10 ML in SOD... IVPB ONE (02:00)
[2017-09-11] MEDS: LACTATED RINGERS SOLUTION 1,000 ML/1,000 ML INFUS.BAG IV SCH ×3 (02:27→23:01)
[2017-09-11] MEDS ORDERED: morphine CARPU-JECT 10 MG/1 ML DISP.SYRIN ONE (02:43)
[2017-09-11] MEDS: morphine CARPU-JECT 10 MG/1 ML DISP.SYRIN IVPUSH PRN ×2 (02:47→11:05)
[2017-09-11 07:55] LABS: BASO % 0.2 % (0-2.0); EOS % 0.2 % (0-4.5); HEMATOCRIT 40.5 % (32.4-45.2); HEMOGLOBIN 12.8 GM/dL (10.7-15.3); LYMPH % 12.6 % (8-40); MCH 28.3 pg (25.7-33.7); MCHC 31.6 g/dl (32.0-36.0); MEAN CELL VOLUME 89.5 fl (80-96); MEAN PLT VOLUME 8.9 fl (7.5-11.1); MONO % 6.3 % (3.8-10.2); NEUT % 80.7 % (42.8-82.8); PLATELET COUNT 438 K/MM3 (134-434); RBC 4.53 M/mm3 (3.60-5.2); RDW 17.8 % (11.6-15.6); WHITE BLOOD COUNT 14.3 K/mm3 (4.0-10.0)
[2017-09-11 08:15] LABS: INR 1.11 (0.82-1.09); PROTHROMBIN TIME (PATIENT) 12.5 SEC (9.98-11.88)
[2017-09-11 08:22] LABS: ALBUMIN 3.1 g/dl (3.4-5.0); ANION GAP 10 (8-16); BLOOD UREA NITROGEN 4 mg/dL (7-18); CALCIUM 8.8 mg/dL (8.5-10.1); CHLORIDE 103 mmol/L (98-107); CO2 25 mmol/L (21-32); GLUCOSE,RANDOM 92 mg/dL (74-106); POTASSIUM 3.4 mmol/L (3.5-5.1); SODIUM 138 mmol/L (136-145)
[2017-09-11 08:25] LABS: ALK PHOS 171 U/L (45-117); BILIRUBIN,TOTAL 0.4 mg/dL (0.2-1.0); CHOLESTEROL 125 mg/dL (50-200); CREATININE 0.4 mg/dL (0.55-1.02); HDL CHOLESTEROL 69 mg/dL (40-60); LDL CHOLESTEROL (ONLY SJRH) 39 mg/dL (5-100); SGOT/AST 14 U/L (15-37); SGPT/ALT 16 U/L (12-78); TOT PROT 7.2 g/dl (6.4-8.2); TRIGLYCERIDES 51 mg/dL (35-160)
--- NOTE | 2017-09-11 09:20 | EKG ---
Test Reason : Blood Pressure : / mmHG Vent. Rate : 066 BPM Atrial Rate : 066 BPM P-R Int : 116 ms QRS Dur : 084 ms QT Int : 436 ms P-R-T Axes : 014 066 050 degrees QTc Int : 457 ms NORMAL SINUS RHYTHM ANTERIOR INFARCT , AGE UNDETERMINED WITH CHEST PAIN PRESENCE, CONSIDER ACUTE ISCHMIA MARKED T WAVE ABNORMALITY, CONSIDER ANTERIOR ISCHEMIA ABNORMAL ECG WHEN COMPARED WITH ECG OF 03-FEB-2017 05:07, T WAVE INVERSION NO LONGER EVIDENT IN INFERIOR LEADS T WAVE INVERSION NOW EVIDENT IN ANTERIOR LEADS Confirmed by LEVI ARREOLA, ABHIJEET ([id number]) on 09/11/2017 9:20:03 AM Referred By: Confirmed By:ABHIJEET SIMS MD
[2017-09-11] MEDS ORDERED: THIAMINE HCL 200 MG/2 ML VIAL IVPB SCH (10:00)
--- NOTE | 2017-09-11 10:17 | CONSULT ---
Consult Detox [facility] Reason for Current Admission/Consult: alcohol use disorder, detox regimen Referred by:: denia roberson - History History of Present Illness: 42 yo f w chronic alcoholism and pancreatitis in past, admitted with recurrence acute pancreatitis from alcohol binge drinking over holidays. drinks daily and has alcohol withdrawl sx when she does not drink, reports consuming multiple bottles of tequila over the course of the weekend. Three days prior to admission, pt endorses onset of band-like LUQ abdominal pain, radiating to back. toelrting libirum detox protocol as ordered. - History Source History Provided By: Patient, Medical Record, Caregiver Limitations to Obtaining History: No Limitations - Alcohol/Substance Use Hx Alcohol Use: Yes (several pints alcohol over holidays) Hx Substance Use: No Hx Substance Use Treatment: No - Current Drug/Alcohol Use Alcohol Route: Oral Frequency: Daily Amount used: 2-3 pints Age of first use: 15 Date of Last Use: 09/09/17 - Past Medical History Gastrointestinal: Yes: Pancreatitis ...LMP: 01/19/17 Psych: Yes: Addictions (Alcoholism) - Significant Medical Findings: 42 yo f with h/o chornnic alcoholism and pancreatitis admitted w acute pancreatitis after alcohol binge over holidays requiring inpatietn detoxification and pain management. medically stable at si time. CIWA Score - CIWA Score Nausea/Vomitin-Mild Nausea/No Vomiting Muscle Tremors: 1-None Visible, but [place] Anxiety: 1-Mildly Anxious Agitation: 1-Slight > Activity Paroxysmal Sweats: No Perspiration Orientation: 0-Oriented Tacttile Disturbances: 0-None Auditory Disturbances: 0-None Visual Disturbances: 0-None Headache: 0-None Present CIWA-Ar Total Score: 4 Assessment Plan - Diagnosis (1) Abnormal liver function test Status: Acute (2) Alcohol dependence with uncomplicated withdrawal Status: Acute (3) Pancreatitis, acute Status: Acute Qualifiers: Pancreatitis type: alcohol induced Acute pancreatitis complication: uninfected necrosis Qualified Code(s): K85.21 - Alcohol induced acute pancreatitis with uninfected necrosis - Plan Plan: chart, labs, imaging reveiwed, case discussed with medical team, patient examined and history taken. 42 yo f admitted with acute on chronic pancreatitis after alcohol binge requirign inaptient detoxification and adequate pain managment. tolerating libirum. patient may go to rehab if she has apporpriate insurance after completing detox in hospital. Aries Lott MD [phone] - Medication Detox Regimen/Protocol: Luz
[2017-09-11] MEDS: chlordiazePOXIDE HCL 25 MG CAPSULE PO SCH ×3 (10:47→23:01)
[2017-09-11] MEDS: HEPARIN NA (PORCINE) 5,000 UNITS/ML 1ML VIAL SQ SCH ×3 (11:19→23:00)
[2017-09-11] MEDS ORDERED: morphine CARPU-JECT 10 MG/1 ML DISP.SYRIN IVPUSH PRN (11:21)
[2017-09-11] MEDS ORDERED: ONDANSETRON *ODT* 4 MG TABLET SL PRN (11:26)
[2017-09-11] MEDS ORDERED: ZOLPIDEM TARTRATE 5 MG TABLET PO PRN (11:29)
--- NOTE | 2017-09-11 12:13 | CON.GI ---
Consult Consult Specialty:: GI Referred by:: Hospitalist Reason for Consultation:: Abominal pain - History of Present Illness History of Present Illness: 42 year old woman admitted through [facility] ER yesterday evening for eval of abdominal pain. The pain had started this past saturday, located in the upper abdomen radiating to both shoulders and became progressively worse prompting her ER visit last night. She was noted to have a leukocytosis, elevated lipase. CT scan revealed dilated intrahepatics, calcifications within the pancreas, inflammatory changes around he pancreas and an 8.8cm LUQ fluid collection. She was admitted 02/16 for abdominal pain and had hempperitoneum secondary to splenic rupture. She was taken to the OR by Dr. Oviedo and underwent splenectomy, evacuation of hemoperitoneum as well as repair of chronically incarcerated ventral hernia. 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 She is also an alcoholic, with a history of drinking 1/2-1 L of Tequila daily for about three years. Since her admission in 02/16 she described cutting down however began drinking more heavily of late. She says her last drink was . She gives a history of pancreatitis, first occurring about 2 years ago and treated at [facility]. She received morphine this morning however upon evaluation this afternoon she was found sleeping on her abdomen and appeared comfortable. She currently denies abdominal pain, fevers/ chills. - History Source History Provided By: Patient Limitations to Obtaining History: No Limitations - Past Medical History Gastrointestinal: Yes: Pancreatitis ...LMP: 01/19/17 Psych: Yes: Addictions (Alcoholism) - Past Surgical History Past Surgical History: Yes: Hernia Repair (02/16), 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) - Alcohol/Substance Use Hx Alcohol Use: Yes History of Substance Use: reports: Marijuana - Smoking History Smoking history: Current every day smoker Have you smoked in the past 12 months: No Aproximately how many cigarettes per day: 8 - Social History Usual Living Arrangement: Alone ADL: Independent 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 Place of : [facility] History of Recent Travel: No Home Medications - Allergies Allergies/Adverse Reactions: Allergies Allergy/AdvReac Type Severity Reaction Status Date / Time No Known Allergies Allergy Verified 09/10/17 19:57 - Home Medications Home Medications: Ambulatory Orders NK [No Known Home Medication] 09/10/17 Family Disease History - Family Disease History Family Disease History: Other: Father (does not know his medical history), Mother (alive: healthy), Brother ( in infancy: crib ), Daughter (1 healthy daughter) Review of Systems - Review of Systems Constitutional: denies: Chills, Fever, Unintentional Wgt. Loss Cardiovascular: denies: Chest Pain Respiratory: denies: SOB Gastrointestinal: reports: Abdominal Pain, Nausea. denies: Vomiting Physical Exam-GI Vital Signs: Vital Signs Temperature 97.9 F 09/11/17 07:00 Pulse Rate 65 09/11/17 07:00 Respiratory Rate 16 09/11/17 07:00 Blood Pressure 175/93 09/11/17 07:00 O2 Sat by Pulse Oximetry (%) 99 09/11/17 07:00 Constitutional: Yes: Calm Eyes: No: Sclera Icterus Cardiovascular: Yes: Regular Rate and Rhythm. No: Murmur Respiratory: Yes: CTA Bilaterally Gastrointestinal Inspection: Yes: Scars (midline vertical surgical scar). No: Distention ...Auscultate: Yes: Normoactive Bowel Sounds ...Palpate: No: Hepatomegaly, Tenderness ...Percussion: No: Tympanitic Edema: No (No LE edema) Neurological: Yes: Alert, Oriented Labs: CBC, BMP 09/11/17 06:00 09/11/17 06:00 INR, PTT INR 1.11 (0.82-1.09) 09/11/17 06:00 Hepatic Panel Total Bilirubin 0.4 mg/dL (0.2-1.0) 09/11/17 06:00 AST 14 U/L (15-37) L D 09/11/17 06:00 ALT 16 U/L (12-78) 09/11/17 06:00 Alkaline Phosphatase 171 U/L (45-117) H 09/11/17 06:00 Albumin 3.1 g/dl (3.4-5.0) L 09/11/17 06:00 Imaging - Results Cat Scan: Report Reviewed, Image Reviewed Ultrasound: Report Reviewed Problem List - Problems (1) Pancreatitis, acute Assessment/Plan: Suspect acute on chronic calcific pancreatitis likely with sequela of psudocyst adjacent to the tail lof the pancreas Clinically improved and pain free Advise: Continue IV hydration Trial of clears Will need outpatient follow-up if she continues to clinically improve. I would recommend follow-up at an institution that has hepaticopancreatic service and where EUS can be performed such as at [facility]. Dr. William Gaspar is a hepaticopancreatic surgeon who works up at [facility]. His office can be contacted and follow-up can be arranged [phone] Local follow-up can be arranged as well. Referral arranged with Dr. Waite as I am not currently seeing outpatients Advised strict alcohol cessation. She has continued drinking since her last admission. We discussed the perils of continued alcohol cessation such as debilitating complications of pancreatic disease, cirrhosis and . Ordered triple phase CT scan of the abdomen and pelvis with MRCP to further evaluate biliary tract, fluid collection and pancreatic parenchyma. Code(s): K85.90 - ACUTE PANCREATITIS WITHOUT NECROSIS OR INFECTION, UNSP Qualifiers: Pancreatitis type: alcohol induced Acute pancreatitis complication: uninfected necrosis Qualified Code(s): K85.21 - Alcohol induced acute pancreatitis with uninfected necrosis
[2017-09-11 13:11] VITALS: BMI 16.7
[2017-09-11] MEDS: PRENATAL VITAMINS W/ FOLIC ACID TABLET (FP) PO SCH (14:32)
[2017-09-11] MEDS: PANTOPRAZOLE 40 MG TABLET (FP) PO SCH (14:32)
[2017-09-11] MEDS: NAPROXEN 500 MG TABLET (FP) PO SCH ×2 (14:32→23:00)
[2017-09-11] MEDS: POTASSIUM CHLORIDE TABS 20 MEQ TABLET.ER (FP) PO SCH ×2 (14:32→23:00)
[2017-09-11] MEDS ORDERED: FLU VACCINE QUAD 60 MCG/0.5 ML (MDV 17-18) IM ONE (16:00)
[2017-09-11] MEDS ORDERED: NADOLOL 20 MG TABLET (FP) ONE (16:59)
[2017-09-11] MEDS: NADOLOL 40 MG TABLET (FP) PO SCH (17:03)
--- NOTE | 2017-09-11 18:36 | PN ---
Teaching Attending Note Name of Resident: Lisa Crowley ATTENDING PHYSICIAN STATEMENT I saw and evaluated the patient. I reviewed the resident's note and discussed the case with the resident. I agree with the resident's findings and plan as documented. SUBJECTIVE: no fever or chills. Abd pain improved OBJECTIVE: NAD Cv : RRR Lungs : CATB Abd: soft, voluntary guarding, TTP in epigastric area ( very mild) , nl BS . no rebound tenderenss Ext: no edema ASSESSMENT AND PLAN: 42 y/o lady with h/o alcohol abuse, h/o acute pancreatitis who presented with Abd pain, and was found to have acute pancreatitis 1- Acute pancreatitis , with evidence of calcifications indicating chronci pancreatitis . Psudocyst was also seen - cont morphine - clears -appreciate GI help, triple phase CT and MRCP - clears - Cont IVF - f//u as out pt at [facility] for EUS 2- HTN urgency : due to pain , and possibly undiagnosed chronci HTN - start BB , labetalol to start in am - can decrease IVF in am 3- L ranl cyst: f/u as out pt . pt made aware 4- R hepatic cyst : CT and MRCP pending . also yris out pt follow up 5- ALcohol abuse : detox with librium 6- Asplenia : receive one dose of meningiococcal vaccine in March, but never followed up . at [place] might have to start vaccine series again
--- NOTE | 2017-09-11 20:48 | PN ---
Physical Exam: SUBJECTIVE: Patient seen and examined. States abdominal pain is well controlled. No n/v/, fever, or chills. OBJECTIVE: Vital Signs Period Temp Pulse Resp BP Sys/Mccann Pulse Ox Last 24 Hr 97.9 F-98.1 F 63-66 16-18 168-183/86-98 99-99 GENERAL: lying comfortable in bed, nad, aaox3 HEAD: Normal with no signs of trauma. EYES: PERRL, EOMI, sclera anicteric, conjunctiva clear ENT: ropharynx clear without exudates, MMM NECK: supple, no cervical LAD LUNGS: CTAB HEART: rrr, normal s1/s2, no m/r/g, mno JVD ABDOMEN: Soft, non-distended, mild epigastric ttp, -rebound/guarding, normoactive BS LOWER EXTREMITIES: 2+ DP pulses, wwp, no edema CBC, BMP 09/11/17 06:00 09/11/17 06:00 Hepatic Panel Total Bilirubin 0.4 mg/dL (0.2-1.0) 09/11/17 06:00 AST 14 U/L (15-37) L D 09/11/17 06:00 ALT 16 U/L (12-78) 09/11/17 06:00 Alkaline Phosphatase 171 U/L (45-117) H 09/11/17 06:00 Albumin 3.1 g/dl (3.4-5.0) L 09/11/17 06:00 Troponin, BNP 09/10/17 09/11/17 20:27 06:00 Troponin I < 0.02 < 0.02 Imaging: CT A/P (09/10/17): Comparison: Prior CT scan of the abdomen pelvis dated 02/07/2017 IMPRESSION: Findings consistent with acute pancreatitis. Punctate calcific densities in the pancreatic head compatible with chronic pancreatitis. Mild dilatation of the central intrahepatic bile ducts and mild dilatation of the common hepatic duct. Normal-appearing gallbladder. Stable simple cyst in the right hepatic lobe. Large well-circumscribed cystic density in the left upper quadrant measuring 8.8 cm patient is status post splenectomy. 2 small cystic densities along lateral margin of the left renal upper pole that may represent pseudocysts. One of them may represent a left renal subcapsular collection Continued close follow-up CT scan of the abdomen pelvis with oral and intravenous contrast is recommended. Abdominal U/S (09/11/17): IMPRESSION: Findings consistent with acute pancreatitis. Punctate calcific densities in the pancreatic head compatible with chronic pancreatitis. Mild dilatation of the central intrahepatic bile ducts and mild dilatation of the common hepatic duct. Normal-appearing gallbladder. Stable simple cyst in the right hepatic lobe. Large well-circumscribed cystic density in the left upper quadrant measuring 8.8 cm patient is status post splenectomy. 2 small cystic densities along lateral margin of the left renal upper pole that may represent pseudocysts. One of them may represent a left renal subcapsular collection Continued close follow-up CT scan of the abdomen pelvis with oral and intravenous contrast is recommended. Active Medications Chlordiazepoxide HCl (Librium -) 50 mg PO [id number] [facility] Stop: 09/12/17 05:01 Last Admin: 09/11/17 17:03 Dose: 50 mg Chlordiazepoxide HCl (Librium -) 25 mg PO [id number] [facility] Stop: 09/13/17 05:01 Chlordiazepoxide HCl (Librium -) 15 mg PO [id number] [facility] Stop: 09/14/17 05:01 Chlordiazepoxide HCl (Librium -) 25 mg PO Q4H PRN PRN Reason: WITHDRAWAL(CONT SUBST) Stop: 09/14/17 01:35 Heparin Sodium (Porcine) (Heparin -) 5,000 unit SQ TID [facility] Last Admin: 09/11/17 14:31 Dose: 5,000 unit Lactated Ringer's (Lactated Ringers Solution) 1,000 ml in 1,000 mls @ 150 mls/ hr IV ASDIR [facility] Last Admin: 09/11/17 12:05 Dose: 150 mls/hr Morphine Sulfate (Morphine Injection -) 3 mg IVPUSH Q4H PRN PRN Reason: PAIN Nadolol (Corgard -) 40 mg PO DAILY [facility] Last Admin: 09/11/17 17:03 Dose: 40 mg Naproxen (Naprosyn -) 500 mg PO BID [facility] Last Admin: 09/11/17 14:32 Dose: 500 mg Ondansetron HCl (Zofran Odt -) 8 mg SL Q6H PRN PRN Reason: NAUSEA AND/OR VOMITING Pantoprazole Sodium (Protonix -) 40 mg PO DAILY [facility] Last Admin: 09/11/17 14:32 Dose: 40 mg Potassium Chloride (K-Dur -) 20 meq PO BID [facility] Last Admin: 09/11/17 14:32 Dose: 20 meq Multivit/Folic Acid/Iron ( Vitamins (Sjr) -) 1 tab PO DAILY [facility] Last Admin: 09/11/17 14:32 Dose: 1 tab Thiamine HCl (Vitamin B1 -) 100 mg PO HS [facility] Zolpidem Tartrate (Ambien -) 10 mg PO HS PRN PRN Reason: INSOMNIA ASSESSMENT/PLAN: 42yo woman with PMH of ETOH abuse, 2x prior pancreatitis in 2015 and January 2017 who p/w 3xday of abdominal pain/poor PO intake and 1x day NBNB emesis after recent drinking binge on JAYDE and found to have acute pancreatitis #acute on chronic pancreatitis; elevated lipase, imaging findings; Alk phos elevated (180), LFT wnl -GI consulted. Appreciated recommendations. Will arrange f/u at [facility] -IVFs (LR 150cc/hr) -Morphine 3mg IV Q4h -Diet advanced to Clears -f/u Abdominal MRI #Alcohol abuse - 7-8 drinks per night; most recent alcohol use was 09/02, s/p 1 banana bag -Detox consult -Started Librium/CIWA protocol -thiamine, folic acid, MVI #HTN urgency -patient started on BB -may decrease fluids in AM #Asplenia -Pt requires 2nd of meningoccal vaccine #Leukocytosis - likely reactive to inflammatory process; afebrile - Trend WBC, fever curve - Monitor for infectious symptoms #R Hepatic cyst -pt made aware, will f/u O/P #L Renal Cyst - pt made aware, will f/u O/P #DVT SCDs - Heparin RID #FEN: LR@150 / lytes wnl / Na controlled Clears d/w Dr. Brielle Crowley MD PGY1 - Internal Medicine Visit type - Emergency Visit Emergency Visit: No - New Patient This patient is new to me today: Yes Date on this admission: 09/11/17 - Critical Care Critical Care patient: No
[2017-09-11] MEDS: THIAMINE HCL 100 MG TABLET (FP) PO SCH (23:00)
[2017-09-12] MEDS: chlordiazePOXIDE HCL 25 MG CAPSULE PO SCH ×4 (06:16→22:28)
[2017-09-12] MEDS: LACTATED RINGERS SOLUTION 1,000 ML/1,000 ML INFUS.BAG IV SCH (06:17)
[2017-09-12] MEDS: HEPARIN NA (PORCINE) 5,000 UNITS/ML 1ML VIAL SQ SCH ×3 (06:19→22:25)
--- NOTE | 2017-09-12 07:06 | PN ---
Physical Exam: SUBJECTIVE: Patient seen and examined. Initially could not be found on floor. Had gone downstairs to find candy. Tolerated Clears dinner w/o n/v/abdominal pain. No fever or chills. OBJECTIVE: Vital Signs Period Temp Pulse Resp BP Sys/Mccann Pulse Ox Last 24 Hr 97.9 F-98.4 F 60-74 16-18 132-183/85-98 99-100 GENERAL: thin woman, ambulating with IV pole, nad, aaox3 HEAD: Normal with no signs of trauma. EYES: sclera anicteric, conjunctiva clear ENT: oropharynx clear without exudates, MMM NECK: supple, no cervical LAD LUNGS: CTAB HEART: rrr, normal s1/s2, no m/r/g, mno JVD ABDOMEN: Soft, ntnd, normoactive BS LOWER EXTREMITIES: 2+ DP pulses, wwp, no edema Laboratory Results - last 24 hr 09/11/17 09/11/17 09/11/17 06:00 06:00 06:00 WBC 14.3 H RBC 4.53 Hgb 12.8 Hct 40.5 MCV 89.5 MCH 28.3 MCHC 31.6 L RDW 17.8 H Plt Count 438 H MPV 8.9 Neutrophils % 80.7 Lymphocytes % 12.6 Monocytes % 6.3 Eosinophils % 0.2 Basophils % 0.2 PT with INR 12.50 H INR 1.11 Sodium 138 Potassium 3.4 L Chloride 103 Carbon Dioxide 25 Anion Gap 10 BUN 4 L Creatinine 0.4 L Creat Clearance w eGFR > 60 Random Glucose 92 D Hemoglobin A1c % Calcium 8.8 Total Bilirubin 0.4 AST 14 L D ALT 16 Alkaline Phosphatase 171 H Creatine Kinase 54 Troponin I < 0.02 Total Protein 7.2 Albumin 3.1 L Triglycerides 51 D Cholesterol 125 Total LDL Cholesterol 39 HDL Cholesterol 69 H D Tumor Marker AFP 09/11/17 09/11/17 06:00 06:00 WBC RBC Hgb Hct MCV MCH MCHC RDW Plt Count MPV Neutrophils % Lymphocytes % Monocytes % Eosinophils % Basophils % PT with INR INR Sodium Potassium Chloride Carbon Dioxide Anion Gap BUN Creatinine Creat Clearance w eGFR Random Glucose Hemoglobin A1c % 5.3 D Calcium Total Bilirubin AST ALT Alkaline Phosphatase Creatine Kinase Troponin I Total Protein Albumin Triglycerides Cholesterol Total LDL Cholesterol HDL Cholesterol Tumor Marker AFP 4.6 Active Medications Chlordiazepoxide HCl (Librium -) 25 mg PO Q8D-USQ [facility] Stop: 09/13/17 05:01 Chlordiazepoxide HCl (Librium -) 15 mg PO [id number] [facility] Stop: 09/14/17 05:01 Chlordiazepoxide HCl (Librium -) 25 mg PO Q4H PRN PRN Reason: WITHDRAWAL(CONT SUBST) Stop: 09/14/17 01:35 Heparin Sodium (Porcine) (Heparin -) 5,000 unit SQ TID [facility] Last Admin: 09/12/17 06:19 Dose: 5,000 unit Lactated Ringer's (Lactated Ringers Solution) 1,000 ml in 1,000 mls @ 150 mls/ hr IV ASDIR [facility] Last Admin: 09/12/17 06:17 Dose: 150 mls/hr Morphine Sulfate (Morphine Injection -) 3 mg IVPUSH Q4H PRN PRN Reason: PAIN Nadolol (Corgard -) 40 mg PO DAILY [facility] Last Admin: 09/11/17 17:03 Dose: 40 mg Naproxen (Naprosyn -) 500 mg PO BID [facility] Last Admin: 09/11/17 23:00 Dose: 500 mg Ondansetron HCl (Zofran Odt -) 8 mg SL Q6H PRN PRN Reason: NAUSEA AND/OR VOMITING Pantoprazole Sodium (Protonix -) 40 mg PO DAILY [facility] Last Admin: 09/11/17 14:32 Dose: 40 mg Potassium Chloride (K-Dur -) 20 meq PO BID [facility] Last Admin: 09/11/17 23:00 Dose: 20 meq Multivit/Folic Acid/Iron ( Vitamins (Sjr) -) 1 tab PO DAILY [facility] Last Admin: 09/11/17 14:32 Dose: 1 tab Thiamine HCl (Vitamin B1 -) 100 mg PO HS [facility] Last Admin: 09/11/17 23:00 Dose: 100 mg Zolpidem Tartrate (Ambien -) 10 mg PO HS PRN PRN Reason: INSOMNIA ASSESSMENT/PLAN: 42yo woman with PMH of ETOH abuse, 2x prior pancreatitis in 2015 and January 2017 who p/w 3xday of abdominal pain/poor PO intake and 1x day NBNB emesis after recent drinking binge on JAYDE and found to have acute pancreatitis. #acute on chronic pancreatitis; elevated lipase, imaging findings; Alk phos elevated (180), LFT wnl -GI consulted. Appreciated recommendations. Will arrange f/u at [facility] -continue IVFs, will advance diet and d/c fluids if tolerated -d/c Morphine 3mg IV Q4h -f/u Abdominal MRI #Alcohol abuse - 7-8 drinks per night; most recent alcohol use was 09/02, s/p 1 banana bag -Detox consult. c/w Librium protocol -thiamine, folic acid, MVI #HTN urgency, resolved -start Labetolol 100mg BID #Asplenia -received Influenza vaccine this admission -Restart Meningoccal A vaccine #Leukocytosis - likely reactive to inflammatory process; afebrile - Trend WBC, fever curve - Monitor for infectious symptoms #R Hepatic cyst -pt made aware, will f/u O/P #L Renal Cyst - pt made aware, will f/u O/P #DVT SCDs - Heparin TID #FEN: LR@150 / lytes wnl / Na controlled Clears d/w Dr. Brielle Crowley MD PGY1 - Internal Medicine Visit type - Emergency Visit Emergency Visit: No - New Patient This patient is new to me today: No - Critical Care Critical Care patient: No
[2017-09-12 07:49] LABS: HEMATOCRIT 44.6 % (32.4-45.2); MCH 28.3 pg (25.7-33.7); MCHC 31.3 g/dl (32.0-36.0); MEAN CELL VOLUME 90.3 fl (80-96); MEAN PLT VOLUME 9.2 fl (7.5-11.1); PLATELET COUNT 441 K/MM3 (134-434); RBC 4.94 M/mm3 (3.60-5.2); RDW 18.2 % (11.6-15.6)
[2017-09-12 08:08] LABS: ANION GAP 7 (8-16); BLOOD UREA NITROGEN 5 mg/dL (7-18); CALCIUM 8.9 mg/dL (8.5-10.1); CHLORIDE 104 mmol/L (98-107); CO2 27 mmol/L (21-32); CREATININE 0.4 mg/dL (0.55-1.02); GLUCOSE,RANDOM 76 mg/dL (74-106); POTASSIUM 4.1 mmol/L (3.5-5.1); SODIUM 138 mmol/L (136-145)
[2017-09-12] MEDS: POTASSIUM CHLORIDE TABS 20 MEQ TABLET.ER (FP) PO SCH (10:23)
[2017-09-12] MEDS: PRENATAL VITAMINS W/ FOLIC ACID TABLET (FP) PO SCH (10:23)
[2017-09-12] MEDS: PANTOPRAZOLE 40 MG TABLET (FP) PO SCH (10:23)
[2017-09-12] MEDS: NAPROXEN 500 MG TABLET (FP) PO SCH (10:24)
[2017-09-12] MEDS: NADOLOL 40 MG TABLET (FP) PO SCH (10:24)
--- NOTE | 2017-09-12 11:34 | PN ---
GI Progress Note Subjective: Found sitting up going through menu options No abdominal pain - Objective Vital Signs: Vital Signs Temperature 98.3 F 09/12/17 05:55 Pulse Rate 74 09/12/17 05:55 Respiratory Rate 18 09/12/17 05:55 Blood Pressure 132/85 09/12/17 05:55 O2 Sat by Pulse Oximetry (%) 100 09/12/17 09:00 Constitutional: Calm Eyes: No: Sclera Icterus Cardiovascular: Yes: Regular Rate and Rhythm Respiratory: Yes: CTA Bilaterally Gastrointestinal Inspection: No: Distention ...Auscultate: Yes: Normoactive Bowel Sounds ...Palpate: Yes: Soft (somewhat protuberant). No: Tenderness ...Percussion: No: Tympanitic Edema: No (No LE edema) Neurological: Yes: Alert, Oriented Labs: CBC, BMP 09/12/17 06:00 09/12/17 06:00 INR, PTT INR 1.11 (0.82-1.09) 09/11/17 06:00 Hepatic Panel Total Bilirubin 0.4 mg/dL (0.2-1.0) 09/11/17 06:00 AST 14 U/L (15-37) L D 09/11/17 06:00 ALT 16 U/L (12-78) 09/11/17 06:00 Alkaline Phosphatase 171 U/L (45-117) H 09/11/17 06:00 Albumin 3.1 g/dl (3.4-5.0) L 09/11/17 06:00 Problem List - Problems (1) Pancreatitis, acute Assessment/Plan: Likely acute on chronic now with sequela of suspected pseudocyst at the tail of the pancreas Clinically improved Advise: Complete alcohol cessation Trial of low fat diet Call to arrange follow-up at [facility] for Ms. Olguin as outlined in yesterday's progress note Awaiting MRI/MRCP read. yesterday's progress note should have read triple phase MRI of abdomen with MRCP, not CT Monitor for etoh withdrawal Code(s): K85.90 - ACUTE PANCREATITIS WITHOUT NECROSIS OR INFECTION, UNSP Qualifiers: Pancreatitis type: alcohol induced Acute pancreatitis complication: uninfected necrosis Qualified Code(s): K85.21 - Alcohol induced acute pancreatitis with uninfected necrosis
[2017-09-12] MEDS ORDERED: LABETALOL HCL 100 MG TABLET (FP) PO SCH (13:30)
[2017-09-12] MEDS ORDERED: ACETAMINOPHEN 325 MG TABLET (FP) PO PRN (15:27)
[2017-09-12] MEDS ORDERED: [UNRECOGNIZED DRUG - OTHER] IM ONE (15:30)
--- NOTE | 2017-09-12 16:54 | PN ---
Progress Note (short form) - Note Progress Note: Spoke with Ms. Olguin re: MRI reading. Explained that there is a possible tumor vs. ? inflammatory phlegmon at the head of the pancreas from a pancreatitis. I did explain that it could reflect a pancreatic cancer however further evaluation will be needed to exclude/rule this in via tissue diagnosis. EUS would likely be best choice at this point as opposed to ERCP and given that Ms. Olguin allowed her insurance to lapse, outpatient evaluation would likely be challenging. Concern would also be for the development of obstructive jaundice. I therefore [facility] as opposed to outpatient. I spoke with Ms. Olguin regarding this and she is onboard. I let Dr. Hannah know about the MRI findings and the plan for transfer. Problem List - Problems (1) Pancreatitis, acute Code(s): K85.90 - ACUTE PANCREATITIS WITHOUT NECROSIS OR INFECTION, UNSP Qualifiers: Pancreatitis type: alcohol induced Acute pancreatitis complication: uninfected necrosis Qualified Code(s): K85.21 - Alcohol induced acute pancreatitis with uninfected necrosis
[2017-09-12] MEDS ORDERED: NAPROXEN 500 MG TABLET (FP) PO PRN (17:45)
--- NOTE | 2017-09-12 17:48 | PN ---
Teaching Attending Note Name of Resident: Lisa Crowley ATTENDING PHYSICIAN STATEMENT I saw and evaluated the patient. I reviewed the resident's note and discussed the case with the resident. I agree with the resident's findings and plan as documented. SUBJECTIVE: seen at 11 am No fever or chills. no abd apin , feels much better OBJECTIVE: NAD Cv : RRR Lungs : CATB Abd: soft, NT ,ND , NL BS , mid line old surgical scar ASSESSMENT AND PLAN: 42 y/o lady with h/o alcohol abuse, h/o acute pancreatitis who presented with Abd pain, and was found to have acute pancreatitis 1- Acute pancreatitis , with evidence of calcifications indicating chronic pancreatitis . Psudocyst was also seen. MRCP reviewed and d/w Dr. Webber. need to r/o pancreatic mass/cancer will[facility] to arrange fro transfer dc morphine started soft low fat diet which she tolerated 2- HTN urgency: resolved - cont BB - dc IVF 3- L renl cyst: f/u as out pt . pt made aware 4- 2.3 cm hepatic cyst :f/u 5- ALcohol abuse : detox with librium 6- Asplenia : - give meningiococcal vaccine first dose - need f/u as out pt for next dose - given flu vaccine yesterday - given pneumococcal and Hib last admission will start transfer process to [facility]
[2017-09-12] MEDS: THIAMINE HCL 100 MG TABLET (FP) PO SCH (22:28)
[2017-09-12] MEDS: LABETALOL HCL 100 MG TABLET (FP) PO SCH (22:28)
[2017-09-13] MEDS: chlordiazePOXIDE HCL 25 MG CAPSULE PO SCH (06:22)
--- NOTE | 2017-09-13 06:56 | PN ---
Physical Exam: SUBJECTIVE: Patient seen and examined OBJECTIVE: Vital Signs Period Temp Pulse Resp BP Sys/Mccann Pulse Ox Last 24 Hr 97.2 F-98.5 F 83-103 18-20 95-134/61-96 98-100 GENERAL: The patient is awake, alert, and fully oriented, in no acute distress. HEAD: Normal with no signs of trauma. EYES: PERRL, extraocular movements intact, sclera anicteric, conjunctiva clear. No ptosis. ENT: Ears normal, nares patent, oropharynx clear without exudates, moist mucous membranes. NECK: Trachea midline, full range of motion, supple. LUNGS: Breath sounds equal, clear to auscultation bilaterally, no wheezes, no crackles, no accessory muscle use. HEART: Regular rate and rhythm, S1, S2 without murmur, rub or gallop. ABDOMEN: Soft, nontender, nondistended, normoactive bowel sounds, no guarding, no rebound, no hepatosplenomegaly, no masses. EXTREMITIES: 2+ pulses, warm, well-perfused, no edema. NEUROLOGICAL: Cranial nerves II through XII grossly intact. Normal speech, gait not observed. PSYCH: Normal mood, normal affect. SKIN: Warm, dry, normal turgor, no rashes or lesions noted Laboratory Results - last 24 hr 09/12/17 09/12/17 06:00 06:00 WBC 10.0 D RBC 4.94 Hgb 14.0 Hct 44.6 MCV 90.3 MCH 28.3 MCHC 31.3 L RDW 18.2 H Plt Count 441 H MPV 9.2 Sodium 138 Potassium 4.1 D Chloride 104 Carbon Dioxide 27 Anion Gap 7 L BUN 5 L D Creatinine 0.4 L Random Glucose 76 Calcium 8.9 Active Medications Acetaminophen (Tylenol -) 650 mg PO Q6H PRN PRN Reason: PAIN Last Admin: 09/12/17 15:34 Dose: 650 mg Chlordiazepoxide HCl (Librium -) 15 mg PO [id number] [facility] Stop: 09/14/17 05:01 Chlordiazepoxide HCl (Librium -) 25 mg PO Q4H PRN PRN Reason: WITHDRAWAL(CONT SUBST) Stop: 09/14/17 01:35 Heparin Sodium (Porcine) (Heparin -) 5,000 unit SQ TID [facility] Last Admin: 09/12/17 22:25 Dose: Not Given Labetalol HCl (Normodyne -) 100 mg PO BID [facility] Last Admin: 09/12/17 22:28 Dose: 100 mg Naproxen (Naprosyn -) 500 mg PO Q12H PRN PRN Reason: PAIN LEVEL 1-5 Ondansetron HCl (Zofran Odt -) 8 mg SL Q6H PRN PRN Reason: NAUSEA AND/OR VOMITING Multivit/Folic Acid/Iron ( Vitamins (Sjr) -) 1 tab PO DAILY [facility] Last Admin: 09/12/17 10:23 Dose: 1 tab Thiamine HCl (Vitamin B1 -) 100 mg PO HS [facility] Last Admin: 09/12/17 22:28 Dose: 100 mg Zolpidem Tartrate (Ambien -) 10 mg PO HS PRN PRN Reason: INSOMNIA ASSESSMENT/PLAN:
[2017-09-13] MEDS: HEPARIN NA (PORCINE) 5,000 UNITS/ML 1ML VIAL SQ SCH ×3 (07:21→21:12)
[2017-09-13 08:56] LABS: ALBUMIN 2.5 g/dl (3.4-5.0); ALK PHOS 165 U/L (45-117); BILIRUBIN,DIRECT < 0.2 mg/dL (0.0-0.2); BILIRUBIN,TOTAL 0.7 mg/dL (0.2-1.0); SGOT/AST 33 U/L (15-37); SGPT/ALT 22 U/L (12-78); TOT PROT 5.6 g/dl (6.4-8.2)
[2017-09-13] MEDS: PRENATAL VITAMINS W/ FOLIC ACID TABLET (FP) PO SCH (09:35)
[2017-09-13] MEDS: LABETALOL HCL 100 MG TABLET (FP) PO SCH (09:35)
[2017-09-13] MEDS ORDERED: chlordiazePOXIDE 5 MG CAPSULE PO SCH ×2 (11:00→14:25)
--- NOTE | 2017-09-13 14:29 | PN ---
[facility] Progress Note (SOAP) Subjective: patient reports no pain, no alcohol withdrawal sx Objective: 09/13/17 14:26 Vital Signs - 24 hr 09/12/17 09/12/17 09/12/17 15:13 18:35 21:00 Temperature 98.0 F 97.2 F L Pulse Rate 83 85 Respiratory 20 18 Rate Blood Pressure 134/96 109/72 O2 Sat by Pulse 98 Oximetry (%) 09/12/17 09/13/17 09/13/17 22:00 06:00 09:36 Temperature 98.5 F 98.1 F 98 F Pulse Rate 103 H 89 89 Respiratory 20 20 18 Rate Blood Pressure 115/61 95/62 99/54 O2 Sat by Pulse Oximetry (%) Laboratory Results - last 24 hr 09/13/17 09/13/17 06:35 06:35 Total Bilirubin 0.7 D Direct Bilirubin < 0.2 AST 33 D ALT 22 D Alkaline Phosphatase 165 H Total Protein 5.6 L D Albumin 2.5 L Lipase 1411 H abdo soft bs+ no rebound ro guarding, no tremorss or anxiety appears slightly sleepy Assessment: 09/13/17 14:27 alcohol withdrawal - cont detox, d/c prn librum, decreased dose from 15mg q6h to 10mg Patient can be d/c home today with prn libirum doses x6 10mg if she is medically stable for d/c. Pain controlled. Reji reports would like to be discharged today if possible d/w nursing staff.
--- NOTE | 2017-09-13 19:41 | PN ---
Teaching Attending Note Name of Resident: Lisa Crowley ATTENDING PHYSICIAN STATEMENT I saw and evaluated the patient. I reviewed the resident's note and discussed the case with the resident. I agree with the resident's findings and plan as documented. SUBJECTIVE: No fever or chills . has no abd pain. per RN she was found smoking in shower yesterday. Also this am she was found with unsteady gait and confused , even before nay benzos were given OBJECTIVE: NAD Cv: RRR Lungs : CATB Abd: soft, NT ,ND, NL BS, mid line old surgical scar ASSESSMENT AND PLAN: 42 y/o lady with h/o alcohol abuse, h/o acute pancreatitis who presented with Abd pain, and was found to have acute pancreatitis 1- Acute pancreatitis , with evidence of calcifications indicating chronic pancreatitis and Psudocyst MRCP reviewed and d/w Dr. Webber. need to r/o pancreatic mass/cancer case was d/w with [facility] MD and was accepted for transfer for further w/u cont low fat diet 2- HTN urgency: resolved . pt is now hypotensive on labetalol. elevated BP might have been due to pain. dc labetalol and monitor BP , might not have chronic HTN 3- transient confusion: no clear etiology, ? hypotension , ? drug use - check urine tox screen 4- L renal cyst: f/u as out pt . pt made aware 5- 2.3 cm hepatic cyst :f/u 6- ALcohol abuse : cont detox with librium 7- Asplenia : - gave meningiococcal vaccine first dose yesterday. will need another one in 2 months - given flu vaccine yesterday - given pneumococcal and Hib last admission transfer to [facility] when bed is available . ASSESSMENT AND PLAN:
[2017-09-13 20:29] LABS: COCAINE, UR NEGATIVE ng/ml (CUTOFF=300); METHADONE, UR NEGATIVE ng/ml (CUTOFF=300); OPIATES, URI NEGATIVE ng/ml (CUTOFF=300); PHENCYCLIDINE,URINE NEGATIVE ng/ml (CUTOFF=25); URINE AMPHETAMINES NEGATIVE ng/ml (CUTOFF=500); URINE BARBITURATES NEGATIVE ng/ml (CUTOFF=200)
[2017-09-13 20:34] LABS: URINE BENZODIAZEPINES POSITIVE ng/ml (CUTOFF=200)
--- NOTE | 2017-09-13 21:27 | DS ---
Physical Exam: SUBJECTIVE: Patient seen and examined. No fever, chills, abdominal pain. Tolerating regular diet. Voiding and ambulating well. OBJECTIVE: Vital Signs Period Temp Pulse Resp BP Sys/Mccann Pulse Ox Last 24 Hr 98 F-98.5 F 89-103 18-20 95-115/54-71 PHYSICAL EXAM GENERAL: thin woman, nad, aaox3 EYES: sclera anicteric, conjunctiva clear ENT: oropharynx clear without exudates, MMM NECK: supple, no cervical LAD LUNGS: CTAB HEART: rrr, normal s1/s2, no m/r/g, no JVD ABDOMEN: Soft, ntnd, normoactive BS LOWER EXTREMITIES: 2+ DP pulses, wwp, no edema LABS Laboratory Results - last 24 hr 09/13/17 09/13/17 09/13/17 06:35 06:35 17:30 Total Bilirubin 0.7 D Direct Bilirubin < 0.2 AST 33 D ALT 22 D Alkaline Phosphatase 165 H Total Protein 5.6 L D Albumin 2.5 L Lipase 1411 H Opiates Screen Negative Methadone Screen Negative Barbiturate Screen Negative Phencyclidine Screen Negative Ur Amphetamines Screen Negative MDMA (Ecstasy) Screen Negative Benzodiazepines Screen Positive Cocaine Screen Negative U Marijuana (THC) Screen Positive HOSPITAL COURSE: Date of Admission:09/11/17 Date of Discharge: 09/13/17 Pre-Hospital Course: 42yo woman with PMH of EtOH abuse, 2x prior pancreatitis (2015 and January 2017), asplenia s/p trauma, who p/w 3xdays of abdominal pain/poor PO intake and one day of N/V after recent binge drinking episode on JAYDE. Pt endorses drinking excessively over New 's Weekend (Sat - 09/02), consuming multiple bottles of tequila. Three days prior to admission, pt endorses onset of band-like LUQ abdominal pain, radiating to back and shoulders BL and decreased PO intake. Pt states the pain felt deep, persistent and was worsened by eating, deep breathing and laying on her back. She similarly endorsed multiple episodes of nonbilious emesis w/ nausea, notable for trace amounts of bright red blood. Pt has hx of two prior episodes pancreatitis in the past, and states she experienced similar symptoms both times after persistent drinking. She denies any fever/chills, BATES/dizziness, CP, SOB, cough, diarrhea, dysuria, rashes, bruising, pruritis or new neurologic symptoms. She does endorse constipation for the last three days. Pt denies any hx of chronic GI conditions or hx of HLD, autoimmune disease, gallstones, recent abdominal surgery, trauma. She does not take any chronic medications at home. ER course was notable for: (1)WBC 16.6 (2)Lipase 4794 Subsequent Hospital Course: Patient was found to have acute on chronic pancreatitis based on clinical symptoms, elevated lipase, and CT A/P imaging findings. GI was consulted. Patient was placed NPO and given LR fluids and morphine IV for pain control. Her clinical symptoms resolved within 1 day and her diet was slowly advanced. By discharge she was tolerating a regular low-fat diet. Abdominal MRI revealed a mass at the pancreatic head suspicious for cancer vs inflammatory phlegmon from pancreatitis. The patient was transferred to [facility] for EUS/FNA to to rule out pancreatic cancer. The patient was also started on a librium detox protocol. She was given thiamine , folate, and multivitamin supplementation as well. During the course of her admission she was found to be in hypertensive urgency ( SBP 183 ). She has no prior h/o hypertension and etiology could be 2/2 to alcohol withdrawal vs aggressive IVFs administered for pancreatitis vs pain. She was started on labetolol 100mg BID. However, her blood pressure went to SBP 90's and she was c/o dizziness. Labetolol was d/c, and her BP remained normotensive. Patient is s/p splenectomy in January 2017, and received the HIB, Prevnar, and 1st dose of Meningococcal A (Menactra) vaccines on prior admission. However, she failed to follow-up with her PCP for the 2nd dose of Menactra. During this admission she received the Influenza vaccine and Menactra. She was instructed to get the 2nd dose in two months, which she was in agreement. She reHowever, she did not f Avaccines. She received the first dose of t. influenza Incidental findings of R hepatic cyst and L renal cyst were discussed with the patient, and she was instructed get out-patient follow-up. Consults: GI - Dr. Aguilar Detox - Dr. Lott IMAGING: CT A/P (09/10/17): Comparison: Prior CT scan of the abdomen pelvis dated 02/07/2017 IMPRESSION: Findings consistent with acute pancreatitis. Punctate calcific densities in the pancreatic head compatible with chronic pancreatitis. Mild dilatation of the central intrahepatic bile ducts and mild dilatation of the common hepatic duct. Normal-appearing gallbladder. Stable simple cyst in the right hepatic lobe. Large well-circumscribed cystic density in the left upper quadrant measuring 8.8 cm patient is status post splenectomy. 2 small cystic densities along lateral margin of the left renal upper pole that may represent pseudocysts. One of them may represent a left renal subcapsular collection Continued close follow-up CT scan of the abdomen pelvis with oral and intravenous contrast is recommended. Abdominal U/S (09/11/17): IMPRESSION: Findings consistent with acute pancreatitis. Punctate calcific densities in the pancreatic head compatible with chronic pancreatitis. Mild dilatation of the central intrahepatic bile ducts and mild dilatation of the common hepatic duct. Normal-appearing gallbladder. Stable simple cyst in the right hepatic lobe. Large well-circumscribed cystic density in the left upper quadrant measuring 8.8 cm patient is status post splenectomy. 2 small cystic densities along lateral margin of the left renal upper pole that may represent pseudocysts. One of them may represent a left renal subcapsular collection Continued close follow-up CT scan of the abdomen pelvis with oral and intravenous contrast is recommended. Abdominal MRI w&w/o contrast (09/11/2017): No comparison MRI is available. Correlation is made with CT of the abdomen and pelvis dated September 10, 2017 FINDINGS: There is trace left-sided pleural effusion. The visualized inferior mediastinum is grossly unremarkable. -The liver is normal in size with no evidence of abnormal loss of signal on out of phase imaging to suggest fatty infiltration.vThere is no evidence of hepatic enhancing lesion. There is 2.3 cm posterior right hepatic lobe cyst with very thin septation. The patient status post splenectomy. -The pancreas is diffusely enlarged and heterogeneous with severe diffuse pancreatic ductal dilatation measuring up to 1 cm with some intraductal stones. There is a soft tissue like mass heterogeneously enhancing in the uncinate process/head junction measuring 4.0 x 2.8 cm. -There is a 9.2 x 9.4 x 9.0 cm left upper abdominal quadrant collection demonstrating intermediate T1 and high T2 signal with mildly thickened and enhancing wall but no internal septations or nodular components. Smaller satellite cystic collections of similar characteristics seen in the left upper abdominal quadrant. There is a 3.8 x 1.9 cm lobulated collection with thin internal septation and thick surrounding wall in the left upper renal pole, not seen on CT scan of January 2017. -The gallbladder is significantly and diffusely distended filled with sludge. The cystic duct is diffusely dilated measuring up to 7 mm. The CBD is diffusely dilated measuring up to 1.2 cm with sudden cut off in the region of the pancreatic head. There is mild intrahepatic biliary ductal dilatation. -The adrenal glands are unremarkable. The kidneys are symmetrically enhancing with no evidence of enhancing lesions. There is no hydronephrosis. -There are no abnormally dilated bowel loops. There is no abdominal ascites. Prominent peripancreatic and ninfa hepatis lymph nodes seen. -The visualized osseous structures are grossly unremarkable. IMPRESSION: Diffusely enlarged and markedly heterogeneous pancreas demonstrating diffuse pancreatic ductal dilatation with few intraductal stones in addition to peripancreatic edema consistent with acute on chronic pancreatitis. 4.0 x 2.8 cm masslike soft tissue structure in the pancreatic head/uncinate process junction resulting in pancreatic, CBD and cystic ductvobstruction with biliary and pancreatic ductal dilatation. Findings are suspicious for pancreatic neoplasm. Markedly distended gallbladder filled with sludge. Status post splenectomy. Large left upper abdominal quadrant collection cystic mass measuring up to 9.4 cm with adjacent smaller satellite cystic lesions in addition to 3.8 x 1.8 cm left upper renal pole cystic lesion with imaging characteristics suggestive of pseudocysts. Nonspecific peripancreatic and ninfa hepatis prominent lymph nodes. Trace left-sided pleural effusion. Minutes to complete discharge: 45 Discharge Summary Reason For Visit: ACTUE PANCREATITIS Current Active Problems Abnormal liver function test (Acute) Alcohol dependence with uncomplicated withdrawal (Acute) Condition: Fair - Instructions Diet, Activity, Other Instructions: You were admitted to the hospital for acute pancreatitis and for alcohol detox. You were started on a Librium taper for alcohol detox. You are being transferred to for further evaluation of the pancreatic mass that was found on imaging. -Please follow the recommendations of the doctors at regarding your diet and medications. It is very important that you stop drinking alcohol. Follow-ups: -You need to follow-up with a [employer] (stomach doctor) after you are discharged from . You can make an appointment with Dr. Waite who has an office in [place]. -Make an appointment with your primary care physician. It is very important that you receive the second dose of the Meningitis (Menactra) vaccine in 2 months. You had the first dose on 09/12/2017. You were also given the yearly Influenza vaccine on 09/11/17. -As discussed, you should let your primary care doctor know about a cyst seen in your liver and a cyst seen in your left kidney. These cysts need to be followed. Please return to the Emergency Department if you have worsening abdominal pain, can't keep any food down, have fever or chills, or any new or concerning symptoms. Referrals: Yovany Waite MD [Staff Physician] - Disposition: TRANSFER ACUTE CARE/OTHER HOSP - Home Medications Comprehensive Discharge Medication List: Ambulatory Orders Chlordiazepoxide [Librium -] 10 mg PO [id number] capsule MDD 30 09/13/17 Folic Acid 1 mg PO DAILY #1 tablet 09/13/17 Thiamine HCl [B-1] 100 mg PO DAILY #1 tablet 09/13/17 This patient is new to me today: No Emergency Visit: No Critical Care patient: No - Discharge Referral Referred to [facility] Med P.C.: No
[2017-09-13 21:58] VITALS: BP 120/71; PULSE 113; TEMP 97.5
== END 2017-09-13 23:15 | disposition short-term general hospital (02) | DRG 282 ==
LOC: JER 19:30 → JERBED 09-11 00:19 → UNDOADMIN 09-11 01:04 → JERBED 09-11 01:04 → J7W 09-11 09:51
PROVIDERS: ADMIT Internal Medicine; ATTEND Internal Medicine
PROC: HZ2ZZZZ Detoxification Services for Substance Abuse Treatment (ICD-10-PCS; principal; 2017-09-11)
DX: K85.21 Alcohol induced acute pancreatitis with uninfected necrosis (principal); K86.0 Alcohol-induced chronic pancreatitis; Q89.01 Asplenia (congenital); N28.1 Cyst of kidney, acquired; F10.230 Alcohol dependence with withdrawal, uncomplicated; K86.3 Pseudocyst of pancreas; Z90.81 Acquired absence of spleen; F17.210 Nicotine dependence, cigarettes, uncomplicated; D72.829 Elevated white blood cell count, unspecified; I16.0 Hypertensive urgency; I86.4 Gastric varices; F12.20 Cannabis dependence, uncomplicated
CPT/HCPCS: 36415; 71045-TC; 74177-TC; 74183-TC; 76700-TC; 80048; 80053; 80061; 80076; 80307; 81003; 81015; 82105; 82550; 83036; 83690; 83721; 84484; 84703; 85025; 85027; 85610; 85730; 86850; 86900; 86901; 90688; 90733; 93005; 93010; 99281-25; A9576; J1644

== ENCOUNTER 2018-02-11 16:24 | Inpatient (IN) | payer SELFPAY ==
--- NOTE | 2018-02-11 16:26 | PDOC ---
Rapid Medical Evaluation Chief Complaint: Pain Time Seen by Provider: 02/11/18 16:25 Medical Evaluation: Allergies Allergy/AdvReac Type Severity Reaction Status Date / Time No Known Allergies Allergy Verified 02/11/18 16:25 I have performed a brief in-person evaluation of this patient. The patient presents with a chief complaint of: back pain and abdominal pain x 1 week. No alcohol in 2 weeks. h/o ETOH abuse and pancreatitis with prior ICU admission Pertinent physical exam findings: frail. Otherwise well appearing. I have ordered the following: labs, EKG The patient will proceed to the ED for further evaluation. Discharge Disposition - Diagnosis Back pain, Abdominal pain - Referrals - Patient Instructions - Post Discharge Activity
[2018-02-11 16:56] LABS: BASO % 0.5 % (0-2.0); EOS % 0.2 % (0-4.5); HEMATOCRIT 39.9 % (32.4-45.2); HEMOGLOBIN 13.2 GM/dL (10.7-15.3); LYMPH % 17.2 % (8-40); MEAN CELL VOLUME 84.9 fl (80-96); MEAN PLT VOLUME 8.2 fl (7.5-11.1); MONO % 6.1 % (3.8-10.2); PLATELET COUNT 595 K/MM3 (134-434); RBC 4.71 M/mm3 (3.60-5.2); RDW 17.5 % (11.6-15.6); WHITE BLOOD COUNT 12.7 K/mm3 (4.0-10.0)
--- NOTE | 2018-02-11 17:34 | PDOC ---
History of Present Illness - General Chief Complaint: Pain Stated Complaint: PAIN Time Seen by Provider: 02/11/18 16:25 - History of Present Illness Initial Comments: 02/11/18 19:48 The patient is a 42 year old female with a history of HTN and alcohol abuse and pancreatitis who presents for evaluation of abdominal pain. The patient reports a 1 week history of epigastric abdominal pain with radiation into her back associated with multiple episodes of non-bilious, non-bloody vomiting prompting her presentation to the ED for further evaluation. She notes that her symptoms feel similar to her prior presentations for prancreatitis her most recent of which was September of this year. She otherwise denies fevers, chills, SOB, chest pain, or changes with urination or bowel movements. Past History - Past Medical History Allergies/Adverse Reactions: Allergies Allergy/AdvReac Type Severity Reaction Status Date / Time No Known Allergies Allergy Verified 02/11/18 16:25 Home Medications: Ambulatory Orders NK [No Known Home Medication] 02/11/18 Anemia: No Asthma: No Cancer: No Cardiac Disorders: No CVA: No COPD: No CHF: No Dementia: No Diabetes: No GI Disorders: Yes (pancreatitis) Disorders: No HTN: No Hypercholesterolemia: No Liver Disease: No Seizures: No Thyroid Disease: No - Surgical History Abdominal Surgery: Yes (spleen) Appendectomy: No Cardiac Surgery: No Cholecystectomy: No Lung Surgery: No Neurologic Surgery: No Orthopedic Surgery: No - Suicide/Smoking/Psychosocial Hx Smoking History: Current every day smoker Have you smoked in the past 12 months: Yes Number of Cigarettes Smoked Daily: 8 Information on smoking cessation initiated: Yes 'Breaking Loose' booklet given: 02/11/18 Hx Alcohol Use: Yes (occas) Drug/Substance Use Hx: No Substance Use Type: Alcohol, Marijuana Hx Substance Use Treatment: No Review of Systems - Review of Systems Comments:: 02/11/18 19:55 Constitutional: No fevers, chills, fatigue, malaise HEENT: No Rhinorrhea, nasal congestion, visual changes Cardiovascular: No chest pain, syncope, palpitations, lightheadedness Respiratory: No Cough, SOB, Hemoptysis, Gastrointestinal: Abdominal pain, nausea, vomiting. No Constipation, Diarrhea, Melena Genitourinary: No Dysuria, Frequency, Urgency, Hesitancy, Hematuria, Flank pain Musculoskeletal: No Myalgia, arthralgia Skin: No rashes, itching, bruising, pallor Neurologic: No Headache, Dizziness, Numbness, Weakness, or Tingling Psychiatric: No Hallucinations. No SI or HI *Physical Exam - Vital Signs Last Vital Signs Temp Pulse Resp BP Pulse Ox 98.6 F 104 H 18 148/103 100 02/11/18 16:26 02/11/18 16:26 02/11/18 16:26 02/11/18 16:26 02/11/18 16:26 - Physical Exam Comments: 02/11/18 19:55 General Appearance: Thin. No Apparent Distress HEENT: EOMI, LANDRY. No Pharyngeal Erythema, Tonsillar Exudate, Tonsillar Erythema Neck: No Cervical Lymphadenopathy Respiratory/Chest: Lungs Clear, Normal Breath Sounds. No Crackles, Rales, Rhonchi, Wheezing Cardiovascular: Regular Rhythm, Regular Rate. No Murmur, Gallops, Rubs Gastrointestinal/Abdominal: Normal Bowel Sounds, Soft. Diffuse tenderness to palpation on exam. No Guarding, Rebound, Musculoskeletal: No CVA Tenderness Extremity: Normal Capillary Refill Integumentary: Normal Color, Dry, Warm Neurologic: Fully Oriented, Alert, Normal Mood/Affect, Normal Response, ED Treatment Course - LABORATORY CBC & Chemistry Diagram: 02/13/18 08:04 02/13/18 06:20 - ADDITIONAL ORDERS Additional order review: Laboratory Results 02/11/18 16:48 Sodium Cancelled Potassium Cancelled Chloride Cancelled Carbon Dioxide Cancelled Anion Gap Cancelled BUN Cancelled Creatinine Cancelled Creat Clearance w eGFR Cancelled Random Glucose Cancelled Calcium Cancelled Total Bilirubin Cancelled AST Cancelled ALT Cancelled Alkaline Phosphatase Cancelled LD Total Cancelled Total Protein Cancelled Albumin Cancelled Lipase Cancelled 02/11/18 16:48 RBC 4.71 MCV 84.9 MCHC 33.0 RDW 17.5 H MPV 8.2 D Neutrophils % 76.0 Lymphocytes % 17.2 D Monocytes % 6.1 Eosinophils % 0.2 Basophils % 0.5 Medical Decision Making - Medical Decision Making 02/11/18 19:56 The patient is a 42 year old female with a history of HTN and alcohol abuse and pancreatitis who presents for evaluation of abdominal pain. Differential includes but is not limited to: Pancreatitis, Gastritis, Infectious, Metabolic derangement. Given the patient's history and symptoms, it is possible her current symptoms are due to recurrent pancreatitis. We will obtain a cbc, cmp, lipase, ua to evaluate further. We will treat in the meantime with iv fluids, zofran, morphine. We will continue to monitor and reassess. 02/11/18 21:15 Lipase is elevated to 8000 consistent with acute pancreatitis. The patient will require admission for further management at this time. We discussed the case with the admitting team who accepted the patient for admission. We will continue to treat the patient with iv fluids here in the ED. *DC/Admit/Observation/Transfer Diagnosis at time of Disposition: Back pain Qualifiers: Back pain location: back pain in unspecified location Chronicity: unspecified Back pain laterality: unspecified Qualified Code(s): M54.9 - Dorsalgia, unspecified Abdominal pain Qualifiers: Abdominal location: unspecified location Qualified Code(s): R10.9 - Unspecified abdominal pain - Discharge Dispostion Condition at time of disposition: Stable Decision to Admit order: Yes - Referrals - Patient Instructions - Post Discharge Activity
[2018-02-11] MEDS ORDERED: ONDANSETRON 4 MG/2 ML VIAL IVPUSH ONE (17:57)
[2018-02-11] MEDS ORDERED: SODIUM CHLORIDE 1,000 ML IV STA ×2 (17:57→21:10)
[2018-02-11] MEDS ORDERED: morphine CARPU-JECT 4 MG/1 ML DISP.SYRIN IVPUSH ONE (17:58)
--- NOTE | 2018-02-11 18:09 | PDOC ---
Attending Attestation - HPI HPI: The patient is 42 a year old female, with a significant past medical history of pancreatitis and alcoholism, who presents to the emergency department with, one week of diffuse LQ abdominal pain and back pain. As per patient, the pain is similar to that of her previous episode of pancreatitis which she was admitted to the ICU for. She reports associated SOB. She denies recent fevers, chills, headache or dizziness. She denies recent nausea, vomit, diarrhea or constipation. She denies recent dysuria, frequency, urgency or hematuria. She denies recent chest pain. Allergies: NKA Past surgical history: None reported. Social history: Smoker (28 years, 7 cigarettes per day). Alcohol abuse (6 years) .Denies recreational drug use. - Physicial Exam PE: 02/11/18 19:55 GENERAL: Thin. Well developed, well nourished. Awake and alert. No acute distress. HEENT: Normocephalic, atraumatic. PERRLA, EOMI. No conjunctival pallor. Sclera are non- icteric. Moist mucous membranes. Oropharynx is clear. NECK: Supple. Full ROM. No JVD. Carotid pulses 2+ and symmetric, without bruits. No thyromegaly. No lymphadenopathy. CARDIOVASCULAR: Regular rate and rhythm. No murmurs, rubs, or gallops. Distal pulses are 2+ and symmetric. PULMONARY: No evidence of respiratory distress. Lungs clear to auscultation bilaterally. No wheezing, rales or rhonchi. +ABDOMINAL: Diffuse tenderness. Well healed surgical scar. Soft. Non-distended. No rebound or guarding. No organomegaly. Normoactive bowel sounds. MUSCULOSKELETAL Normal range of motion at all joints. No bony deformities or tenderness. No CVA tenderness. EXTREMITIES: No cyanosis. No clubbing. No edema. No calf tenderness. SKIN: Warm and dry. Normal capillary refill. No rashes. No jaundice. NEUROLOGICAL: Alert, awake, appropriate. Cranial nerves 2-12 intact. No deficits to light touch and temperature in face, upper extremities and lower extremities. No motor deficits in the in face, upper extremities and lower extremities. Normoreflexic in the upper and lower extremities. Normal speech. Toes are down- going bilaterally. Gait is normal without ataxia. PSYCHIATRIC: Cooperative. Good eye contact. Appropriate mood and affect. <Sarahi Toledo Last Filed: 02/11/18 19:55> - Resident Resident Name: Miles Dejesus - ED Attending Attestation I have performed the following: I have examined & evaluated the patient, The case was reviewed & discussed with the resident, I agree w/resident's findings & plan, Exceptions are as noted - HPI HPI: 02/11/18 18:08 42-year-old wlcoholism andresents with epigastric pain radiating to her back, nausea, one episode of nonbilious, vomiting - Medical Decision Making 02/11/18 18:08 differential diagnosis includes cholecystitis, recurrent pancreatitis, alcoholic gastritis plan lipase, lfts cbc, antiemetics,IVF 02/11/18 21:35 42-year-old female history of alcoholism presents with diffuse abdominal paiN, LIPASE>8000 being admitted for antiemetics,IVF,pain meds and GI consult <Yudi Erwin - Last Filed: 02/12/18 01:46> Attestations - Attestations 02/11/18 19:56 Documentation prepared by Sarahi Toledo, acting as medical billing assistant for Yudi Erwin MD. <Sarahi Toledo - Last Filed: 02/11/18 19:55>
[2018-02-11 18:22] LABS: HCG,QUALITATIVE URINE NEGATIVE
[2018-02-11] MEDS ORDERED: morphine SULFATE 4 MG/ML VIAL ONE ×2 (18:46→23:54)
[2018-02-11] MEDS ORDERED: ONDANSETRON 4 MG/2 ML VIAL ONE ×2 (18:46→23:45)
[2018-02-11 20:44] LABS: ALBUMIN 3.1 g/dl (3.4-5.0); ANION GAP 6 (8-16); CALCIUM 8.7 mg/dL (8.5-10.1); CHLORIDE 104 mmol/L (98-107); CO2 27 mmol/L (21-32); CREATININE 0.5 mg/dL (0.55-1.02); GLUCOSE,RANDOM 100 mg/dL (74-106); POTASSIUM 4.2 mmol/L (3.5-5.1); SGOT/AST 21 U/L (15-37); SGPT/ALT 40 U/L (12-78); SODIUM 137 mmol/L (136-145)
[2018-02-11 21:02] LABS: ALK PHOS 174 U/L (45-117); BILIRUBIN,TOTAL 0.4 mg/dL (0.2-1.0); BLOOD UREA NITROGEN 5 mg/dL (7-18)
[2018-02-11 21:06] LABS: LIPASE 8294 U/L (73-393)
--- NOTE | 2018-02-11 21:29 | HP ---
CHIEF COMPLAINT: Abdominal pain, N/V PCP: Dr. David HISTORY OF PRESENT ILLNESS: 42 yo woman with pmh chronic pancreatitis, alcohol abuse and 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 Pt was in her USOH when she endorsed progressive onset of diffuse abdominal pain and BL lower back pain, worsened by eating and deep breathing, which has persisted over the last week. Pt states the symptoms are virtually identical to prior episode of pancreatitis in Sep 2017 (3 prior episodes total), however are more severe. Pt has been unable to tolerate PO feeds for the last 4 days due to pain/nausea and endorses occasional episodes of NBNB vomiting and nausea. Pt endorses light colored stools that float over the last 4 days, as well. She denies any hx of gallstones, hyperlipidemia, med changes, AI conditions, recent GI procedures, abnormal lab tests in last 6 months. Pt was transferred to [facility] on last admission at [facility] on 09/2017 for pancreatitis and suspicious mass in head of pancreas, however has been inconsistent with her f/u appointments and is unable to given an accurate hx if she was diagnosed with cancer or not. Pt does endorse a 25lb weight loss over the last year and decreased appetite in the same time period. She also endorses intermittent fevers and chills chronically. She most recently drank alcohol 2-3 weeks ago nd denies any current withdrawal symptoms. Pt denies any recent new f/c, BATES, chest pain/tightness, cough, SOB, dysuria, hematuria, diarrhea, melena, hematochezia, rashes, FNDs. 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 Mainly liquor. Drugs: Marijuana infrequently, no IVDU Family History: Noncontributory Allergies No Known Allergies Allergy (Verified 02/11/18 16:25) HOME MEDICATIONS: Home Medications Medication Instructions Recorded NK [No Known Home Medication] 02/11/18 REVIEW OF SYSTEMS CONSTITUTIONAL: Absent: fever, chills, diaphoresis, generalized weakness, malaise, loss of appetite, weight change HEENT: Absent: rhinorrhea, nasal congestion, throat pain, throat swelling, difficulty swallowing, mouth swelling, ear pain, eye pain, visual changes CARDIOVASCULAR: Absent: chest pain, syncope, palpitations, irregular heart rate, lightheadedness , peripheral edema RESPIRATORY: Absent: cough, shortness of breath, dyspnea with exertion, orthopnea, wheezing, stridor, hemoptysis GASTROINTESTINAL: abdominal pain, nausea, vomiting, Absent: abdominal distension, diarrhea, constipation, melena, hematochezia GENITOURINARY: Absent: dysuria, frequency, urgency, hesitancy, hematuria, flank pain, genital pain MUSCULOSKELETAL: Absent: myalgia, arthralgia, joint swelling, back pain, neck pain SKIN: Absent: rash, itching, pallor HEMATOLOGIC/IMMUNOLOGIC: Absent: easy bleeding, easy bruising, lymphadenopathy, frequent infections ENDOCRINE: Absent: unexplained weight gain, unexplained weight loss, heat intolerance, cold intolerance NEUROLOGIC: Absent: headache, focal weakness or paresthesias, dizziness, unsteady gait, seizure, mental status changes, bladder or bowel incontinence PSYCHIATRIC: Absent: anxiety, depression, suicidal or homicidal ideation, hallucinations. PHYSICAL EXAMINATION Vital Signs - 24 hr 02/11/18 02/11/18 16:26 20:56 Temperature 98.6 F Pulse Rate 104 H Pulse Rate [ 84 Radial] Respiratory 18 18 Rate Blood Pressure 148/103 Blood Pressure 148/106 [Right Arm] O2 Sat by Pulse 100 99 Oximetry (%) GENERAL: Thin woman, Awake, alert, and fully oriented, in no acute distress. HEAD: Normal with no signs of trauma. EYES: Pupils equal, round and reactive to light, extraocular movements intact, sclera anicteric, conjunctiva clear. No lid lag. EARS, NOSE, THROAT: Ears normal, nares patent, oropharynx clear without exudates. Moist mucous membranes. NECK: Normal range of motion, supple without lymphadenopathy, JVD, or masses. LUNGS: Breath sounds equal, clear to auscultation bilaterally. No wheezes, and no crackles. No accessory muscle use. HEART: Regular rate and rhythm, normal S1 and S2 without murmur, rub or gallop. ABDOMEN: TTP to palpation in all 4 quads. Soft, not distended, normoactive bowel sounds, no guarding, no rebound, no masses. No hepatomegaly or splenomegaly. MUSCULOSKELETAL: Normal range of motion at all joints. No bony deformities or tenderness. No CVA tenderness. UPPER EXTREMITIES: 2+ pulses, warm, well-perfused. No cyanosis. No clubbing. No peripheral edema. LOWER EXTREMITIES: 2+ pulses, warm, well-perfused. No calf tenderness. No peripheral edema. NEUROLOGICAL: Cranial nerves II-XII intact. Normal speech. Normal gait. PSYCHIATRIC: Cooperative. Good eye contact. Appropriate mood and affect. SKIN: Warm, dry, normal turgor, no rashes or lesions noted, normal capillary refill. Laboratory Results - last 24 hr CBC, [facility] 02/11/18 16:48 02/11/18 20:00 02/11/18 02/11/18 02/11/18 16:48 16:48 17:10 WBC 12.7 H RBC 4.71 Hgb 13.2 Hct 39.9 MCV 84.9 MCH 28.0 MCHC 33.0 RDW 17.5 H Plt Count 595 H D MPV 8.2 D Absolute Neuts (auto) 9.6 Neutrophils % 76.0 Lymphocytes % 17.2 D Monocytes % 6.1 Eosinophils % 0.2 Basophils % 0.5 Nucleated RBC % 0 Sodium Cancelled Potassium Cancelled Chloride Cancelled Carbon Dioxide Cancelled Anion Gap Cancelled BUN Cancelled Creatinine Cancelled Creat Clearance w eGFR Cancelled Random Glucose Cancelled Calcium Cancelled Total Bilirubin Cancelled AST Cancelled ALT Cancelled Alkaline Phosphatase Cancelled LD Total Cancelled Total Protein Cancelled Albumin Cancelled Lipase Cancelled Urine HCG, Qual Negative 02/11/18 20:00 WBC RBC Hgb Hct MCV MCH MCHC RDW Plt Count MPV Absolute Neuts (auto) Neutrophils % Lymphocytes % Monocytes % Eosinophils % Basophils % Nucleated RBC % Sodium 137 Potassium 4.2 Chloride 104 Carbon Dioxide 27 Anion Gap 6 L BUN 5 L Creatinine 0.5 L Creat Clearance w eGFR > 60 Random Glucose 100 Calcium 8.7 Total Bilirubin 0.4 D AST 21 ALT 40 Alkaline Phosphatase 174 H LD Total Total Protein 7.0 Albumin 3.1 L Lipase 8294 H Urine HCG, Qual Urine culture pending, UA pending No imaging EKG pending ASSESSMENT/PLAN: 42 yo woman with pmh chronic pancreatitis, alcohol abuse and 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 #Acute on chronic pancreatitis - lipase 8294; LFTs normal, alk phos 174; based on clinical symptoms and hx, likely pancreatitis; prior hx of pancreatic pseudocyst/mass on imaging - Advance diet as tolerated - IVFs (LR 150cc/hr) - Morphine 4mg IV Q4h for pain control - GI consulted - Dr. Waite - will order abdominal CT for evaluation of pancreas with f/u MRI - Lipid panel (triglycerides) - Consider RUQ U/S #Suspicious pancreatic mass/pancreatic Ca - 4 x 2.8 cm heterogenous mass at head of pancreas on prior abdominal MRI in 09/2017; 25lb weight loss over last year; pt transferred to [facility] on prior admission on 09/2017 for further evaluation of pancreatic mass -> likely poor f/u - Will likely require Abdominal MRI in AM - Onc consult - GI consult - CA 19-9 #Alcohol abuse - Chronic drinker in past 7/8 drinks per night; endorses decreased intake recently, no drinks for last 2-3 weeks; not endorsing any symptoms of withdrawal currently - CIWA score 3 - Librium 50mg q6h PRN - Banana bag - Monitor for withdrawal symptoms #Leukocytosis - possible reactive; meets 2/4 SIRS criteria (tachy 106, wbc 12.7) - Trend WBC, fever curve - Monitor for infectious symptoms - abdominal/pelvis CT scan - f/u urine culture PPX Lovenox SCDs FEN LR 150cc/hr Daily Electrolytes Clear fluids if tolerated Plan discussed with attending, Dr. Paul Sharpe, PGY1 Visit type - Emergency Visit Emergency Visit: Yes ED Registration Date: 02/11/18 Care time: The patient presented to the Emergency Department on the above date and was hospitalized for further evaluation of their emergent condition. - New Patient This patient is new to me today: Yes Date on this admission: 02/12/18 - Critical Care Critical Care patient: No Hospitalist Screening - Colonoscopy Questionnaire Colonoscopy Questionnaire: Colonoscopy Questionnaire - Patient: 50 - 75 years old and never had a screening colonoscopy: Unknown History of colon or rectal polyps, or CA: Unknown History of IBD, Crohn's disease or UC: Unknown History of abdominal radiation therapy as a child: Unknown - Relative: 1 with colon or rectal CA, or polyps at age 60 or younger: Unknown Colon or rectal CA diagnosed at age 45 or younger: Unknown Multiple relatives with colon or rectal CA: Unknown - Outcome: Screening Result: Negative Screen
--- NOTE | 2018-02-11 21:44 | PN ---
Teaching Attending Note Name of Resident: Cash Sharpe ATTENDING PHYSICIAN STATEMENT I saw and evaluated the patient. I reviewed the resident's note and discussed the case with the resident. I agree with the resident's findings and plan as documented. SUBJECTIVE: Patient is a 42 year old woman with a history of HTN, alcohol abuse, splenectomy and pancreatitis who presents for evaluation of abdominal pain. The patient reports a one week history of epigastric abdominal pain with radiation into her back associated with multiple episodes of non-bilious, non- bloody vomiting prompting her presentation to the ED for further evaluation. She notes that her symptoms feel similar to her prior presentations for prancreatitis her most recent of which was September of this year. Says she has not had a drink in 3 weeks. She otherwise denies fevers, chills, SOB, chest pain , or changes with urination or bowel movements, but has had over 20 pound of unintentional weight loss in past 6 months. OBJECTIVE: Alert, emaciated and in pain Vital Signs Period Temp Pulse Resp BP Sys/Mccann Pulse Ox Last 24 Hr 98.6 F 84-104 18-18 148-148/103-106 99-100 HEENT: No Jaundice, eye redness or discharge, PERRLA, EOMI. Normocephalic, atraumatic. External ears are normal and hearing is grossly intact. No nasal discharge. Neck: Supple, nontender. No palpable adenopathy or thyromegaly. No JVD Chest: Good effort. Clear to auscultation and percussion. Heart: Regular. No S3, rub or murmur Abdomen: Diffuse abdominal tenderness; not distended, soft, no HSM. No rebound or guarding. Normoactive bowel sounds. Ext: Peripheral pulses intact. No leg edema. Skin: Warm and dry. No petechiae, rash or ecchymosis. Neuro: Alert. Oriented x3. No tremors. CN 2-12 grossly intact. Sensation grossly intact in all four extremities and DTR are symmetric. Current Medications Generic Name Dose Route Start Last Admin Trade Name Freq PRN Reason Stop Dose Admin Sodium Chloride 1,000 mls @ 1,000 mls/hr 02/11/18 21:10 Normal Saline - IV 02/11/18 22:09 ASDIR STA Home Medications Medication Instructions Recorded NK [No Known Home Medication] 02/11/18 Abnormal Lab Results 02/11/18 02/11/18 16:48 20:00 WBC 12.7 H RDW 17.5 H Plt Count 595 H D Anion Gap 6 L BUN 5 L Creatinine 0.5 L Alkaline Phosphatase 174 H Albumin 3.1 L Lipase 8294 H ASSESSMENT AND PLAN: 1. Acute Pancreatitis - Acute flare up in a patient with chronic recurrent pancreatitis. Will give her IV Lactated Ringers at 150 ml/hour, use morphine 2mg IV q 4 hours for pain control and feed her once she can tolerate oral intake. A CT scan of the abdomen showed that her pancreatic pseudocyst is larger compared to the September 2017 study as well as persisted bile duct and gall bladder dilatation. While her mild leukocytosis and initial tachycardia are concerning, there is no indication for antibiotics at this time. Will monitor CBC. 2. Weigh loss - CT and MRI done in September 2017 showed suspicious lesions suggestive of malignancy. Now with history of weight loss, will compare today's CT with that from September and consult oncology. 3. [facility] withdrawal - [facility], implement fall precautions, get EKG, urine toxicology screen and check Ca- Mg - Phospahate. Treat with folic acid and thiamine once we give her some calories. Thrombocytosis likely due to alcohol. Will refer to alcohol Detox upon discharge. 4. DVT prophylaxis - Heparin 5000u sq tid 5. Advance directives - Full code
[2018-02-11 21:47] LABS: URINE APPEARANCE SLCLOUDY; URINE BILIRUBIN NEGATIVE (<2.0 mg/dL); URINE COLOR AMBER; URINE GLUCOSE (UA) NEGATIVE (NEGATIVE); URINE KETONE TRACE (NEGATIVE); URINE LEUK ESTERASE NEGATIVE (NEGATIVE); URINE NITRITE NEGATIVE (NEGATIVE)
[2018-02-11 21:48] LABS: URINE PROTEIN 1+ (NEGATIVE)
[2018-02-11 21:59] LABS: EPI CELLS MODERATE /HPF (FEW); URINE MUCUS MANY
[2018-02-11] MEDS ORDERED: ONDANSETRON 4 MG/2 ML VIAL IVPUSH PRN (22:11)
[2018-02-11] MEDS ORDERED: morphine CARPU-JECT 2 MG/1 ML DISP.SYRIN IVPUSH PRN (22:11)
[2018-02-11] MEDS ORDERED: chlordiazePOXIDE HCL 25 MG CAPSULE PO PRN (22:39)
[2018-02-11] MEDS ORDERED: FOLIC ACID INJECTION - 1 MG, THIAMINE HCL 100 MG, MULTIVIT INJECTION ADULT 10 ML in SOD... IVPB ONE (22:45)
[2018-02-11] MEDS: LACTATED RINGERS SOLUTION 1,000 ML IV SCH (23:30)
[2018-02-12] MEDS: morphine SULFATE 4 MG/ML VIAL IVPUSH PRN ×5 (00:02→20:26)
[2018-02-12 03:38] VITALS: BMI 14.4
[2018-02-12] MEDS: LACTATED RINGERS SOLUTION 1,000 ML IV SCH ×3 (06:15→22:56)
[2018-02-12 07:48] LABS: BASO % 0.2 % (0-2.0); EOS % 0.2 % (0-4.5); HEMATOCRIT 37.6 % (32.4-45.2); HEMOGLOBIN 12.4 GM/dL (10.7-15.3); LYMPH % 17.9 % (8-40); MCH 28.2 pg (25.7-33.7); MCHC 32.9 g/dl (32.0-36.0); MEAN CELL VOLUME 85.6 fl (80-96); MEAN PLT VOLUME 8.8 fl (7.5-11.1); MONO % 6.9 % (3.8-10.2); NEUT % 74.8 % (42.8-82.8); PLATELET COUNT 535 K/MM3 (134-434); RDW 17.6 % (11.6-15.6); WHITE BLOOD COUNT 14.1 K/mm3 (4.0-10.0)
[2018-02-12 07:58] LABS: ALBUMIN 3.2 g/dl (3.4-5.0); ANION GAP 11 (8-16); BLOOD UREA NITROGEN 4 mg/dL (7-18); CALCIUM 8.9 mg/dL (8.5-10.1); CHLORIDE 103 mmol/L (98-107); CO2 23 mmol/L (21-32); POTASSIUM 3.9 mmol/L (3.5-5.1); SODIUM 137 mmol/L (136-145)
[2018-02-12 08:03] LABS: ALK PHOS 181 U/L (45-117); BILIRUBIN,TOTAL 0.7 mg/dL (0.2-1.0); CREATININE 0.4 mg/dL (0.55-1.02); GLUCOSE,RANDOM 83 mg/dL (74-106); MAGNESIUM 1.6 mg/dL (1.8-2.4); PHOSPHOROUS 3.4 mg/dL (2.5-4.9); SGOT/AST 24 U/L (15-37); SGPT/ALT 34 U/L (12-78); TOT PROT 6.9 g/dl (6.4-8.2)
[2018-02-12] MEDS: ENOXAPARIN NA (PORCINE) 40 MG/0.4 ML DISP.SYRIN SQ SCH (09:06)
[2018-02-12 09:41] LABS: CHOLESTEROL 101 mg/dL (50-200); TRIGLYCERIDES 83 mg/dL (35-160)
--- NOTE | 2018-02-12 09:41 | EKG ---
Test Reason : Blood Pressure : / mmHG Vent. Rate : 063 BPM Atrial Rate : 063 BPM P-R Int : 108 ms QRS Dur : 080 ms QT Int : 420 ms P-R-T Axes : 018 048 011 degrees QTc Int : 429 ms SINUS RHYTHM WITH SHORT RI OTHERWISE NORMAL ECG WHEN COMPARED WITH ECG OF 11-SEP-2017 00:25, T WAVE INVERSION NOW EVIDENT IN INFERIOR LEADS Confirmed by LEVI ARREOLA, ABHIJEET ([id number]) on 02/12/2018 9:41:01 AM Referred By: Confirmed By:ABHIJEET SIMS MD
--- NOTE | 2018-02-12 10:56 | CON.GI ---
Consult Consult Specialty:: GI Reason for Consultation:: Pancreatitis - History of Present Illness History of Present Illness: The pt is known to GI service. Chart reviewed, current and prior admissions reviewed. Readmitted with epigastric, radiating to the back, 6/10 pain with persistent nausea worsened by sight of food. Lipase 8300, ALP 181, WBC 14. Not in distress , does not appear toxic. Last alcohol intake 2-3 weeks ago. Was seen once at [facility] for EUS/FNA of the "pancreatic mass" found on prior admission at , however , did not follow up with them for the actual procedure. Reports 25 lb, unintentional weight loss since Sep 2017. No fevers, chills, dysphagia, jaundice , melena, hematochezia, or hematemesis. 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 History of Recent Travel: No Home Medications - Allergies Allergies/Adverse Reactions: Allergies Allergy/AdvReac Type Severity Reaction Status Date / Time No Known Allergies Allergy Verified 02/11/18 16:25 - Home Medications Home Medications: Ambulatory Orders NK [No Known Home Medication] 02/11/18 Family Disease History - Family Disease History Family Disease History: Other: Father (does not know his medical history), Mother (alive: healthy), Brother ( in infancy: crib ), Daughter (1 healthy daughter) Review of Systems Findings/Remarks: as per HPI, H&P Physical Exam-GI Vital Signs: Vital Signs Temperature 98.4 F 02/12/18 06:11 Pulse Rate 76 02/12/18 06:11 Respiratory Rate 18 02/12/18 06:11 Blood Pressure 137/88 02/12/18 06:11 O2 Sat by Pulse Oximetry (%) 100 02/11/18 21:35 Constitutional: Yes: Calm, Cachectic, Thin Eyes: Yes: Conjunctiva Clear HENT: Yes: Atraumatic Neck: Yes: Supple Cardiovascular: Yes: Regular Rate and Rhythm Respiratory: Yes: Regular Gastrointestinal Inspection: No: Ascites, Distention ...Auscultate: Yes: Normoactive Bowel Sounds ...Palpate: Yes: Other (midline scar - splenectomy (?trauma/bleeding) 07/2017). No: Firm/Rigid, Guarding, Soft, Tenderness, Tenderness, Epigastium Neurological: Yes: Alert, Oriented Labs: CBC, BMP 02/12/18 06:00 02/12/18 06:00 Laboratory Last Values WBC 14.1 K/mm3 (4.0-10.0) H 02/12/18 06:00 RBC 4.40 M/mm3 (3.60-5.2) 02/12/18 06:00 Hgb 12.4 GM/dL (10.7-15.3) 02/12/18 06:00 Hct 37.6 % (32.4-45.2) 02/12/18 06:00 MCV 85.6 fl (80-96) 02/12/18 06:00 MCH 28.2 pg (25.7-33.7) 02/12/18 06:00 MCHC 32.9 g/dl (32.0-36.0) 02/12/18 06:00 RDW 17.6 % (11.6-15.6) H 02/12/18 06:00 Plt Count 535 K/MM3 (134-434) H 02/12/18 06:00 MPV 8.8 fl (7.5-11.1) 02/12/18 06:00 Absolute Neuts (auto) 10.5 # 02/12/18 06:00 Neutrophils % 74.8 % (42.8-82.8) 02/12/18 06:00 Lymphocytes % 17.9 % (8-40) 02/12/18 06:00 Monocytes % 6.9 % (3.8-10.2) 02/12/18 06:00 Eosinophils % 0.2 % (0-4.5) 02/12/18 06:00 Basophils % 0.2 % (0-2.0) 02/12/18 06:00 Nucleated RBC % 0 % (0-0) 02/12/18 06:00 Sodium 137 mmol/L (136-145) 02/12/18 06:00 Potassium 3.9 mmol/L (3.5-5.1) 02/12/18 06:00 Chloride 103 mmol/L (98-107) 02/12/18 06:00 Carbon Dioxide 23 mmol/L (21-32) 02/12/18 06:00 Anion Gap 11 (8-16) 02/12/18 06:00 BUN 4 mg/dL (7-18) L 02/12/18 06:00 Creatinine 0.4 mg/dL (0.55-1.02) L 02/12/18 06:00 Creat Clearance w eGFR > 60 (>60) 02/12/18 06:00 Random Glucose 83 mg/dL (74-106) 02/12/18 06:00 Calcium 8.9 mg/dL (8.5-10.1) 02/12/18 06:00 Phosphorus 3.4 mg/dL (2.5-4.9) 02/12/18 06:00 Magnesium 1.6 mg/dL (1.8-2.4) L 02/12/18 06:00 Total Bilirubin 0.7 mg/dL (0.2-1.0) D 02/12/18 06:00 AST 24 U/L (15-37) 02/12/18 06:00 ALT 34 U/L (12-78) 02/12/18 06:00 Alkaline Phosphatase 181 U/L (45-117) H 02/12/18 06:00 LD Total Cancelled 02/11/18 16:48 Total Protein 6.9 g/dl (6.4-8.2) 02/12/18 06:00 Albumin 3.2 g/dl (3.4-5.0) L 02/12/18 06:00 Triglycerides 83 mg/dL (35-160) 02/12/18 06:00 Cholesterol 101 mg/dL (50-200) 02/12/18 06:00 Total LDL Cholesterol 36 mg/dL (5-100) 02/12/18 06:00 Lipase 8294 U/L (73-393) H 02/11/18 20:00 Urine Color Jessica 02/11/18 17:10 Urine Appearance Slcloudy 02/11/18 17:10 Urine pH 5.0 (5.0-8.0) 02/11/18 17:10 Ur Specific [place] 1.039 (1.001-1.035) H 02/11/18 17:10 Urine Protein 1+ (NEGATIVE) H 02/11/18 17:10 Urine Glucose (UA) Negative (NEGATIVE) 02/11/18 17:10 Urine Ketones Trace (NEGATIVE) H 02/11/18 17:10 Urine Blood Negative (NEGATIVE) 02/11/18 17:10 Urine Nitrite Negative (NEGATIVE) 02/11/18 17:10 Urine Bilirubin Negative (<2.0 mg/dL) 02/11/18 17:10 Urine Urobilinogen 2.0 mg/dL (0.2-1.0) H 02/11/18 17:10 Ur Leukocyte Esterase Negative (NEGATIVE) 02/11/18 17:10 Urine WBC (Auto) 2 /hpf (3-5) 02/11/18 17:10 Urine RBC (Auto) 5 /hpf (0-3) 02/11/18 17:10 Ur Epithelial Cells Moderate /HPF (FEW) 02/11/18 17:10 Urine Mucus Many 02/11/18 17:10 Urine HCG, Qual Negative 02/11/18 17:10 Imaging - Results Cat Scan: Pending Problem List - Problems (1) Pancreatic mass Code(s): K86.9 - DISEASE OF PANCREAS, UNSPECIFIED (2) Alcohol dependence with uncomplicated withdrawal Code(s): F10.230 - ALCOHOL DEPENDENCE WITH WITHDRAWAL, UNCOMPLICATED (3) Pancreatitis, acute Code(s): K85.90 - ACUTE PANCREATITIS WITHOUT NECROSIS OR INFECTION, UNSP Qualifiers: Pancreatitis type: unspecified pancreatitis type Acute pancreatitis complication: unspecified Qualified Code(s): K85.90 - Acute pancreatitis without necrosis or infection, unspecified Assessment/Plan Agree with current management of acute, mild pancreatitis. Follow CT results re pancreatic mass. CA 19-19, AFP. Discussed with the patient. Monitor for signs/ symptoms of withdrawal. Substance abuse counselling
[2018-02-12 11:26] LABS: HDL CHOLESTEROL 60 mg/dL (40-60)
--- NOTE | 2018-02-12 13:58 | PN ---
Physical Exam: SUBJECTIVE: Patient seen and examined. She is worried about he weight loss, denies n/v OBJECTIVE: Vital Signs Period Temp Pulse Resp BP Sys/Mccann Pulse Ox Last 24 Hr 97.9 F-98.6 F 67-104 18-18 137-166/88-106 99-100 PE Neuro: alert, awake, cn 2-12intact Pulm: crackles at bases CV: s1 s2 rrr no mrg Abd: s tender to palpation ExT: no le edema Laboratory Results - last 24 hr 02/11/18 02/12/18 02/12/18 20:00 06:00 06:00 WBC 14.1 H RBC 4.40 Hgb 12.4 Hct 37.6 MCV 85.6 MCH 28.2 MCHC 32.9 RDW 17.6 H Plt Count 535 H MPV 8.8 Absolute Neuts (auto) 10.5 Neutrophils % 74.8 Lymphocytes % 17.9 Monocytes % 6.9 Eosinophils % 0.2 Basophils % 0.2 Nucleated RBC % 0 Sodium 137 137 Potassium 4.2 3.9 Chloride 104 103 Carbon Dioxide 27 23 Anion Gap 6 L 11 BUN 5 L 4 L Creatinine 0.5 L 0.4 L Creat Clearance w eGFR > 60 > 60 Random Glucose 100 83 Calcium 8.7 8.9 Phosphorus 3.4 Magnesium 1.6 L Total Bilirubin 0.4 D 0.7 D AST 21 24 ALT 40 34 Alkaline Phosphatase 174 H 181 H LD Total Total Protein 7.0 6.9 Albumin 3.1 L 3.2 L Triglycerides 83 Cholesterol 101 Total LDL Cholesterol 36 HDL Cholesterol 60 Lipase 8294 H Urine Color Urine Appearance Urine pH Ur Specific [place] Urine Protein Urine Glucose (UA) Urine Ketones Urine Blood Urine Nitrite Urine Bilirubin Urine Urobilinogen Ur Leukocyte Esterase Urine WBC (Auto) Urine RBC (Auto) Ur Epithelial Cells Urine Mucus Urine HCG, Qual Active Medications Generic Name Dose Route Start Last Admin Trade Name Freq PRN Reason Stop Dose Admin Chlordiazepoxide HCl 50 mg 02/11/18 22:39 Librium - PO Q6H PRN WITHDRAWAL(CONT SUBST) Enoxaparin Sodium 40 mg 02/12/18 10:00 02/12/18 09:06 Lovenox - SQ 40 mg DAILY LUCIO Administration Lactated Ringer's 1,000 mls @ 150 mls/hr 02/11/18 22:15 02/12/18 06:15 Lactated Ringers Solution IV 150 mls/hr ASDIR LUCIO Administration Morphine Sulfate 4 mg 02/11/18 22:36 02/12/18 11:46 Morphine Sulfate IVPUSH 4 mg Q4H PRN Administration PAIN LEVEL 6-10 Ondansetron HCl 4 mg 02/11/18 22:11 02/12/18 00:03 Zofran Injection IVPUSH 4 mg Q6H PRN Administration NAUSEA Assessment: 42 year old female with pmh chronic pancreatitis, alcohol abuse and 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 Plan: 1. Acute Pancreatitis - Continue LR - Check lipase in AM - Clear liquids for now - GI following 2. Pancreatic pseudocyst - CTAP shows multiple pseudocysts, promience of pancreatic head c/w chronic pancreatitis - Consider MRCP - Defer to GI, pt unable to follow up d/t loss of insurance d/t cost - ca 19-9 pending 3. Alcohol withdrawal - No signs of withdrawal at this time - Cont librium prn - Folic acid, thiamine, mvi 4. Thrombocytosis - Likely due to above 5 DVT prophylaxis - Heparin 5000u sq tid Visit type - Emergency Visit Emergency Visit: Yes ED Registration Date: 02/11/18 Care time: The patient presented to the Emergency Department on the above date and was hospitalized for further evaluation of their emergent condition. - New Patient This patient is new to me today: Yes Date on this admission: 02/12/18 - Critical Care Critical Care patient: No
[2018-02-12] MEDS ORDERED: MAGNESIUM SULF 50% (8.12 MEQ/2 ML-1 GM VIAL) IVPB ONE (14:03)
[2018-02-13] MEDS: morphine SULFATE 4 MG/ML VIAL IVPUSH PRN ×4 (00:40→21:56)
--- NOTE | 2018-02-13 00:44 | PN ---
Progress Note (short form) - Note Progress Note: Note from 02/12/2018: Chart reviewed, previous visits reviewed 42 a year old female, with a significant past medical history of pancreatitis and alcoholism, who presents to the emergency department with, one week of diffuse LQ abdominal pain and back pain. As per patient, the pain is similar to that of her previous episode of pancreatitis which she was admitted to the ICU for. She reports associated SOB. She denies recent fevers, chills, headache or dizziness. She denies recent nausea, vomit, diarrhea or constipation. She denies recent dysuria, frequency, urgency or hematuria. She denies recent chest pain. In 09/2017--was transferred for w/u of "pancreatic mass" to [facility] and lost to f/u O/E: General: in NAD HEENT: NCAT abd: Soft NT ND Extremities: No CCE Neuro:AAOX3 Temp Pulse Resp BP Pulse Ox 98.3 F 74 18 143/75 100 02/12/18 23:00 02/12/18 23:00 02/12/18 23:00 02/12/18 23:00 02/12/18 21:00 CBC, BMP 02/12/18 06:00 02/12/18 06:00 Current Medications Generic Name Dose Route Start Last Admin Trade Name Freq PRN Reason Stop Dose Admin Chlordiazepoxide HCl 50 mg 02/11/18 22:39 Librium - PO Q6H PRN WITHDRAWAL(CONT SUBST) Enoxaparin Sodium 40 mg 02/12/18 10:00 02/12/18 09:06 Lovenox - SQ 40 mg DAILY L[facility] Administration Folic Acid 1 mg 02/13/18 10:00 Folic Acid - PO DAILY LUCIO Lactated Ringer's 1,000 mls @ 150 mls/hr 02/11/18 22:15 02/12/18 22:56 Lactated Ringers Solution IV 150 mls/hr ASDIR LUCIO Administration Morphine Sulfate 4 mg 02/11/18 22:36 02/13/18 00:40 Morphine Sulfate IVPUSH 4 mg Q4H PRN Administration PAIN LEVEL 6-10 Multivitamins/Minerals/Vitamin C 1 tab 02/13/18 10:00 Tab-A-Vit - PO DAILY LUCIO Ondansetron HCl 4 mg 02/11/18 22:11 02/12/18 00:03 Zofran Injection IVPUSH 4 mg Q6H PRN Administration NAUSEA Thiamine HCl 200 mg 02/13/18 10:00 Vitamin B1 Injection - IM DAILY LUCIO pancreatic mass in 09/2017 for GI w/u for CT c/a/p discussed with mom and the pt, the importance of f/u with her physicians once discharged
[2018-02-13 08:57] LABS: CHLORIDE 101 mmol/L (98-107); POTASSIUM 3.7 mmol/L (3.5-5.1); SODIUM 137 mmol/L (136-145)
[2018-02-13 08:58] LABS: ALK PHOS 170 U/L (45-117); ANION GAP 13 (8-16); BILIRUBIN,TOTAL 0.7 mg/dL (0.2-1.0); BLOOD UREA NITROGEN 3 mg/dL (7-18); CALCIUM 9.1 mg/dL (8.5-10.1); CO2 23 mmol/L (21-32); CREATININE 0.3 mg/dL (0.55-1.02); GLUCOSE,RANDOM 66 mg/dL (74-106); MAGNESIUM 1.8 mg/dL (1.8-2.4); SGOT/AST 19 U/L (15-37); SGPT/ALT 27 U/L (12-78); TOT PROT 6.7 g/dl (6.4-8.2)
[2018-02-13 09:05] LABS: BASO % 0.3 % (0-2.0); EOS % 0.3 % (0-4.5); HEMATOCRIT 37.3 % (32.4-45.2); HEMOGLOBIN 12.1 GM/dL (10.7-15.3); LYMPH % 11.4 % (8-40); MCH 27.6 pg (25.7-33.7); MCHC 32.6 g/dl (32.0-36.0); MEAN CELL VOLUME 84.8 fl (80-96); MEAN PLT VOLUME 8.9 fl (7.5-11.1); MONO % 6.2 % (3.8-10.2); NEUT % 81.8 % (42.8-82.8); PLATELET COUNT 526 K/MM3 (134-434); RBC 4.39 M/mm3 (3.60-5.2); RDW 17.1 % (11.6-15.6); WHITE BLOOD COUNT 18.8 K/mm3 (4.0-10.0)
[2018-02-13] MEDS ORDERED: PT OWN MED DRAWER 7, Y5N ONE (10:15)
[2018-02-13] MEDS: ENOXAPARIN NA (PORCINE) 40 MG/0.4 ML DISP.SYRIN SQ SCH (10:41)
[2018-02-13] MEDS: FOLIC ACID 1 MG TABLET (FP) PO SCH (10:41)
[2018-02-13] MEDS: THIAMINE HCL 200 MG/2 ML VIAL IM SCH (10:41)
[2018-02-13] MEDS: MULTIVITAMINS (DAILY MVI) TABLET (FP) PO SCH (10:41)
[2018-02-13 10:49] LABS: LIPASE 2478 U/L (73-393)
--- NOTE | 2018-02-13 11:32 | PN ---
Physical Exam: SUBJECTIVE: Patient seen and examined OBJECTIVE: WBC 18.8, increasing with worsening abdominal Vital Signs Period Temp Pulse Resp BP Sys/Mccann Pulse Ox Last 24 Hr 98.3 F-98.5 F 66-74 18-18 143-159/75-100 100 GENERAL: The patient is awake, alert, and fully oriented, in no acute distress. HEAD: Normal with no signs of trauma. EYES: PERRL, extraocular movements intact, sclera anicteric, conjunctiva clear. No ptosis. ENT: Ears normal, nares patent, oropharynx clear without exudates, moist mucous membranes. NECK: Trachea midline, full range of motion, supple. LUNGS: Breath sounds equal, clear to auscultation bilaterally, no wheezes, no crackles, no accessory muscle use. HEART: Regular rate and rhythm, S1, S2 without murmur, rub or gallop. ABDOMEN: Soft, nontender, nondistended, normoactive bowel sounds, no guarding, no rebound, no hepatosplenomegaly, no masses. Laboratory Results - last 24 hr 02/12/18 02/12/18 02/13/18 06:00 06:00 06:20 WBC RBC Hgb Hct MCV MCH MCHC RDW Plt Count MPV Absolute Neuts (auto) Neutrophils % Lymphocytes % Monocytes % Eosinophils % Basophils % Nucleated RBC % Sodium 137 Potassium 3.7 Chloride 101 Carbon Dioxide 23 Anion Gap 13 BUN 3 L Creatinine 0.3 L Creat Clearance w eGFR > 60 Random Glucose 66 L Calcium 9.1 Magnesium 1.8 Total Bilirubin 0.7 AST 19 ALT 27 Alkaline Phosphatase 170 H Total Protein 6.7 Albumin 3.0 L HDL Cholesterol 60 Lipase 2478 H CA 19-9 Antigen 77 H 02/13/18 08:04 WBC 18.8 H D RBC 4.39 Hgb 12.1 Hct 37.3 MCV 84.8 MCH 27.6 MCHC 32.6 RDW 17.1 H Plt Count 526 H MPV 8.9 Absolute Neuts (auto) 15.4 Neutrophils % 81.8 Lymphocytes % 11.4 D Monocytes % 6.2 Eosinophils % 0.3 Basophils % 0.3 Nucleated RBC % 0 Sodium Potassium Chloride Carbon Dioxide Anion Gap BUN Creatinine Creat Clearance w eGFR Random Glucose Calcium Magnesium Total Bilirubin AST ALT Alkaline Phosphatase Total Protein Albumin HDL Cholesterol Lipase CA 19-9 Antigen Active Medications Generic Name Dose Route Start Last Admin Trade Name Freq PRN Reason Stop Dose Admin Chlordiazepoxide HCl 50 mg 02/11/18 22:39 Librium - PO Q6H PRN WITHDRAWAL(CONT SUBST) Enoxaparin Sodium 40 mg 02/12/18 10:00 02/13/18 10:41 Lovenox - SQ 40 mg DAILY LUCIO Administration Folic Acid 1 mg 02/13/18 10:00 02/13/18 10:41 Folic Acid - PO 1 mg DAILY LUCIO Administration Lactated Ringer's 1,000 mls @ 150 mls/hr 02/11/18 22:15 02/12/18 22:56 Lactated Ringers Solution IV 150 mls/hr ASDIR LUCIO Administration Morphine Sulfate 4 mg 02/11/18 22:36 02/13/18 10:45 Morphine Sulfate IVPUSH 4 mg Q4H PRN Administration PAIN LEVEL 6-10 Multivitamins/Minerals/Vitamin C 1 tab 02/13/18 10:00 02/13/18 10:41 Tab-A-Vit - PO 1 tab DAILY LUCIO Administration Ondansetron HCl 4 mg 02/11/18 22:11 02/12/18 00:03 Zofran Injection IVPUSH 4 mg Q6H PRN Administration NAUSEA Thiamine HCl 200 mg 02/13/18 10:00 02/13/18 10:41 Vitamin B1 Injection - IM 200 mg DAILY LUCIO Administration ASSESSMENT/PLAN: Patient is a 42 yo woman with pmh chronic pancreatitis, alcohol abuse and 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 GI: Acute pancreatitis Lipase trending down Start on Zosyn for increased WBC and abdominal pain CT results noted, 25 weight loss in over year, unintentional Oncology consult GI following Tumor markers elevated Heme: Leukocytosis, increased from yesterday and now with increased abdominal pain. Blood cutlures sent. Started on Zosysn as noted above Psyche No signs of withdrawal on exam Mildly anxious about Ct scan results and possible malignancy On Librium, CIWA 1 full code Visit type - Emergency Visit Emergency Visit: Yes ED Registration Date: 02/11/18 Care time: The patient presented to the Emergency Department on the above date and was hospitalized for further evaluation of their emergent condition. - New Patient This patient is new to me today: Yes Date on this admission: 02/13/18 - Critical Care Critical Care patient: No - Discharge Referral Referred to [facility] Med P.C.: No
[2018-02-13] MEDS ORDERED: MORPHINE SULFATE 10 MG/1 ML *VIAL IVPUSH ONE (12:20)
--- NOTE | 2018-02-13 12:34 | CON.ID ---
Consult Consult Specialty:: infectious diseases Referred by:: Mirlande Reason for Consultation:: fevers - History of Present Illness Chief Complaint: abd pain,fever History of Present Illness: 42 yo woman with pmh chronic pancreatitis, alcohol abuse and suspicious pancreatic head mass was admitted with one week of persistent abdominal and back pain consistent with prior episodes of pancreatitis. patient was admitted and worked up and gi on board patient has started to spike fevers and i was called into evaluate the cause of fevers currently patient is stable but having abd pain and discomfort patient has no complaints she was supposed to follow with [facility] for her pancreatic masses which she did not - History Source History Provided By: Patient Limitations to Obtaining History: No Limitations - Past Medical History Gastrointestinal: Yes: Pancreatitis ...LMP: 01/04/18 Psych: Yes: Addictions (Alcoholism) - Past Surgical History Past Surgical History: Yes: Hernia Repair (02/16), 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) - Alcohol/Substance Use Hx Alcohol Use: Yes (occas) History of Substance Use: reports: Marijuana - Smoking History Smoking history: Current every day smoker Have you smoked in the past 12 months: Yes Aproximately how many cigarettes per day: 8 - Social History Usual Living Arrangement: Alone ADL: Independent 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 History of Recent Travel: No Home Medications - Allergies Allergies/Adverse Reactions: Allergies Allergy/AdvReac Type Severity Reaction Status Date / Time No Known Allergies Allergy Verified 02/11/18 16:25 - Home Medications Home Medications: Ambulatory Orders NK [No Known Home Medication] 02/11/18 Family Disease History - Family Disease History Family Disease History: Other: Father (does not know his medical history), Mother (alive: healthy), Brother ( in infancy: crib ), Daughter (1 healthy daughter) Review of Systems - Review of Systems Constitutional: reports: Fever Eyes: reports: No Symptoms HENT: reports: No Symptoms Neck: reports: No Symptoms Cardiovascular: reports: No Symptoms Respiratory: reports: No Symptoms Gastrointestinal: reports: Abdominal Pain Musculoskeletal: reports: No Symptoms Integumentary: reports: No Symptoms Neurological: reports: No Symptoms Endocrine: reports: No Symptoms Hematology/Lymphatic: reports: No Symptoms Psychiatric: reports: No Symptoms Physical Exam Vital Signs: Vital Signs Temperature 98.3 F 02/12/18 23:00 Pulse Rate 74 02/12/18 23:00 Respiratory Rate 18 02/12/18 23:00 Blood Pressure 143/75 02/12/18 23:00 O2 Sat by Pulse Oximetry (%) 100 02/12/18 21:00 Constitutional: Yes: Calm, Mild Distress, Thin Eyes: Yes: Conjunctiva Clear HENT: Yes: Atraumatic Neck: Yes: Supple, Trachea Midline Cardiovascular: Yes: Regular Rate and Rhythm Respiratory: Yes: Regular, CTA Bilaterally Gastrointestinal: Yes: Normal Bowel Sounds, Soft, Tenderness Musculoskeletal: Yes: WNL Extremities: Yes: WNL Neurological: Yes: Alert, Oriented Psychiatric: Yes: Alert, Oriented Labs: CBC, BMP 02/13/18 08:04 02/13/18 06:20 Imaging - Results Cat Scan: Report Reviewed, Image Reviewed Assessment/Plan 42 year old female with pmh chronic pancreatitis, alcohol abuse and 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 also worry is that if these pancreatic psudocyst ,are they getting infected which is causing her to spike fever Plan: 1. Acute Pancreatitis 2. Pancreatic pseudocyst 3. Alcohol withdrawal 4. Thrombocytosis plan will start patient on zosyn if she continues to spike fevers we will repeat the ct scan close follow up for fevers and rest of the labs
[2018-02-13] MEDS ORDERED: PIPERACILLIN/TAZOBACTAM 3.375 GM VIAL IVPB ONE ×2 (14:30→17:30)
[2018-02-13] MEDS ORDERED: DEXTROSE 5%-WATER - 50 ML IVPB ONE ×2 (14:30→17:30)
[2018-02-13] MEDS: PIPERACILLIN/TAZOB 3.375 GM 3.375 GM in DEXTROSE 5%-WATER - 50 ML IVPB SCH ×2 (14:30→17:58)
--- NOTE | 2018-02-13 16:41 | PN ---
Progress Note, Physician History of Present Illness: Still c/o epigastric pain. Tolerating clears. NAD. CT findings noted. - Current Medication List Current Medications: Active Medications Chlordiazepoxide HCl (Librium -) 50 mg PO Q6H PRN PRN Reason: WITHDRAWAL(CONT SUBST) Enoxaparin Sodium (Lovenox -) 40 mg SQ DAILY [facility]IO Last Admin: 02/13/18 10:41 Dose: 40 mg Folic Acid (Folic Acid -) 1 mg PO DAILY LUCIO Last Admin: 02/13/18 10:41 Dose: 1 mg Lactated Ringer's (Lactated Ringers Solution) 1,000 mls @ 150 mls/hr IV ASDIR LUCIO Last Admin: 02/12/18 22:56 Dose: 150 mls/hr Piperacillin Sod/Tazobactam (Sod 3.375 gm/ Dextrose) 50 mls @ 100 mls/hr IVPB Q8H-IV LUCIO; Protocol Last Admin: 02/13/18 14:30 Dose: 100 mls/hr Morphine Sulfate (Morphine Sulfate) 4 mg IVPUSH Q4H PRN PRN Reason: PAIN LEVEL 6-10 Last Admin: 02/13/18 14:49 Dose: 4 mg Multivitamins/Minerals/Vitamin C (Tab-A-Vit -) 1 tab PO DAILY LUCIO Last Admin: 02/13/18 10:41 Dose: 1 tab Ondansetron HCl (Zofran Injection) 4 mg IVPUSH Q6H PRN PRN Reason: NAUSEA Last Admin: 02/12/18 00:03 Dose: 4 mg Thiamine HCl (Vitamin B1 Injection -) 200 mg IM DAILY LUCIO Last Admin: 02/13/18 10:41 Dose: 200 mg - Objective Vital Signs: Vital Signs Temperature 97.9 F 02/13/18 14:00 Pulse Rate 73 02/13/18 14:00 Respiratory Rate 18 02/13/18 09:00 Blood Pressure 152/94 02/13/18 14:00 O2 Sat by Pulse Oximetry (%) 100 02/13/18 09:00 Constitutional: Yes: No Distress, Calm Eyes: Yes: Conjunctiva Clear Gastrointestinal: Yes: Normal Bowel Sounds, Soft, Tenderness (epig) Neurological: Yes: Alert, Oriented Labs: CBC, BMP 02/13/18 08:04 02/13/18 06:20 Laboratory Last Values WBC 18.8 K/mm3 (4.0-10.0) H D 02/13/18 08:04 RBC 4.39 M/mm3 (3.60-5.2) 02/13/18 08:04 Hgb 12.1 GM/dL (10.7-15.3) 02/13/18 08:04 Hct 37.3 % (32.4-45.2) 02/13/18 08:04 MCV 84.8 fl (80-96) 02/13/18 08:04 MCH 27.6 pg (25.7-33.7) 02/13/18 08:04 MCHC 32.6 g/dl (32.0-36.0) 02/13/18 08:04 RDW 17.1 % (11.6-15.6) H 02/13/18 08:04 Plt Count 526 K/MM3 (134-434) H 02/13/18 08:04 MPV 8.9 fl (7.5-11.1) 02/13/18 08:04 Absolute Neuts (auto) 15.4 # 02/13/18 08:04 Neutrophils % 81.8 % (42.8-82.8) 02/13/18 08:04 Lymphocytes % 11.4 % (8-40) D 02/13/18 08:04 Monocytes % 6.2 % (3.8-10.2) 02/13/18 08:04 Eosinophils % 0.3 % (0-4.5) 02/13/18 08:04 Basophils % 0.3 % (0-2.0) 02/13/18 08:04 Nucleated RBC % 0 % (0-0) 02/13/18 08:04 Sodium 137 mmol/L (136-145) 02/13/18 06:20 Potassium 3.7 mmol/L (3.5-5.1) 02/13/18 06:20 Chloride 101 mmol/L (98-107) 02/13/18 06:20 Carbon Dioxide 23 mmol/L (21-32) 02/13/18 06:20 Anion Gap 13 (8-16) 02/13/18 06:20 BUN 3 mg/dL (7-18) L 02/13/18 06:20 Creatinine 0.3 mg/dL (0.55-1.02) L 02/13/18 06:20 Creat Clearance w eGFR > 60 (>60) 02/13/18 06:20 Random Glucose 66 mg/dL (74-106) L 02/13/18 06:20 Calcium 9.1 mg/dL (8.5-10.1) 02/13/18 06:20 Phosphorus 3.4 mg/dL (2.5-4.9) 02/12/18 06:00 Magnesium 1.8 mg/dL (1.8-2.4) 02/13/18 06:20 Total Bilirubin 0.7 mg/dL (0.2-1.0) 02/13/18 06:20 AST 19 U/L (15-37) 02/13/18 06:20 ALT 27 U/L (12-78) 02/13/18 06:20 Alkaline Phosphatase 170 U/L (45-117) H 02/13/18 06:20 LD Total Cancelled 02/11/18 16:48 Total Protein 6.7 g/dl (6.4-8.2) 02/13/18 06:20 Albumin 3.0 g/dl (3.4-5.0) L 02/13/18 06:20 Triglycerides 83 mg/dL (35-160) 02/12/18 06:00 Cholesterol 101 mg/dL (50-200) 02/12/18 06:00 Total LDL Cholesterol 36 mg/dL (5-100) 02/12/18 06:00 HDL Cholesterol 60 mg/dL (40-60) 02/12/18 06:00 Lipase 2478 U/L (73-393) H 02/13/18 06:20 CA 19-9 Antigen 77 U/mL (0-35) H 02/12/18 06:00 Urine Color Jessica 02/11/18 17:10 Urine Appearance Slcloudy 02/11/18 17:10 Urine pH 5.0 (5.0-8.0) 02/11/18 17:10 Ur Specific [place] 1.039 (1.001-1.035) H 02/11/18 17:10 Urine Protein 1+ (NEGATIVE) H 02/11/18 17:10 Urine Glucose (UA) Negative (NEGATIVE) 02/11/18 17:10 Urine Ketones Trace (NEGATIVE) H 02/11/18 17:10 Urine Blood Negative (NEGATIVE) 02/11/18 17:10 Urine Nitrite Negative (NEGATIVE) 02/11/18 17:10 Urine Bilirubin Negative (<2.0 mg/dL) 02/11/18 17:10 Urine Urobilinogen 2.0 mg/dL (0.2-1.0) H 02/11/18 17:10 Ur Leukocyte Esterase Negative (NEGATIVE) 02/11/18 17:10 Urine WBC (Auto) 2 /hpf (3-5) 02/11/18 17:10 Urine RBC (Auto) 5 /hpf (0-3) 02/11/18 17:10 Ur Epithelial Cells Moderate /HPF (FEW) 02/11/18 17:10 Urine Mucus Many 02/11/18 17:10 Urine HCG, Qual Negative 02/11/18 17:10 - ....Imaging Cat Scan: Report Reviewed Problem List - Problems (1) Pancreatic mass Code(s): K86.9 - DISEASE OF PANCREAS, UNSPECIFIED (2) Alcohol dependence with uncomplicated withdrawal Code(s): F10.230 - ALCOHOL DEPENDENCE WITH WITHDRAWAL, UNCOMPLICATED (3) Pancreatitis, acute Code(s): K85.90 - ACUTE PANCREATITIS WITHOUT NECROSIS OR INFECTION, UNSP Qualifiers: Pancreatitis type: unspecified pancreatitis type Acute pancreatitis complication: unspecified Qualified Code(s): K85.90 - Acute pancreatitis without necrosis or infection, unspecified Assessment/Plan Agree with current management of acute, mild pancreatitis. CA 19-19, AFP. Discussed with the patient. Monitor for signs/symptoms of withdrawal. Substance abuse counselling. Advance diet as tolerated. Suspect CA 19-9 to be of inflammatory origin, repeat in 1 week.
[2018-02-13] MEDS ORDERED: morphine SULFATE 4 MG/ML VIAL IVPUSH ONE (16:45)
[2018-02-13] MEDS: LACTATED RINGERS SOLUTION 1,000 ML IV SCH (21:58)
[2018-02-14] MEDS ORDERED: DEXTROSE 5%-WATER - 50 ML IVPB ONE ×3 (01:27→17:07)
[2018-02-14] MEDS ORDERED: PIPERACILLIN/TAZOBACTAM 3.375 GM VIAL IVPB ONE ×3 (01:27→17:07)
[2018-02-14] MEDS: PIPERACILLIN/TAZOB 3.375 GM 3.375 GM in DEXTROSE 5%-WATER - 50 ML IVPB SCH ×3 (01:40→17:10)
[2018-02-14] MEDS: morphine SULFATE 4 MG/ML VIAL IVPUSH PRN ×5 (02:23→22:41)
[2018-02-14] MEDS: LACTATED RINGERS SOLUTION 1,000 ML IV SCH (05:56)
[2018-02-14 08:23] LABS: BASO % 0.4 % (0-2.0); EOS % 0.4 % (0-4.5); HEMATOCRIT 34.9 % (32.4-45.2); HEMOGLOBIN 11.7 GM/dL (10.7-15.3); LYMPH % 16.2 % (8-40); MCH 28.2 pg (25.7-33.7); MCHC 33.5 g/dl (32.0-36.0); MEAN CELL VOLUME 84.4 fl (80-96); MEAN PLT VOLUME 8.6 fl (7.5-11.1); MONO % 7.8 % (3.8-10.2); NEUT % 75.2 % (42.8-82.8); PLATELET COUNT 482 K/MM3 (134-434); RBC 4.14 M/mm3 (3.60-5.2); WHITE BLOOD COUNT 12.4 K/mm3 (4.0-10.0)
[2018-02-14 09:02] LABS: CHLORIDE 102 mmol/L (98-107); SODIUM 140 mmol/L (136-145)
[2018-02-14 09:15] LABS: ALBUMIN 2.8 g/dl (3.4-5.0); ALK PHOS 148 U/L (45-117); ANION GAP 10 (8-16); BILIRUBIN,TOTAL 0.6 mg/dL (0.2-1.0); BLOOD UREA NITROGEN 3 mg/dL (7-18); CO2 28 mmol/L (21-32); CREATININE 0.4 mg/dL (0.55-1.02); GLUCOSE,RANDOM 84 mg/dL (74-106); MAGNESIUM 1.7 mg/dL (1.8-2.4); SGOT/AST 20 U/L (15-37); SGPT/ALT 24 U/L (12-78); TOT PROT 6.3 g/dl (6.4-8.2)
--- NOTE | 2018-02-14 09:38 | PN ---
Progress Note, Physician History of Present Illness: Still c/o epigastric pain. Tolerating clears. NAD. CT, CA 19-9 noted. - Current Medication List Current Medications: Active Medications Chlordiazepoxide HCl (Librium -) 50 mg PO Q6H PRN PRN Reason: WITHDRAWAL(CONT SUBST) Enoxaparin Sodium (Lovenox -) 40 mg SQ DAILY [facility] Last Admin: 02/13/18 10:41 Dose: 40 mg Folic Acid (Folic Acid -) 1 mg PO DAILY [facility] Last Admin: 02/13/18 10:41 Dose: 1 mg Lactated Ringer's (Lactated Ringers Solution) 1,000 mls @ 150 mls/hr IV ASDIR LUCIO Last Admin: 02/14/18 05:56 Dose: 150 mls/hr Piperacillin Sod/Tazobactam (Sod 3.375 gm/ Dextrose) 50 mls @ 100 mls/hr IVPB Q8H-IV LUCIO; Protocol Last Admin: 02/14/18 01:40 Dose: 100 mls/hr Morphine Sulfate (Morphine Sulfate) 4 mg IVPUSH Q4H PRN PRN Reason: PAIN LEVEL 6-10 Last Admin: 02/14/18 02:23 Dose: 4 mg Multivitamins/Minerals/Vitamin C (Tab-A-Vit -) 1 tab PO DAILY [facility] Last Admin: 02/13/18 10:41 Dose: 1 tab Ondansetron HCl (Zofran Injection) 4 mg IVPUSH Q6H PRN PRN Reason: NAUSEA Last Admin: 02/12/18 00:03 Dose: 4 mg Thiamine HCl (Vitamin B1 Injection -) 200 mg IM DAILY [facility] Last Admin: 02/13/18 10:41 Dose: 200 mg - Objective Vital Signs: Vital Signs Temperature 98.6 F 02/14/18 05:36 Pulse Rate 70 02/14/18 05:36 Respiratory Rate 20 02/14/18 05:36 Blood Pressure 145/84 02/14/18 05:36 O2 Sat by Pulse Oximetry (%) 100 02/13/18 21:00 Constitutional: Yes: No Distress, Calm, Cachectic, Thin Eyes: Yes: Conjunctiva Clear HENT: Yes: Atraumatic Neck: Yes: Supple Neurological: Yes: Alert, Oriented. No: Asterixis, Confusion, Lethargy Labs: CBC, BMP 02/14/18 07:00 06/15/18 07:00 Laboratory Last Values WBC 12.4 K/mm3 (4.0-10.0) H D 02/14/18 07:00 RBC 4.14 M/mm3 (3.60-5.2) 02/14/18 07:00 Hgb 11.7 GM/dL (10.7-15.3) 02/14/18 07:00 Hct 34.9 % (32.4-45.2) 02/14/18 07:00 MCV 84.4 fl (80-96) 02/14/18 07:00 MCH 28.2 pg (25.7-33.7) 02/14/18 07:00 MCHC 33.5 g/dl (32.0-36.0) 02/14/18 07:00 RDW 17.0 % (11.6-15.6) H 02/14/18 07:00 Plt Count 482 K/MM3 (134-434) H 02/14/18 07:00 MPV 8.6 fl (7.5-11.1) 02/14/18 07:00 Absolute Neuts (auto) 9.3 # 02/14/18 07:00 Neutrophils % 75.2 % (42.8-82.8) 02/14/18 07:00 Lymphocytes % 16.2 % (8-40) D 02/14/18 07:00 Monocytes % 7.8 % (3.8-10.2) 02/14/18 07:00 Eosinophils % 0.4 % (0-4.5) 02/14/18 07:00 Basophils % 0.4 % (0-2.0) 02/14/18 07:00 Nucleated RBC % 0 % (0-0) 02/14/18 07:00 Sodium 140 mmol/L (136-145) 02/14/18 07:00 Potassium 4.0 mmol/L (3.5-5.1) 02/14/18 07:00 Chloride 102 mmol/L (98-107) 02/14/18 07:00 Carbon Dioxide 28 mmol/L (21-32) 02/14/18 07:00 Anion Gap 10 (8-16) 02/14/18 07:00 BUN 3 mg/dL (7-18) L 02/14/18 07:00 Creatinine 0.4 mg/dL (0.55-1.02) L 02/14/18 07:00 Creat Clearance w eGFR > 60 (>60) 02/14/18 07:00 Random Glucose 84 mg/dL (74-106) 02/14/18 07:00 Calcium 9.0 mg/dL (8.5-10.1) 02/14/18 07:00 Phosphorus 3.4 mg/dL (2.5-4.9) 02/12/18 06:00 Magnesium 1.7 mg/dL (1.8-2.4) L 02/14/18 07:00 Total Bilirubin 0.6 mg/dL (0.2-1.0) 02/14/18 07:00 AST 20 U/L (15-37) 02/14/18 07:00 ALT 24 U/L (12-78) 02/14/18 07:00 Alkaline Phosphatase 148 U/L (45-117) H 02/14/18 07:00 LD Total Cancelled 02/11/18 16:48 Total Protein 6.3 g/dl (6.4-8.2) L 02/14/18 07:00 Albumin 2.8 g/dl (3.4-5.0) L 02/14/18 07:00 Triglycerides 83 mg/dL (35-160) 02/12/18 06:00 Cholesterol 101 mg/dL (50-200) 02/12/18 06:00 Total LDL Cholesterol 36 mg/dL (5-100) 02/12/18 06:00 HDL Cholesterol 60 mg/dL (40-60) 02/12/18 06:00 Lipase 2478 U/L (73-393) H 02/13/18 06:20 CA 19-9 Antigen 77 U/mL (0-35) H 02/12/18 06:00 Urine Color Jessica 02/11/18 17:10 Urine Appearance Slcloudy 02/11/18 17:10 Urine pH 5.0 (5.0-8.0) 02/11/18 17:10 Ur Specific [place] 1.039 (1.001-1.035) H 02/11/18 17:10 Urine Protein 1+ (NEGATIVE) H 02/11/18 17:10 Urine Glucose (UA) Negative (NEGATIVE) 02/11/18 17:10 Urine Ketones Trace (NEGATIVE) H 02/11/18 17:10 Urine Blood Negative (NEGATIVE) 02/11/18 17:10 Urine Nitrite Negative (NEGATIVE) 02/11/18 17:10 Urine Bilirubin Negative (<2.0 mg/dL) 02/11/18 17:10 Urine Urobilinogen 2.0 mg/dL (0.2-1.0) H 02/11/18 17:10 Ur Leukocyte Esterase Negative (NEGATIVE) 02/11/18 17:10 Urine WBC (Auto) 2 /hpf (3-5) 02/11/18 17:10 Urine RBC (Auto) 5 /hpf (0-3) 02/11/18 17:10 Ur Epithelial Cells Moderate /HPF (FEW) 02/11/18 17:10 Urine Mucus Many 02/11/18 17:10 Urine HCG, Qual Negative 02/11/18 17:10 Problem List - Problems (1) Pancreatic mass Code(s): K86.9 - DISEASE OF PANCREAS, UNSPECIFIED (2) Alcohol dependence with uncomplicated withdrawal Code(s): F10.230 - ALCOHOL DEPENDENCE WITH WITHDRAWAL, UNCOMPLICATED (3) Pancreatitis, acute Code(s): K85.90 - ACUTE PANCREATITIS WITHOUT NECROSIS OR INFECTION, UNSP Qualifiers: Pancreatitis type: unspecified pancreatitis type Acute pancreatitis complication: unspecified Qualified Code(s): K85.90 - Acute pancreatitis without necrosis or infection, unspecified Assessment/Plan Agree with current management of acute, mild pancreatitis. Advance diet as tolerated. Suspect CA 19-9 to be of inflammatory origin, repeat.
--- NOTE | 2018-02-14 09:54 | PN ---
Physical Exam: SUBJECTIVE: Patient seen and examined. She still has abdominal pain, R quadrant with reference to R shoulder. Denies sob OBJECTIVE: Vital Signs Period Temp Pulse Resp BP Sys/Mccann Pulse Ox Last 24 Hr 97.9 F-98.9 F 70-73 20-20 130-152/84-96 100 PE Neuro: alert, awake, cn 2-12intact Pulm: diminished, crackles r base CV: s1 s2 rrr no mrg Abd: s tender to palpation ExT: no le edema, R shoulder tenderness Laboratory Results - last 24 hr 02/13/18 02/14/18 02/14/18 06:20 07:00 07:00 WBC 12.4 H D RBC 4.14 Hgb 11.7 Hct 34.9 MCV 84.4 MCH 28.2 MCHC 33.5 RDW 17.0 H Plt Count 482 H MPV 8.6 Absolute Neuts (auto) 9.3 Neutrophils % 75.2 Lymphocytes % 16.2 D Monocytes % 7.8 Eosinophils % 0.4 Basophils % 0.4 Nucleated RBC % 0 Sodium 137 140 Potassium 3.7 4.0 Chloride 101 102 Carbon Dioxide 23 28 Anion Gap 13 10 BUN 3 L 3 L Creatinine 0.3 L 0.4 L Creat Clearance w eGFR > 60 > 60 Random Glucose 66 L 84 Calcium 9.1 9.0 Magnesium 1.8 1.7 L Total Bilirubin 0.7 0.6 AST 19 20 ALT 27 24 Alkaline Phosphatase 170 H 148 H Total Protein 6.7 6.3 L Albumin 3.0 L 2.8 L Lipase 2478 H Active Medications Generic Name Dose Route Start Last Admin Trade Name Freq PRN Reason Stop Dose Admin Chlordiazepoxide HCl 50 mg 02/11/18 22:39 Librium - PO Q6H PRN WITHDRAWAL(CONT SUBST) Enoxaparin Sodium 40 mg 02/12/18 10:00 02/13/18 10:41 Lovenox - SQ 40 mg DAILY [facility] Administration Folic Acid 1 mg 02/13/18 10:00 02/13/18 10:41 Folic Acid - PO 1 mg DAILY [facility] Administration Lactated Ringer's 1,000 mls @ 150 mls/hr 02/11/18 22:15 02/14/18 05:56 Lactated Ringers Solution IV 150 mls/hr ASDIR [facility] Administration Piperacillin Sod/Tazobactam 50 mls @ 100 mls/hr 02/13/18 13:15 02/14/18 01:40 Sod 3.375 gm/ Dextrose IVPB 100 mls/hr Q8H-IV [facility] Administration Protocol Morphine Sulfate 4 mg 02/11/18 22:36 02/14/18 02:23 Morphine Sulfate IVPUSH 4 mg Q4H PRN Administration PAIN LEVEL 6-10 Multivitamins/Minerals/Vitamin C 1 tab 02/13/18 10:00 02/13/18 10:41 Tab-A-Vit - PO 1 tab DAILY [facility] Administration Ondansetron HCl 4 mg 02/11/18 22:11 02/12/18 00:03 Zofran Injection IVPUSH 4 mg Q6H PRN Administration NAUSEA Thiamine HCl 200 mg 02/13/18 10:00 02/13/18 10:41 Vitamin B1 Injection - IM 200 mg DAILY [facility] Administration Assessment: 42 year old female with pmh chronic pancreatitis, alcohol abuse and 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 Plan: 1. Acute Pancreatitis with leukocytosis - Continue Zosyn - Change fluids to NS - Advance to full liquids - CXR if R shoulder pain worsens 2. Pancreatic pseudocyst - CTAP shows multiple pseudocysts, promience of pancreatic head c/w chronic pancreatitis - CA 19-9 noted, repeat in 1 week, could be d/t inflammation 3. Alcohol withdrawal - No signs of withdrawal at this time - Cont librium prn - Folic acid, thiamine, mvi 4. Thrombocytosis - Likely due to above 5 DVT prophylaxis - Heparin 5000u sq tid 6. Hypomagnesemia - Replete 2gm x1 now Visit type - Emergency Visit Emergency Visit: Yes ED Registration Date: 02/11/18 Care time: The patient presented to the Emergency Department on the above date and was hospitalized for further evaluation of their emergent condition. - New Patient This patient is new to me today: No - Critical Care Critical Care patient: No
[2018-02-14] MEDS ORDERED: MAGNESIUM SULF 50% (8.12 MEQ/2 ML-1 GM VIAL) IVPB ONE (09:57)
[2018-02-14] MEDS: SODIUM CHLORIDE 1,000 ML IV SCH (10:00)
[2018-02-14] MEDS: ENOXAPARIN NA (PORCINE) 40 MG/0.4 ML DISP.SYRIN SQ SCH (10:19)
[2018-02-14] MEDS: FOLIC ACID 1 MG TABLET (FP) PO SCH (10:19)
[2018-02-14] MEDS: MULTIVITAMINS (DAILY MVI) TABLET (FP) PO SCH (10:19)
[2018-02-14] MEDS ORDERED: MAGNESIUM SULFATE IN WATER 2 GM/50 ML IVPB IVPB ONE (10:30)
[2018-02-14] MEDS ORDERED: PT OWN MED DRAWER 7, Y5N ONE (10:38)
[2018-02-14] MEDS: THIAMINE HCL 200 MG/2 ML VIAL IM SCH (10:48)
--- NOTE | 2018-02-14 13:30 | PN ---
Progress Note, Physician History of Present Illness: stable afebrile still with abd discomfort no other issues - Current Medication List Current Medications: Active Medications Chlordiazepoxide HCl (Librium -) 50 mg PO Q6H PRN PRN Reason: WITHDRAWAL(CONT SUBST) Enoxaparin Sodium (Lovenox -) 40 mg SQ DAILY [facility] Last Admin: 02/14/18 10:19 Dose: 40 mg Folic Acid (Folic Acid -) 1 mg PO DAILY [facility] Last Admin: 02/14/18 10:19 Dose: 1 mg Piperacillin Sod/Tazobactam (Sod 3.375 gm/ Dextrose) 50 mls @ 100 mls/hr IVPB Q8H-IV [facility]; Protocol Last Admin: 02/14/18 10:19 Dose: 100 mls/hr Sodium Chloride (Normal Saline -) 1,000 mls @ 100 mls/hr IV ASDIR [facility] Morphine Sulfate (Morphine Sulfate) 4 mg IVPUSH Q4H PRN PRN Reason: PAIN LEVEL 6-10 Last Admin: 02/14/18 10:18 Dose: 4 mg Multivitamins/Minerals/Vitamin C (Tab-A-Vit -) 1 tab PO DAILY [facility] Last Admin: 02/14/18 10:19 Dose: 1 tab Ondansetron HCl (Zofran Injection) 4 mg IVPUSH Q6H PRN PRN Reason: NAUSEA Last Admin: 02/12/18 00:03 Dose: 4 mg Thiamine HCl (Vitamin B1 Injection -) 200 mg IM DAILY [facility] Last Admin: 02/14/18 10:48 Dose: 200 mg - Objective Vital Signs: Vital Signs Temperature 98.6 F 02/14/18 05:36 Pulse Rate 70 02/14/18 05:36 Respiratory Rate 20 02/14/18 05:36 Blood Pressure 145/84 02/14/18 05:36 O2 Sat by Pulse Oximetry (%) 100 02/13/18 21:00 Constitutional: Yes: Calm, Mild Distress Cardiovascular: Yes: Regular Rate and Rhythm Respiratory: Yes: Regular, CTA Bilaterally Gastrointestinal: Yes: Normal Bowel Sounds, Soft Musculoskeletal: Yes: WNL Extremities: Yes: WNL Neurological: Yes: Alert, Oriented Psychiatric: Yes: Alert, Oriented Labs: CBC, BMP 02/14/18 07:00 02/14/18 07:00 Assessment/Plan 42 year old female with pmh chronic pancreatitis, alcohol abuse and 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 Plan: 1. Acute Pancreatitis 2. Pancreatic pseudocyst 3. Alcohol withdrawal 4. Thrombocytosis plan continue abx continue monitoring rest as per the team gi following
[2018-02-15] MEDS ORDERED: PIPERACILLIN/TAZOBACTAM 3.375 GM VIAL IVPB ONE ×3 (02:34→16:58)
[2018-02-15] MEDS ORDERED: DEXTROSE 5%-WATER - 50 ML IVPB ONE ×3 (02:35→16:58)
[2018-02-15] MEDS: PIPERACILLIN/TAZOB 3.375 GM 3.375 GM in DEXTROSE 5%-WATER - 50 ML IVPB SCH ×3 (02:42→17:05)
[2018-02-15] MEDS: SODIUM CHLORIDE 1,000 ML IV SCH ×4 (02:43→21:33)
[2018-02-15] MEDS: morphine SULFATE 4 MG/ML VIAL IVPUSH PRN ×5 (04:21→21:24)
--- NOTE | 2018-02-15 09:43 | PN ---
Progress Note, Physician History of Present Illness: continues to remain afebrile abd pain continues - Current Medication List Current Medications: Active Medications Enoxaparin Sodium (Lovenox -) 40 mg SQ DAILY [facility] Last Admin: 02/14/18 10:19 Dose: 40 mg Folic Acid (Folic Acid -) 1 mg PO DAILY [facility] Last Admin: 02/14/18 10:19 Dose: 1 mg Piperacillin Sod/Tazobactam (Sod 3.375 gm/ Dextrose) 50 mls @ 100 mls/hr IVPB Q8H-IV [facility]; Protocol Last Admin: 02/15/18 02:42 Dose: 100 mls/hr Sodium Chloride (Normal Saline -) 1,000 mls @ 100 mls/hr IV ASDIR [facility] Last Admin: 02/15/18 02:43 Dose: 100 mls/hr Morphine Sulfate (Morphine Sulfate) 4 mg IVPUSH Q4H PRN PRN Reason: PAIN LEVEL 6-10 Last Admin: 02/15/18 08:21 Dose: 4 mg Multivitamins/Minerals/Vitamin C (Tab-A-Vit -) 1 tab PO DAILY [facility] Last Admin: 02/14/18 10:19 Dose: 1 tab Ondansetron HCl (Zofran Injection) 4 mg IVPUSH Q6H PRN PRN Reason: NAUSEA Last Admin: 02/12/18 00:03 Dose: 4 mg Thiamine HCl (Vitamin B1 Injection -) 200 mg IM DAILY [facility] Last Admin: 02/14/18 10:48 Dose: 200 mg - Objective Vital Signs: Vital Signs Temperature 98.6 F 02/15/18 08:05 Pulse Rate 67 02/15/18 08:05 Respiratory Rate 16 02/15/18 08:05 Blood Pressure 150/97 02/15/18 08:05 O2 Sat by Pulse Oximetry (%) 100 02/14/18 21:00 Constitutional: Yes: No Distress, Calm Cardiovascular: Yes: Regular Rate and Rhythm Respiratory: Yes: Regular, CTA Bilaterally Gastrointestinal: Yes: Normal Bowel Sounds, Soft Musculoskeletal: Yes: WNL Extremities: Yes: WNL Neurological: Yes: Alert, Oriented Psychiatric: Yes: Alert, Oriented Labs: CBC, BMP 02/14/18 07:00 02/14/18 07:00 Assessment/Plan 42 year old female with pmh chronic pancreatitis, alcohol abuse and 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 wbc trending down Plan: 1. Acute Pancreatitis 2. Pancreatic pseudocyst 3. Alcohol withdrawal 4. Thrombocytosis 5 leukocytosis plan continue abx will see wbc if wbc continues to decrease will deescalte if wbc jumps up and fever then reimaging rest as per the team
[2018-02-15] MEDS ORDERED: PT OWN MED DRAWER 7, Y5N ONE (10:18)
[2018-02-15] MEDS: ENOXAPARIN NA (PORCINE) 40 MG/0.4 ML DISP.SYRIN SQ SCH (10:22)
[2018-02-15] MEDS: FOLIC ACID 1 MG TABLET (FP) PO SCH (10:23)
[2018-02-15] MEDS: THIAMINE HCL 200 MG/2 ML VIAL IM SCH (10:23)
[2018-02-15] MEDS: MULTIVITAMINS (DAILY MVI) TABLET (FP) PO SCH (10:23)
[2018-02-15] MEDS ORDERED: MAGNESIUM SULF 50% (8.12 MEQ/2 ML-1 GM VIAL) IVPB ONE (12:19)
--- NOTE | 2018-02-15 12:20 | PN ---
Physical Exam: SUBJECTIVE: Patient seen and examined. States abdominal pain is improved, however intermittent, no n/v. OBJECTIVE: Vital Signs Period Temp Pulse Resp BP Sys/Mccann Pulse Ox Last 24 Hr 97.8 F-98.9 F 67-80 16-20 126-150/70-97 100 PE Neuro: alert, awake, cn 2-12intact Pulm: diminished, no sob CV: s1 s2 rrr no mrg Abd: ruq tenderness soft + bs ExT: no le edema Active Medications Generic Name Dose Route Start Last Admin Trade Name Freq PRN Reason Stop Dose Admin Enoxaparin Sodium 40 mg 02/12/18 10:00 02/15/18 10:22 Lovenox - SQ 40 mg DAILY [facility] Administration Folic Acid 1 mg 02/13/18 10:00 02/15/18 10:23 Folic Acid - PO 1 mg DAILY [facility] Administration Piperacillin Sod/Tazobactam 50 mls @ 100 mls/hr 02/13/18 13:15 02/15/18 10:22 Sod 3.375 gm/ Dextrose IVPB 100 mls/hr Q8H-IV [facility] Administration Protocol Sodium Chloride 1,000 mls @ 100 mls/hr 02/14/18 10:00 02/15/18 10:24 Normal Saline - IV Not Given ASDIR [facility] Morphine Sulfate 4 mg 02/15/18 04:10 02/15/18 08:21 Morphine Sulfate IVPUSH 4 mg Q4H PRN Administration PAIN LEVEL 6-10 Multivitamins/Minerals/Vitamin C 1 tab 02/13/18 10:00 02/15/18 10:23 Tab-A-Vit - PO 1 tab DAILY [facility] Administration Ondansetron HCl 4 mg 02/11/18 22:11 02/12/18 00:03 Zofran Injection IVPUSH 4 mg Q6H PRN Administration NAUSEA Thiamine HCl 200 mg 02/13/18 10:00 02/15/18 10:23 Vitamin B1 Injection - IM 200 mg DAILY [facility] Administration Assessment: 42 year old female with pmh chronic pancreatitis, alcohol abuse and 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 Plan: 1. Acute Pancreatitis with leukocytosis - WBC improving - Continue Zosyn - Continue IVF - Advance to soft diet 2. Pancreatic pseudocyst - CTAP shows multiple pseudocysts, promience of pancreatic head c/w chronic pancreatitis - CA 19-9 noted, repeat in 1 week, could be d/t inflammation 3. Alcohol withdrawal - No signs of withdrawal at this time - Cont librium prn - Folic acid, thiamine, mvi 4. Thrombocytosis - Likely due to above 5 DVT prophylaxis - Heparin 5000u sq tid 6. Hypomagnesemia - Replete 2gm x1 today Visit type - Emergency Visit Emergency Visit: Yes ED Registration Date: 02/11/18 Care time: The patient presented to the Emergency Department on the above date and was hospitalized for further evaluation of their emergent condition. - New Patient This patient is new to me today: No - Critical Care Critical Care patient: No
[2018-02-15] MEDS ORDERED: MAGNESIUM SULFATE IN WATER 2 GM/50 ML IVPB IVPB ONE (13:00)
[2018-02-16] MEDS ORDERED: DEXTROSE 5%-WATER - 50 ML IVPB ONE ×2 (01:52→09:58)
[2018-02-16] MEDS ORDERED: PIPERACILLIN/TAZOBACTAM 3.375 GM VIAL IVPB ONE ×2 (01:52→09:57)
[2018-02-16] MEDS: morphine SULFATE 4 MG/ML VIAL IVPUSH PRN ×6 (01:58→22:11)
[2018-02-16] MEDS: PIPERACILLIN/TAZOB 3.375 GM 3.375 GM in DEXTROSE 5%-WATER - 50 ML IVPB SCH ×2 (01:59→10:12)
[2018-02-16 07:16] LABS: BASO % 0.5 % (0-2.0); EOS % 0.5 % (0-4.5); HEMATOCRIT 35.2 % (32.4-45.2); HEMOGLOBIN 11.6 GM/dL (10.7-15.3); LYMPH % 20.7 % (8-40); MCH 28.2 pg (25.7-33.7); MEAN CELL VOLUME 85.3 fl (80-96); MEAN PLT VOLUME 8.8 fl (7.5-11.1); MONO % 7.8 % (3.8-10.2); NEUT % 70.5 % (42.8-82.8); PLATELET COUNT 466 K/MM3 (134-434); RBC 4.12 M/mm3 (3.60-5.2); RDW 16.8 % (11.6-15.6)
[2018-02-16 07:35] LABS: ANION GAP 7 (8-16); CALCIUM 9.1 mg/dL (8.5-10.1); CHLORIDE 103 mmol/L (98-107); CO2 28 mmol/L (21-32); CREATININE 0.4 mg/dL (0.55-1.02); GLUCOSE,RANDOM 94 mg/dL (74-106); POTASSIUM 4.2 mmol/L (3.5-5.1); SODIUM 138 mmol/L (136-145)
[2018-02-16 07:44] LABS: BLOOD UREA NITROGEN 2 mg/dL (7-18)
[2018-02-16] MEDS: ENOXAPARIN NA (PORCINE) 40 MG/0.4 ML DISP.SYRIN SQ SCH (10:08)
[2018-02-16] MEDS: FOLIC ACID 1 MG TABLET (FP) PO SCH (10:16)
[2018-02-16] MEDS: SODIUM CHLORIDE 1,000 ML IV SCH (10:16)
[2018-02-16] MEDS: MULTIVITAMINS (DAILY MVI) TABLET (FP) PO SCH (10:16)
[2018-02-16] MEDS: THIAMINE HCL 200 MG/2 ML VIAL IM SCH (10:41)
[2018-02-16] MEDS ORDERED: PT OWN MED DRAWER 7, Y5N ONE (10:47)
--- NOTE | 2018-02-16 11:10 | PN ---
Progress Note, Physician History of Present Illness: c/o of abd bloating no other issues - Current Medication List Current Medications: Active Medications Enoxaparin Sodium (Lovenox -) 40 mg SQ DAILY [facility] Last Admin: 02/16/18 10:08 Dose: 40 mg Folic Acid (Folic Acid -) 1 mg PO DAILY [facility] Last Admin: 02/16/18 10:16 Dose: 1 mg Piperacillin Sod/Tazobactam (Sod 3.375 gm/ Dextrose) 50 mls @ 100 mls/hr IVPB Q8H-IV [facility]; Protocol Last Admin: 02/16/18 10:12 Dose: 100 mls/hr Sodium Chloride (Normal Saline -) 1,000 mls @ 100 mls/hr IV ASDIR [facility] Last Admin: 02/16/18 10:16 Dose: 100 mls/hr Morphine Sulfate (Morphine Sulfate) 4 mg IVPUSH Q4H PRN PRN Reason: PAIN LEVEL 6-10 Last Admin: 02/16/18 10:03 Dose: 4 mg Multivitamins/Minerals/Vitamin C (Tab-A-Vit -) 1 tab PO DAILY [facility] Last Admin: 02/16/18 10:16 Dose: 1 tab Ondansetron HCl (Zofran Injection) 4 mg IVPUSH Q6H PRN PRN Reason: NAUSEA Last Admin: 02/12/18 00:03 Dose: 4 mg Thiamine HCl (Vitamin B1 Injection -) 200 mg IM DAILY [facility] Last Admin: 02/16/18 10:41 Dose: 200 mg - Objective Vital Signs: Vital Signs Temperature 98.2 F 02/16/18 05:30 Pulse Rate 61 02/16/18 05:30 Respiratory Rate 18 02/16/18 00:00 Blood Pressure 149/97 02/16/18 05:30 O2 Sat by Pulse Oximetry (%) 99 02/15/18 21:00 Constitutional: Yes: No Distress, Calm Cardiovascular: Yes: Regular Rate and Rhythm Respiratory: Yes: Regular, CTA Bilaterally Gastrointestinal: Yes: Normal Bowel Sounds, Soft Musculoskeletal: Yes: WNL Extremities: Yes: WNL Neurological: Yes: Alert, Oriented Psychiatric: Yes: Alert, Oriented Labs: CBC, BMP 02/16/18 07:00 02/16/18 07:00 Assessment/Plan 42 year old female with pmh chronic pancreatitis, alcohol abuse and 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 wbc trending down Plan: 1. Acute Pancreatitis 2. Pancreatic pseudocyst 3. Alcohol withdrawal 4. Thrombocytosis 5 leukocytosis plan will stop abx and see the trend of wbc close watch final plan need to be made rest as per the team
--- NOTE | 2018-02-16 17:02 | PN ---
Physical Exam: SUBJECTIVE: Patient seen and examined. Has periods of abdominal distension after eating. OBJECTIVE: Vital Signs Period Temp Pulse Resp BP Sys/Mccann Pulse Ox Last 24 Hr 97.4 F-98.9 F 61-72 18-20 138-154/92-97 99 PE Neuro: alert, awake, cn 2-12intact Pulm: diminished, no sob CV: s1 s2 rrr no mrg Abd: ruq tenderness soft + bs ExT: no le edema Laboratory Results - last 24 hr 02/16/18 02/16/18 07:00 07:00 WBC 11.0 H RBC 4.12 Hgb 11.6 Hct 35.2 MCV 85.3 MCH 28.2 MCHC 33.0 RDW 16.8 H Plt Count 466 H MPV 8.8 Absolute Neuts (auto) 7.7 Neutrophils % 70.5 Lymphocytes % 20.7 D Monocytes % 7.8 Eosinophils % 0.5 Basophils % 0.5 Nucleated RBC % 0 Sodium 138 Potassium 4.2 Chloride 103 Carbon Dioxide 28 Anion Gap 7 L BUN 2 L* Creatinine 0.4 L Creat Clearance w eGFR > 60 Random Glucose 94 Calcium 9.1 Magnesium 2.0 Active Medications Generic Name Dose Route Start Last Admin Trade Name Freq PRN Reason Stop Dose Admin Enoxaparin Sodium 40 mg 02/12/18 10:00 02/16/18 10:08 Lovenox - SQ 40 mg DAILY [facility] Administration Folic Acid 1 mg 02/13/18 10:00 02/16/18 10:16 Folic Acid - PO 1 mg DAILY [facility] Administration Morphine Sulfate 4 mg 02/15/18 04:10 02/16/18 14:11 Morphine Sulfate IVPUSH 4 mg Q4H PRN Administration PAIN LEVEL 6-10 Multivitamins/Minerals/Vitamin C 1 tab 02/13/18 10:00 02/16/18 10:16 Tab-A-Vit - PO 1 tab DAILY [facility] Administration Ondansetron HCl 4 mg 02/11/18 22:11 02/12/18 00:03 Zofran Injection IVPUSH 4 mg Q6H PRN Administration NAUSEA Thiamine HCl 200 mg 02/13/18 10:00 02/16/18 10:41 Vitamin B1 Injection - IM 200 mg DAILY [facility] Administration Assessment: 42 year old female with pmh chronic pancreatitis, alcohol abuse and 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 Plan: 1. Acute Pancreatitis with leukocytosis - WBC improving - Stop Zosyn, monitor WBC - Decrease IVF - Soft diet 2. Pancreatic pseudocyst - CTAP shows multiple pseudocysts, promience of pancreatic head c/w chronic pancreatitis - CA 19-9 noted, repeat in 1 week, could be d/t inflammation 3. Alcohol withdrawal - No signs of withdrawal at this time - Cont librium prn - Folic acid, thiamine, mvi 4. Thrombocytosis - Likely due to above 5 DVT prophylaxis - Heparin 5000u sq tid 6. Hypomagnesemia - Resolved Visit type - Emergency Visit Emergency Visit: Yes ED Registration Date: 02/11/18 Care time: The patient presented to the Emergency Department on the above date and was hospitalized for further evaluation of their emergent condition. - New Patient This patient is new to me today: No - Critical Care Critical Care patient: No
[2018-02-16] MEDS ORDERED: SODIUM CHLORIDE 1,000 ML IV SCH (17:15)
[2018-02-17] MEDS: morphine SULFATE 4 MG/ML VIAL IVPUSH PRN ×5 (02:33→20:31)
[2018-02-17 08:02] LABS: BASO % 0.3 % (0-2.0); EOS % 0.8 % (0-4.5); HEMATOCRIT 33.8 % (32.4-45.2); HEMOGLOBIN 11.2 GM/dL (10.7-15.3); LYMPH % 19.4 % (8-40); MEAN CELL VOLUME 84.7 fl (80-96); MEAN PLT VOLUME 8.8 fl (7.5-11.1); MONO % 6.7 % (3.8-10.2); NEUT % 72.8 % (42.8-82.8); PLATELET COUNT 492 K/MM3 (134-434); RDW 17.2 % (11.6-15.6); WHITE BLOOD COUNT 13.2 K/mm3 (4.0-10.0)
[2018-02-17] MEDS: MULTIVITAMINS (DAILY MVI) TABLET (FP) PO SCH (10:08)
[2018-02-17] MEDS: THIAMINE HCL 200 MG/2 ML VIAL IM SCH (10:08)
[2018-02-17] MEDS: FOLIC ACID 1 MG TABLET (FP) PO SCH (10:08)
[2018-02-17] MEDS: ENOXAPARIN NA (PORCINE) 40 MG/0.4 ML DISP.SYRIN SQ SCH (10:08)
--- NOTE | 2018-02-17 11:24 | PN ---
Progress Note, Physician History of Present Illness: stable doing well still with abd discomfort - Current Medication List Current Medications: Active Medications Enoxaparin Sodium (Lovenox -) 40 mg SQ DAILY [facility] Last Admin: 02/17/18 10:08 Dose: 40 mg Folic Acid (Folic Acid -) 1 mg PO DAILY [facility] Last Admin: 02/17/18 10:08 Dose: 1 mg Sodium Chloride (Normal Saline -) 1,000 mls @ 75 mls/hr IV ASDIR [facility] Last Admin: 02/17/18 00:34 Dose: 75 mls/hr Morphine Sulfate (Morphine Sulfate) 4 mg IVPUSH Q4H PRN PRN Reason: PAIN LEVEL 6-10 Last Admin: 02/17/18 10:17 Dose: 4 mg Multivitamins/Minerals/Vitamin C (Tab-A-Vit -) 1 tab PO DAILY [facility] Last Admin: 02/17/18 10:08 Dose: 1 tab Ondansetron HCl (Zofran Injection) 4 mg IVPUSH Q6H PRN PRN Reason: NAUSEA Last Admin: 02/12/18 00:03 Dose: 4 mg Thiamine HCl (Vitamin B1 Injection -) 200 mg IM DAILY [facility] Last Admin: 02/17/18 10:08 Dose: 200 mg - Objective Vital Signs: Vital Signs Temperature 98.4 F 02/17/18 08:06 Pulse Rate 69 02/17/18 08:06 Respiratory Rate 18 02/17/18 08:06 Blood Pressure 140/78 02/17/18 08:06 O2 Sat by Pulse Oximetry (%) 99 02/17/18 08:50 Constitutional: Yes: No Distress, Calm Respiratory: Yes: Regular, CTA Bilaterally Gastrointestinal: Yes: Normal Bowel Sounds, Soft Musculoskeletal: Yes: WNL Extremities: Yes: WNL Integumentary: Yes: WNL Wound/Incision: Yes: Clean/Dry Neurological: Yes: Alert, Oriented Psychiatric: Yes: Alert, Oriented Labs: CBC, BMP 02/17/18 07:19 02/16/18 07:00 Assessment/Plan 42 year old female with pmh chronic pancreatitis, alcohol abuse and 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 wbc increasing Plan: 1. Acute Pancreatitis 2. Pancreatic pseudocyst 3. Alcohol withdrawal 4. Thrombocytosis 5 leukocytosis plan will stop abx and see the trend of wbc close watch final plan need to be made rest as per the team
--- NOTE | 2018-02-17 14:07 | PN ---
Physical Exam: SUBJECTIVE: Patient seen and examined. Pt reports decreased less distention after eating. Appears improved, states had large BM OBJECTIVE: Vital Signs Period Temp Pulse Resp BP Sys/Mccann Pulse Ox Last 24 Hr 96.8 F-98.9 F 57-74 18-20 133-148/72-96 99-99 PE Neuro: alert, awake, cn 2-12intact Pulm: diminished, no sob CV: s1 s2 rrr no mrg Abd: ruq tenderness improved, +bs ExT: no le edema Laboratory Results - last 24 hr 02/17/18 02/17/18 07:19 07:19 WBC 13.2 H RBC 4.00 Hgb 11.2 Hct 33.8 MCV 84.7 MCH 28.0 MCHC 33.0 RDW 17.2 H Plt Count 492 H MPV 8.8 Absolute Neuts (auto) 9.6 Neutrophils % 72.8 Lymphocytes % 19.4 Monocytes % 6.7 Eosinophils % 0.8 Basophils % 0.3 Nucleated RBC % 0 Lipase 688 H Active Medications Generic Name Dose Route Start Last Admin Trade Name Evangelista PRN Reason Stop Dose Admin Enoxaparin Sodium 40 mg 02/12/18 10:00 02/17/18 10:08 Lovenox - SQ 40 mg DAILY [facility] Administration Folic Acid 1 mg 02/13/18 10:00 02/17/18 10:08 Folic Acid - PO 1 mg DAILY [facility] Administration Sodium Chloride 1,000 mls @ 75 mls/hr 02/16/18 17:15 02/17/18 00:34 Normal Saline - IV 75 mls/hr ASDIR [facility] Administration Morphine Sulfate 4 mg 02/15/18 04:10 02/17/18 10:17 Morphine Sulfate IVPUSH 4 mg Q4H PRN Administration PAIN LEVEL 6-10 Multivitamins/Minerals/Vitamin C 1 tab 02/13/18 10:00 02/17/18 10:08 Tab-A-Vit - PO 1 tab DAILY [facility] Administration Ondansetron HCl 4 mg 02/11/18 22:11 02/12/18 00:03 Zofran Injection IVPUSH 4 mg Q6H PRN Administration NAUSEA Thiamine HCl 200 mg 02/13/18 10:00 02/17/18 10:08 Vitamin B1 Injection - IM 200 mg DAILY [facility] Administration Assessment: 42 year old female with pmh chronic pancreatitis, alcohol abuse and 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 Plan: 1. Acute Pancreatitis with leukocytosis - WBC increase today - Stop Zosyn 02/16, cont to monitor off abx - Stop fluids - Soft diet 2. Pancreatic pseudocyst - CTAP shows multiple pseudocysts, promience of pancreatic head c/w chronic pancreatitis - CA 19-9 noted - Repeat CA 19-9 tomorrow 3. Alcohol withdrawal - No signs of withdrawal at this time - Cont librium prn - Folic acid, thiamine, mvi 4. Thrombocytosis - Likely due to above 5 DVT prophylaxis - Heparin 5000u sq tid 6. Hypomagnesemia - Resolved Visit type - Emergency Visit Emergency Visit: Yes ED Registration Date: 02/11/18 Care time: The patient presented to the Emergency Department on the above date and was hospitalized for further evaluation of their emergent condition. - New Patient This patient is new to me today: No - Critical Care Critical Care patient: No
[2018-02-18] MEDS: morphine SULFATE 4 MG/ML VIAL IVPUSH PRN ×3 (00:33→10:40)
[2018-02-18 05:56] VITALS: BP 118/76; PULSE 63
[2018-02-18 08:19] LABS: BASO % 0.4 % (0-2.0); EOS % 0.8 % (0-4.5); HEMOGLOBIN 10.9 GM/dL (10.7-15.3); LYMPH % 26.3 % (8-40); MCH 27.2 pg (25.7-33.7); MCHC 31.9 g/dl (32.0-36.0); MEAN CELL VOLUME 85.1 fl (80-96); MEAN PLT VOLUME 8.9 fl (7.5-11.1); NEUT % 64.5 % (42.8-82.8); PLATELET COUNT 507 K/MM3 (134-434); RBC 3.99 M/mm3 (3.60-5.2); RDW 16.9 % (11.6-15.6); WHITE BLOOD COUNT 11.4 K/mm3 (4.0-10.0)
[2018-02-18] MEDS ORDERED: PT OWN MED DRAWER 7, Y5N ONE (10:34)
[2018-02-18] MEDS: THIAMINE HCL 200 MG/2 ML VIAL IM SCH (10:43)
[2018-02-18] MEDS: FOLIC ACID 1 MG TABLET (FP) PO SCH (10:44)
[2018-02-18] MEDS: ENOXAPARIN NA (PORCINE) 40 MG/0.4 ML DISP.SYRIN SQ SCH (10:44)
[2018-02-18] MEDS: MULTIVITAMINS (DAILY MVI) TABLET (FP) PO SCH (10:44)
--- NOTE | 2018-02-18 11:20 | PN ---
Physical Exam: SUBJECTIVE: Patient seen and examined OBJECTIVE: Vital Signs Period Temp Pulse Resp BP Sys/Mccann Pulse Ox Last 24 Hr 97.5 F-98.3 F 63-70 18-19 118-128/76-91 99 GENERAL: The patient is awake, alert, and fully oriented, in no acute distress. HEAD: Normal with no signs of trauma. EYES: PERRL, extraocular movements intact, sclera anicteric, conjunctiva clear. No ptosis. ENT: Ears normal, nares patent, oropharynx clear without exudates, moist mucous membranes. NECK: Trachea midline, full range of motion, supple. LUNGS: Breath sounds equal, clear to auscultation bilaterally, no wheezes, no crackles, no accessory muscle use. HEART: Regular rate and rhythm, S1, S2 without murmur, rub or gallop. ABDOMEN: Soft, nontender, nondistended, normoactive bowel sounds, no guarding, no rebound, no hepatosplenomegaly, no masses. EXTREMITIES: 2+ pulses, warm, well-perfused, no edema. NEUROLOGICAL: Cranial nerves II through XII grossly intact. Normal speech, gait not observed. PSYCH: Normal mood, normal affect. SKIN: Warm, dry, normal turgor, no rashes or lesions noted Laboratory Results - last 24 hr 02/18/18 07:15 WBC 11.4 H RBC 3.99 Hgb 10.9 Hct 34.0 MCV 85.1 MCH 27.2 MCHC 31.9 L RDW 16.9 H Plt Count 507 H MPV 8.9 Absolute Neuts (auto) 7.3 Neutrophils % 64.5 Lymphocytes % 26.3 D Monocytes % 8.0 Eosinophils % 0.8 Basophils % 0.4 Nucleated RBC % 0 Active Medications Generic Name Dose Route Start Last Admin Trade Name Freq PRN Reason Stop Dose Admin Enoxaparin Sodium 40 mg 02/12/18 10:00 02/18/18 10:44 Lovenox - SQ 40 mg DAILY [facility] Administration Folic Acid 1 mg 02/13/18 10:00 02/18/18 10:44 Folic Acid - PO 1 mg DAILY [facility] Administration Morphine Sulfate 4 mg 02/18/18 06:13 02/18/18 10:40 Morphine Sulfate IVPUSH 4 mg Q4H PRN Administration PAIN LEVEL 6-10 Multivitamins/Minerals/Vitamin C 1 tab 02/13/18 10:00 02/18/18 10:44 Tab-A-Vit - PO 1 tab DAILY [facility] Administration Ondansetron HCl 4 mg 02/11/18 22:11 02/12/18 00:03 Zofran Injection IVPUSH 4 mg Q6H PRN Administration NAUSEA Thiamine HCl 200 mg 02/13/18 10:00 02/18/18 10:43 Vitamin B1 Injection - IM 200 mg DAILY [facility] Administration ASSESSMENT/PLAN:
[2018-02-18 11:51] LABS: ALBUMIN 2.8 g/dl (3.4-5.0); ANION GAP 6 (8-16); BLOOD UREA NITROGEN 5 mg/dL (7-18); CALCIUM 9.2 mg/dL (8.5-10.1); CHLORIDE 103 mmol/L (98-107); CO2 30 mmol/L (21-32); GLUCOSE,RANDOM 84 mg/dL (74-106); LIPASE 654 U/L (73-393); POTASSIUM 4.5 mmol/L (3.5-5.1); SODIUM 139 mmol/L (136-145)
[2018-02-18 12:07] LABS: ALK PHOS 124 U/L (45-117); BILIRUBIN,TOTAL 0.3 mg/dL (0.2-1.0); CREATININE 0.5 mg/dL (0.55-1.02); SGOT/AST 21 U/L (15-37); SGPT/ALT 23 U/L (12-78); TOT PROT 6.6 g/dl (6.4-8.2)
[2018-02-18] MEDS ORDERED: KETOROLAC TROMETHAMINE 10 MG TABLET PO PRN (13:18)
--- NOTE | 2018-02-18 13:43 | DS ---
Physical Exam: SUBJECTIVE: Patient seen and examined at the [facility]. No abdominal, no nausea, no chest pain. OBJECTIVE: Vital Signs Period Temp Pulse Resp BP Sys/Mccann Pulse Ox Last 24 Hr 97.5 F-98.3 F 63-70 18-19 118-128/76-91 99 PHYSICAL EXAM GENERAL: The patient is awake, alert, and fully oriented, in no acute distress. HEAD: Normal with no signs of trauma. EYES: PERRL, extraocular movements intact, sclera anicteric, conjunctiva clear. No ptosis. ENT: Ears normal, nares patent, oropharynx clear without exudates, moist mucous membranes. NECK: Trachea midline, full range of motion, supple. LUNGS: Breath sounds equal, clear to auscultation bilaterally, no wheezes, no crackles, no accessory muscle use. HEART: Regular rate and rhythm, S1, S2 without murmur, rub or gallop. ABDOMEN: Soft, nontender, nondistended, normoactive bowel sounds, no guarding, no rebound, no hepatosplenomegaly, no masses. LABS Laboratory Results - last 24 hr 02/18/18 02/18/18 07:15 07:15 WBC 11.4 H RBC 3.99 Hgb 10.9 Hct 34.0 MCV 85.1 MCH 27.2 MCHC 31.9 L RDW 16.9 H Plt Count 507 H MPV 8.9 Absolute Neuts (auto) 7.3 Neutrophils % 64.5 Lymphocytes % 26.3 D Monocytes % 8.0 Eosinophils % 0.8 Basophils % 0.4 Nucleated RBC % 0 Sodium 139 Potassium 4.5 Chloride 103 Carbon Dioxide 30 Anion Gap 6 L BUN 5 L Creatinine 0.5 L Creat Clearance w eGFR > 60 Random Glucose 84 Calcium 9.2 Total Bilirubin 0.3 D AST 21 ALT 23 Alkaline Phosphatase 124 H Total Protein 6.6 Albumin 2.8 L Lipase 654 H HOSPITAL COURSE: Date of Admission:02/11/18 Date of Discharge: 02/18/18 ASSESSMENT/PLAN: Patient is a 42 yo woman with pmh chronic pancreatitis, alcohol abuse and 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 GI: Acute pancreatitis, resolved Lipase trending down, no abdominal pain, no further nausea or vomiting, tolerating diet. Off antibiotics. Repeat labs as an outpatient. GI follow up outpatient. Patient aware that she needs to follow up on the pseudocysts seen on imaging as well as elevated tumor markers. She states she has unintentional weight loss and was to follow up outpatient. 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 No PCP, currently. Dr. David assigned with a follow up appointment tomorrow 02/19 at 1pm. Continue oncology outpatient, repeat tumor markers outpatient. Heme: Leukocytosis, trending down, no fevers, BC no growth Psyche No signs of withdrawal on exam For discharge today with follow with, PCP, GI and oncology as an outpatient. Minutes to complete discharge: 60 Discharge Summary Reason For Visit: ACUTE PANCREATITIS Current Active Problems Abdominal pain (Acute) Back pain (Acute) Pancreatic mass (Acute) Condition: Stable - Instructions Diet, Activity, Other Instructions: Mrs Olguin: You were admitted to [place] for Pancreatitis and treated with IV antibiotics. You will still need close monitoring and repeat blood work with your new PCP. Please follow up with Dr David tomorrow at 1pm (we made an appointment for you). You will need to have your bloodwork monitored and repeated, especially your CA-19 antigen. Please make sure you follow up with Dr. Waite and Dr. Hernandez for further workup/and monitoring of the pancreatic mass seen on imaging and tumor markers surveillance. Please return to the ER with any new or worsening symptoms. Please call me with any questions that you may have Mirlande Osorio NP [facility] [phone] Referrals: Nghia Taylor MD [Staff Physician] - Yovany Waite MD [Staff Physician] - (pancreatic mass, please see Dr. Waite for follow up labs ) Belen Mason MD [Staff Physician] - 1 Week (pancreatic mass, please Dr. Mason within 1 week after discharge) Disposition: HOME - Home Medications Comprehensive Discharge Medication List: Ambulatory Orders NK [No Known Home Medication] 02/11/18 This patient is new to me today: Yes Date on this admission: 02/18/18 Emergency Visit: Yes ED Registration Date: 02/11/18 Care time: The patient presented to the Emergency Department on the above date and was hospitalized for further evaluation of their emergent condition. Critical Care patient: No - Discharge Referral Referred to [facility] No
[2018-02-18 14:23] VITALS: TEMP 97.8
--- NOTE | 2018-02-18 15:25 | PN ---
Progress Note, Physician History of Present Illness: stable no complaints - Current Medication List Current Medications: Active Medications Enoxaparin Sodium (Lovenox -) 40 mg SQ DAILY [facility] Last Admin: 02/18/18 10:44 Dose: 40 mg Folic Acid (Folic Acid -) 1 mg PO DAILY [facility] Last Admin: 02/18/18 10:44 Dose: 1 mg Ketorolac Tromethamine (Toradol) 10 mg PO Q6HPO PRN PRN Reason: PAIN- Stop: 02/23/18 13:17 Multivitamins/Minerals/Vitamin C (Tab-A-Vit -) 1 tab PO DAILY [facility] Last Admin: 02/18/18 10:44 Dose: 1 tab Ondansetron HCl (Zofran Injection) 4 mg IVPUSH Q6H PRN PRN Reason: NAUSEA Last Admin: 02/12/18 00:03 Dose: 4 mg Thiamine HCl (Vitamin B1 Injection -) 200 mg IM DAILY [facility] Last Admin: 02/18/18 10:43 Dose: 200 mg - Objective Vital Signs: Vital Signs Temperature 97.8 F 02/18/18 14:00 Pulse Rate 63 02/18/18 05:55 Respiratory Rate 18 02/18/18 05:55 Blood Pressure 118/76 02/18/18 05:55 O2 Sat by Pulse Oximetry (%) 99 02/17/18 20:12 Constitutional: Yes: No Distress, Calm Cardiovascular: Yes: Regular Rate and Rhythm Respiratory: Yes: Regular, CTA Bilaterally Gastrointestinal: Yes: Normal Bowel Sounds, Soft Musculoskeletal: Yes: WNL Extremities: Yes: WNL Neurological: Yes: Alert, Oriented Psychiatric: Yes: Alert, Oriented Labs: CBC, BMP 02/18/18 07:15 02/18/18 07:15 Assessment/Plan 42 year old female with pmh chronic pancreatitis, alcohol abuse and 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 wbc increasing Plan: 1. Acute Pancreatitis 2. Pancreatic pseudocyst 3. Alcohol withdrawal 4. Thrombocytosis 5 leukocytosis plan wbc trending down close watch final plan need to be made rest as per the team
== END 2018-02-18 18:53 | disposition home or self-care (01) | DRG 282 ==
LOC: JER 16:24 → JERBED 21:35 → OBSVTOIN 22:11 → J6S 02-12 03:23 → INTOOBSV 02-12 15:57 → OBSVTOIN 02-12 15:57
PROVIDERS: ADMIT Internal Medicine; ATTEND Nurse Practitioner Family
DX: K85.90 Acute pancreatitis without necrosis or infection, unspecified (principal); K86.1 Other chronic pancreatitis; D72.829 Elevated white blood cell count, unspecified; K86.3 Pseudocyst of pancreas; F10.239 Alcohol dependence with withdrawal, unspecified; D47.3 Essential (hemorrhagic) thrombocythemia; E83.42 Hypomagnesemia; F17.210 Nicotine dependence, cigarettes, uncomplicated; R64 Cachexia; Z68.1 Body mass index [BMI] 19.9 or less, adult; E41 Nutritional marasmus; R00.0 Tachycardia, unspecified; I10 Essential (primary) hypertension
CPT/HCPCS: 36415; 74177-TC; 80048; 80053; 80061; 81003; 81015; 83690; 83721; 83735; 84100; 84703; 85025; 86301; 87040; 87086; 93005; 93010; 99283-25; G0378; J7030